=== PATIENT | male | born 1950 | race Caucasian/White ===

== ENCOUNTER → 2016-07-18 | Outpatient (CLI) | payer MEDICARE, MEDICAID ==
[~2016-07-18] MED LIST: /BACL20TA; ASPI325T; ATEN25TA; GLUC1000; LISI5TAB; METF500T4; NEUR100C; ROSU10TA; VICO5TAB
[2016-07-18 09:22] LABS: ANION GAP 6 MEQ/L (8-16); BLOOD UREA NITROGEN 18 MG/DL (7-18); CALCIUM LEVEL 8.9 MG/DL (8.8-10.2); CARBON DIOXIDE LEVEL 28 MEQ/L (21-32); CHLORIDE LEVEL 106 MEQ/L (98-107); CREATININE FOR GFR 0.94 MG/DL (0.70-1.30); GLOMERULAR FILTRATION RATE > 60.0 (>49); GLUCOSE, FASTING 212 MG/DL (80-110); POTASSIUM SERUM 4.4 MEQ/L (3.5-5.1); SODIUM LEVEL 140 MEQ/L (136-145)
== END ==
LOC: M LAB 07:51
PROVIDERS: ATTEND Family Medicine
DX: E11.9 Type 2 diabetes mellitus without complications (principal)

== ENCOUNTER 2019-06-30 09:40 | Emergency (ER) | payer MEDICARE, MEDICAID ==
[~2019-06-30] VITALS: Ht 177.8 cm; Wt 108.7 kg
[2019-06-30 09:40] VITALS: BP 178/85
[~2019-06-30 09:40] MED LIST changes: -/BACL20TA; +BACL1TAB9; +CRES10TA32; -ROSU10TA
[2019-06-30] MEDS ORDERED: BACT800T5 PO (10:01)
[2019-06-30] MEDS ORDERED: IBUP80TA PO (10:01)
== END 2019-06-30 10:12 | disposition home or self-care (01) ==
LOC: M ED 09:40
DX: K13.0 Diseases of lips (principal); E11.9 Type 2 diabetes mellitus without complications; I10 Essential (primary) hypertension; G47.33 Obstructive sleep apnea (adult) (pediatric); I25.2 Old myocardial infarction; M54.9 Dorsalgia, unspecified; Z88.1 Allergy status to other antibiotic agents; Z79.899 Other long term (current) drug therapy; Z79.82 Long term (current) use of aspirin; Z79.84 Long term (current) use of oral hypoglycemic drugs

== ENCOUNTER → 2020-08-24 | Outpatient (CLI) | payer MEDICARE, OTHER ==
[~2020-08-24] MED LIST changes: +BACT800T5 PO; +IBUP80TA PO
[2020-08-24 10:09] LABS: HEMATOCRIT 46.9 % (42.0-52.0); HEMOGLOBIN 15.9 g/dl (13.5-17.5); MEAN CORPUSCULAR HEMOGLOBIN 29.6 pg (27.0-33.0); MEAN CORPUSCULAR HGB CONC 33.9 g/dl (32.0-36.5); MEAN CORPUSCULAR VOLUME 87.2 fl (80.0-96.0); PLATELET COUNT, AUTOMATED 250 10^3/uL (150-450); RED BLOOD COUNT 5.38 10^6/uL (4.30-6.10); WHITE BLOOD COUNT 9.1 10^3/uL (4.0-10.0)
[2020-08-24 10:59] LABS: ALBUMIN 3.8 GM/DL (3.2-5.2); ALT/SGPT 46 U/L (12-78); BILIRUBIN,TOTAL 0.6 MG/DL (0.2-1.0); BLOOD UREA NITROGEN 21 MG/DL (7-18); CALCIUM LEVEL 9.8 MG/DL (8.8-10.2); CARBON DIOXIDE LEVEL 24 MEQ/L (21-32); CHLORIDE LEVEL 103 MEQ/L (98-107); CHOLESTEROL LEVEL 146 MG/DL (<200); CHOLESTEROL RISK RATIO 3.476 (<5); CREATININE FOR GFR 0.93 MG/DL (0.70-1.30); GLOMERULAR FILTRATION RATE > 60.0 (>49); GLUCOSE, FASTING 358 MG/DL (70-100); HDL CHOLESTEROL 42 MG/DL (>40); LDL CHOLESTEROL 78 MG/DL (<100); NON-HDL-C 104 MG/DL; SODIUM LEVEL 135 MEQ/L (136-145); TOTAL PROTEIN 6.7 GM/DL (6.4-8.2); TRIGLYCERIDES LEVEL 131 MG/DL (<150)
[2020-08-24 11:13] LABS: CREATININE, URINE 43.7 MG/DL; MALB URINE SIEMENS 28.5 MG/L; MAU/CREAT RATIO 65.2 MCG/MG (0.0-30.0)
[2020-08-24 16:03] LABS: HEMOGLOBIN A1c 12.4 %
== END ==
LOC: M LAB 08:55
PROVIDERS: ATTEND Family Medicine
DX: Z12.5 Encounter for screening for malignant neoplasm of prostate (principal); E11.9 Type 2 diabetes mellitus without complications
CPT/HCPCS: 36415; 80053; 80061; 82043; 83036; 85027; G0103

== ENCOUNTER 2021-02-06 05:28 | Inpatient (IN) | payer OTHER ==
[~2021-02-06] VITALS: Ht 177.8 cm; Wt 91.1 kg
[2021-02-06] MEDS ORDERED: ONDANSETRON 4MG/2ML VIAL As Ordered ONE ×2 (06:28→16:24)
[2021-02-06] MEDS ORDERED: ONDANSETRON 4MG/2ML VIAL IV ONE ×2 (06:30→10:55)
[2021-02-06 06:47] LABS: BASO # 0.1 10^3/uL (0.0-0.2); BASO % 0.4 % (0.0-1.0); EOS # 0.1 10^3/uL (0.0-0.5); EOS % 0.3 % (0.0-3.0); HEMATOCRIT 40.8 % (42.0-52.0); LYMPH # 1.3 10^3/uL (1.5-5.0); LYMPH % 6.7 % (24.0-44.0); MEAN CORPUSCULAR HEMOGLOBIN 29.6 pg (27.0-33.0); MEAN CORPUSCULAR HGB CONC 34.3 g/dl (32.0-36.5); MEAN CORPUSCULAR VOLUME 86.3 fl (80.0-96.0); MONO # 1.4 10^3/uL (0.0-0.8); MONO % 7.2 % (2.0-8.0); NEUTROPHILS # 16.4 10^3/uL (1.5-8.5); NEUTROPHILS % 84.5 % (36.0-66.0); PLATELET COUNT, AUTOMATED 284 10^3/uL (150-450); RED BLOOD COUNT 4.73 10^6/uL (4.30-6.10); WHITE BLOOD COUNT 19.5 10^3/uL (4.0-10.0)
[2021-02-06 07:00] LABS: ALBUMIN 2.8 GM/DL (3.2-5.2); ALT/SGPT 20 U/L (12-78); BILIRUBIN,DIRECT 0.3 MG/DL (0.0-0.2); BILIRUBIN,TOTAL 0.8 MG/DL (0.2-1.0); BLOOD UREA NITROGEN 18 MG/DL (7-18); CALCIUM LEVEL 9.2 MG/DL (8.8-10.2); CARBON DIOXIDE LEVEL 24 MEQ/L (21-32); CHLORIDE LEVEL 98 MEQ/L (98-107); CK-MB VALUE MASS 1.1 NG/ML (<3.6); CPK CREATINE PHOSPHOKINASE 70 U/L (39-308); CREATININE FOR GFR 0.94 MG/DL (0.70-1.30); GLOMERULAR FILTRATION RATE > 60.0 (>49); GLUCOSE, FASTING 386 MG/DL (70-100); LIPASE 47 U/L (73-393); MB/CK RELATIVE INDEX 1.57 (< OR =4); POTASSIUM SERUM 4.4 MEQ/L (3.5-5.1); SODIUM LEVEL 134 MEQ/L (136-145); TOTAL PROTEIN 6.1 GM/DL (6.4-8.2); TROPONIN I < 0.02 NG/ML (< 0.10)
[2021-02-06] MEDS ORDERED: NS 1,000 ML IV SCH ×2 (08:00→18:05)
--- NOTE | 2021-02-06 08:08 | REPVR ---
PROCEDURE INFORMATION: Exam: XR Chest Exam date and time: 02/06/2021 6:09 AM Age: 70 years old Clinical indication: Other: Chest pain TECHNIQUE: Imaging protocol: XR of the chest. Views: 1 view. COMPARISON: No relevant prior studies available. FINDINGS: Lungs: Emphysematous change, without acute airspace disease. Pleural spaces: No pleural effusion. Heart/Mediastinum: No cardiomegaly. Bones/joints: Median sternotomy. Osteopenia and degenerative change. IMPRESSION: Emphysematous change, without acute airspace disease. Electronically signed by: Jimmie Vela On 02/06/2021 08:08:05 AM
[2021-02-06] MEDS ORDERED: MED REC COMMENT (10:04)
[2021-02-06] MEDS ORDERED: LISI-898 PO (10:04)
[2021-02-06] MEDS ORDERED: SIMV40TA20 PO (10:04)
[2021-02-06] MEDS ORDERED: GLIP5TAB20 PO (10:04)
[2021-02-06] MEDS ORDERED: DULO1CAP6 PO (10:04)
[2021-02-06] MEDS ORDERED: HOME MED LIST COMPLETE! XX SCH (10:05)
--- NOTE | 2021-02-06 10:32 | REP ---
INDICATION: left testicular swelling, scrotal abscess. COMPARISON: Comparison sonography May 17, 2013. TECHNIQUE: High-resolution bilateral scrotal sonography. FINDINGS: Testicular parenchyma is homogeneous. No intratesticular mass lesion is seen on either side. Right testis measures 4.6 x 2.1 x 3.3 cm. Left testicular dimensions are 4.6 x 2.1 x 2.9 cm. Testicular Doppler flow is preserved bilaterally. Right testis resistive index 0.57 and that on the left 0.44. Some nodular epididymal changes are noted consistent with previous epididymitis. No intrascrotal mass lesion is observed. There is a complex echogenic area in the left inferior scrotum/perineum margin containing small foci of shadowing and echogenic reflectors. This area measures 3.4 x 2.7 cm. The echogenic foci may reflect soft tissue air. Findings suggestive of perineal/scrotal abscess. This should be correlated with area of concern on clinical exam. IMPRESSION: Possible scrotal wall/peroneal abscess, 3.4 cm in greatest diameter. No intratesticular mass lesion is seen. No significant intrascrotal abnormality. <Electronically signed by Shabbir Castillo > 02/06/21 1021
[2021-02-06] MEDS ORDERED: VANCOMYCIN HCL IV ONE (10:50)
[2021-02-06] MEDS ORDERED: PIPERACILLIN/TAZOBACTAM SOD 4.5 GM in D5W MINI-BAG PLUS 50 ML IV ONE (10:50)
[2021-02-06] MEDS ORDERED: FLUID PLACE HOLDER IV ONE (10:50)
[2021-02-06] MEDS ORDERED: ACETAMINOPHEN 325 MG TAB PO ONE (10:55)
[2021-02-06] MEDS ORDERED: ISOVUE-370 76% 100ML VIAL As Ordered ONE (11:02)
[2021-02-06] MEDS ORDERED: VANCOMYCIN HCL 1,000 MG, VIAL MATE ADAPTER 1 EACH in NS 250 ML IV SCH (11:40)
[2021-02-06] MEDS ORDERED: ONDANSETRON 4MG/2ML VIAL IV PRN ×2 (11:50→17:10)
[2021-02-06] MEDS ORDERED: VANCOMYCIN HCL 1,000 MG, VIAL MATE ADAPTER 1 EACH in NS 250 ML IV ONE ×2 (12:00→13:00)
--- NOTE | 2021-02-06 12:03 | REP ---
INDICATION: IV only: scrotal/perineal abscesses. COMPARISON: Comparison is made with today's scrotal sonography. TECHNIQUE: Helical scanning is acquired following the intravenous injection of 100 mL of Isovue 370. Axial 3 3 mm images re-formatted. Coronal and sagittal MPR images are generated. 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 Bowel gas pattern is nonspecific. Axial CT images of the pelvis show no bony destructive lesion. No pelvic mass or adenopathy is seen. Urinary bladder, prostate, and seminal vesicles are unremarkable. There are 1 or 2 nonspecific left inguinal lymph nodes. The largest of these measures 1.4 cm in greatest diameter. There is a left inferior scrotal wall abscess containing air bubbles. The air and fluid collection in the left inferior scrotum measures 5.8 cm in greatest dimension by 1.6 cm by 3.3 cm. There is a tract containing air bubbles and a small quantity of fluid extending to the left side perianal region where there is another air and fluid collection measuring approximately 3.8 cm in greatest diameter. IMPRESSION: Left inferior scrotum left perineum and left perianal abscess containing air bubbles and some fluid. There are 2 small reactive lymph nodes in the left inguinal soft tissues. No other significant finding. <Electronically signed by Shabbir Castillo > 02/06/21 [id number]
--- NOTE | 2021-02-06 12:51 | SMCUROLCON ---
Urology Consultation General Date of Consultation 02/06/21 Reason For Consultation asked to see re scrotal/perineal abscess History of Present Illness 70yo wm with dm2 presents with several days of scrotal pain. Pt squeezed a boil early on. Things worsened with time. Fevers. Nausea. U/s and ct done. S crotal and perineal abscess. Past Medical History Medical History dm2 cad htn Surgical Hstory cabg knees back surgeries Family History Significant Family History: No pertinent family hx Social History * Smoker: non-smoker Drugs: denies Medications Current Medications Current Medications Medications (Trade) Dose Ordered Sig/Olivia Route PRN Reason Start Time Stop Time Status Last Admin Dose Admin Acetaminophen (Tylenol Tab) 650 mg Q4H PRN PO MILD PAIN or TEMP > 101 02/06/21 11:40 UNV Duloxetine HCl (Cymbalta) 60 mg DAILY PO 02/07/21 09:00 UNV Home Med (Home Med List Complete!) ASDIRECTED XX 02/06/21 10:05 02/06/21 10:06 DC Lisinopril (Prinivil) 5 mg DAILY PO 02/07/21 09:00 UNV Piperacillin Sod/ Tazobactam Sod 3.375 gm/Dextrose 50 ml @ 50 mls/hr Q6H IV 02/06/21 11:40 UNV Simvastatin (Zocor) 40 mg QHS PO 02/06/21 21:00 UNV Sodium Chloride 1,000 ml @ 100 mls/hr Q10H IV 02/06/21 08:00 02/06/21 08:20 Vancomycin HCl 1000 mg/IV Miscellaneous Supplies 1 each/ Sodium Chloride 270 ml @ 270 mls/hr Q12H IV 02/06/21 11:40 UNV Allergies Allergies: Coded Allergies: Tetracyclines (Verified Allergy, Mild, BLISTERS, 06/30/19) Review of Systems General: Reports: Malaise Constitutional: Reports: Fever Eyes: Denies: Vision change ENT: Denies: Head Aches Skin: Reports: Other (scrotal skin changes) Pulmonary: Denies: Cough Cardiovascular: Denies Palpitations Gastrointestinal: Reports: Nausea Genitourinary: Denies: Dysuria, Frequency Hematologic: Denies: Bruising Endocrine: Denies: Polydipsia Musculoskeletal: Denies: Neck Pain Neurological: Denies: Weakness Psych: Reports: Mood Normal Physical Examination General Exam: Alert, Cooperative, No Acute Distress EYE EXAM: Conjunctiva & lids normal ENT EXAM: Mucous membr. moist/pink Neck Exam: Supple Chest Exam: Clear to auscultation Heart Exam: Rate Normal Abdomen Exam: Soft; No: Tenderness Male Exam penis without lesions testes epididymides normal scrotal skin about 2in x 2in, dark scrotal abscess and perineal abscess, swelling and tenderness, fluctuance Extremity Exam: No: Clubbing Skin Exam: Nl turgor and temperature Neuro Exam: Normal Speech Psych Exam: Mental status NL Vital Signs/I&O Vital Signs Date Time Temp Pulse Resp B/P (MAP) Pulse Ox O2 Delivery O2 Flow Rate FiO2 02/06/21 11:00 101.2 107 18 150/55 (86) 95 Room Air Laboratory Data 24H Labs Laboratory Tests 2 02/06/21 06:24: Immature Granulocyte % (Auto) 0.9, Neutrophils (%) (Auto) 84.5H, Lymphocytes (%) (Auto) 6.7L, Monocytes (%) (Auto) 7.2, Eosinophils (%) (Auto) 0.3, Basophils (%) (Auto) 0.4, Neutrophils # (Auto) 16.4H, Lymphocytes # (Auto) 1.3L, Monocytes # (Auto) 1.4H, Eosinophils # (Auto) 0.1, Basophils # (Auto) 0.1, Nucleated Red Blood Cells % (auto) 0.0, Anion Gap 12, Glomerular Filtration Rate > 60.0, Calcium Level 9.2, Total Bilirubin 0.8, Direct Bilirubin 0.3H, Aspartate Amino Transf (AST/SGOT) 10, Alanine Aminotransferase (ALT/SGPT) 20, Alkaline Phosphat ase 84, Total Creatine Kinase 70, Creatine Kinase MB 1.1, Creatine Kinase MB Relative Index 1.57, Troponin I < 0.02, Total Protein 6.1L, Albumin 2.8L, Albumin/Globulin Ratio 0.8, Lipase 47L 02/06/21 08:16: Lactic Acid Level 2.1*H 02/06/21 12:22: 02/06/21 12:23: Urine Color YELLOW, Urine Appearance CLEAR, Urine pH 5.0, Urine Specific [place] 1.030, Urine Protein NEGATIVE, Urine Glucose (UA) 3+H, Urine Ketones 1+H, Urine Blood NEGATIVE, Urine Nitrite NEGATIVE, Urine Bilirubin NEGATIVE, Urine Urobilinogen 0.2, Urine Leukocyte Esterase NEGATIVE, Urine WBC (Auto) 0, Urine RBC (Auto) 1, Urine Hyaline Casts (Auto) 0, Urine Bacteria (Auto) NEGATIVE, Urine Squamous Epithelial Cells 0, Urine Sperm (Auto) CBC/BMP Laboratory Tests 02/06/21 06:24 Microbiology Microbiology 02/06/21 Blood Culture, Received Pending 02/06/21 Respiratory Virus Panel (PCR) ([facility]) - Final, Complete 02/06/21 Blood Culture, Received Pending Assessment left scrotal and perineal abscess on exam and imaging leukocytosis elevated lactate fever pt will require incision and drainage of abscess in OR, necrotic scrotal wall tissue will be excised broad spectrum antibiotic coverage - vanc and Zosyn culture of abscess will be obtained at time of surgery covid testing if not already done keep pt npo will look into when I can do surgery Plan see above DEANDRE JOSEPH MD Feb 06, 2021 12:51
[2021-02-06] MEDS ORDERED: propofoL 200 MG/20 ML VIAL As Ordered ONE (14:29)
[2021-02-06] MEDS ORDERED: LIDOCAINE 2% 100MG/5ML SDV (FOR ANES.) As Ordered ONE (14:29)
[2021-02-06] MEDS ORDERED: fentaNYL 100 MCG/2 ML INJECTION (J3010) As Ordered ONE ×2 (14:29→16:21)
[2021-02-06] MEDS ORDERED: MIDAZOLAM INJ 2MG/2ML VIAL (J2250 PER 1MG) As Ordered ONE (14:30)
--- NOTE | 2021-02-06 14:35 | HPEPDOC ---
[facility] Medical History & Physical Date of Admission Feb 06, 2021 Date of Service: Feb 06, 2021 Attending Physician: BONITA RODRIGUEZ MD History and Physical CHIEF COMPLAINT: Scrotal pain HISTORY OF PRESENT ILLNESS: 70 yo M with a history of NIDDM, HTN, HLD, chronic back pain managed with smok ing marijuana, CAD s/p remote CABG who developed N/V 4 d ago and then noticed a swelling to his inner thigh on the L side that became painful overtime and turned purplish/back and grew in size and decided to present to the ED for it. In the ED, he was febrile to 101.2, and otherwise hypertensive to SBP 150s and reported some moderate pain. On examination he had a hyperpigmented scrotal wall abscess. Workup was notable for leukocytosis to 19.5, with PMN predominance, scrotal US that showed a scrotal wall/peroneal abscess that was 3.4cm in diameter witout intratesticular masses or abnormalities, lactic acidosis to 2.1, while Hgb was 14, platelet 284, na 134, K 4.4, Cr 0.94 and CXR showed emphysema without infiltrates or effusions. Urology was consulted from the ED and recommended admission to medicine and a CT of the scrotum that is pending, while keeping him NPO as he plans for drainage. He otherwise reports that he had not noticed any fever at home, had no dysuria, hematuria, chest pain, palpitations, SOB, no recent sexual intercourse or penile discharge. PAST MEDICAL HISTORY: NIDDM HTN HLD chronic back pain managed with smoking marijuana CAD s/p remote CABG Has a history of MRSA PAST SURGICAL HISTORY: CABG Bilateral knee surgeries Back surgeries Bilateral cataract surgery Tonsillectomy SOCIAL HISTORY: Tobacco use: Denies ETOH: Very rare Illicit drug use: smokes marijuana daily for chronic pain ALLERGIES: Please see below. REVIEW OF SYSTEMS: 10 point ROS was completed and otherwise negative, except as noted in the HPI. HOME MEDICATIONS: Please see below. PHYSICAL EXAMINATION: VITAL SIGNS: see below GENERAL APPEARANCE: NAD, disheveled/with long ungroomed gupta and hair HEENT: NCAT, EOMI, MMM CARDIOVASCULAR: RRR, no m/r/g LUNGS: CTAB without wheezing or crackles ABDOMEN: Normoactive bowel sounds, soft, NTND EXTREMITIES: WWP, no LE edema NEUROLOGICAL: CN 3-12 intact, speech clear, 5/5 strength PSYCHIATRIC: AOx3 : has puplish/black collection under L scrotum, tender LABORATORY DATA and IMAGING: Reviewed above MICROBIOLOGY: Please see below. ASSESSMENT: 70 yo M with a history of NIDDM, HTN, HLD, chronic back pain, CAD s/p remote CABG who developed N/V 4 d ago and then noticed a swelling to his inner thigh on the L side that became painful overtime and turned purplish/back and grew in size and decided to present to the ED who is now being admitted for a scrotal wall abscess. PLAN: Scrotal wall abscess: -urology consulted -Empiric vanc/piptazo, given sepsis and history of MRSA -MRSA PCR -NPO for potential I&D pending final word from urology on timing Sepsis: 2/2 scrotal wall abscess, w/ leukocytosis, fever, tachycardia -s/p IVF in the ED, currently hypertensive -continue empiric vanc/piptazo -f/u BCx -UA/UCx -CXR was negative for infectious process Lactic acidosis i/s/o sepsis -s/p fluids -will f/u at 4h DM: -hold home glipizide -NPO at this time, but I expect he will have a consistent carb post drainage with SSI AC/HS HTN: -will plan on resume home ACEi tomorrow AM HLD: - continue home simvastatin CAD: -s/p remote CABG Depression: -continue duloxetine DVT ppx: TEDs and SCDs for now pending urological procedure Vital Signs Vital Signs Date Time Temp Pulse Resp B/P (MAP) Pulse Ox O2 Delivery O2 Flow Rate FiO2 02/06/21 12:45 100.0 109 18 112/60 (77) 96 Room Air Laboratory Data Labs 24H Laboratory Tests 2 02/06/21 06:24: Immature Granulocyte % (Auto) 0.9, Neutrophils (%) (Auto) 84.5H, Lymphocytes (%) (Auto) 6.7L, Monocytes (%) (Auto) 7.2, Eosinophils (%) (Auto) 0.3, Basophils (%) (Auto) 0.4, Neutrophils # (Auto) 16.4H, Lymphocytes # (Auto) 1.3L, Monocytes # (Auto) 1.4H, Eosinophils # (Auto) 0.1, Basophils # (Auto) 0.1, Nucleated Red Blood Cells % (auto) 0.0, Anion Gap 12, Glomerular Filtration Rate > 60.0, Calcium Level 9.2, Total Bilirubin 0.8, Direct Bilirubin 0.3H, Aspartate Amino Transf (AST/SGOT) 10, Alanine Aminotransferase (ALT/SGPT) 20, Alkaline Phosphatase 84, Total Creatine Kinase 70, Creatine Kinase MB 1.1, Creatine Kinase MB Relative Index 1.57, Troponin I < 0.02, Total Protein 6.1L, Albumin 2.8L, Albumin/Globulin Ratio 0.8, Lipase 47L 02/06/21 08:16: Lactic Acid Level 2.1*H 02/06/21 12:22: 02/06/21 12:23: Urine Color YELLOW, Urine Appearance CLEAR, Urine pH 5.0, Urine Specific [place] 1.030, Urine Protein NEGATIVE, Urine Glucose (UA) 3+H, Urine Ketones 1+H, Urine Blood NEGATIVE, Urine Nitrite NEGATIVE, Urine Bilirubin NEGATIVE, Urine Urobilinogen 0.2, Urine Leukocyte Esterase NEGATIVE, Urine WBC (Auto) 0, Urine RBC (Auto) 1, Urine Hyaline Casts (Auto) 0, Urine Bacteria (Auto) NEGATIVE, Urine Squamous Epithelial Cells 0, Urine Sperm (Auto) 02/06/21 12:38: Lactic Acid Followup at 4 Hours 2.0 CBC/BMP Laboratory Tests 02/06/21 06:24 Microbiology Microbiology 02/06/21 Blood Culture, Received Pending 02/06/21 Respiratory Virus Panel (PCR) ([facility]) - Final, Complete 02/06/21 Blood Culture, Received Pending Home Medications Scheduled Duloxetine Hcl (Duloxetine HCl) 60 Mg Capsule.dr, 60 MG PO DAILY Glipizide (Glipizide ER) 5 Mg Tab.er.24, 5 MG PO DAILY Lisinopril (Lisinopril) 5 Mg Tablet, 5 MG PO DAILY Simvastatin (Simvastatin) 40 Mg Tablet, 40 MG PO QHS Miscellaneous Medications [Med Rec Comment] LIST OBTAINED FROM [facility] Allergies Coded Allergies: Tetracyclines (Verified Allergy, Mild, BLISTERS, 06/30/19) A-FIB/CHADSVASC A-FIB History Current/History of A-Fib/PAF?: No Current PO Anticoag Therapy: No Age/Risk Factor Scoring CHADSVASC: CHADSVASC Response (Comments) Value Age Risk Factor Age 65-74 years old 1 Gender Risk Factor Male 0 Hx of CHF No 0 Hx of HTN Yes 1 Hx of Stroke/TIA/or VTE No 0 Hx of Diabetes Yes 1 Hx of Vascular Disease Yes 1 Total 4 Treatment Treatment ordered: NONE Reason Anticoagulant not given: Not indicated/[id number] BONITA RODRIGUEZ MD Feb 06, 2021 14:35
[2021-02-06] MEDS ORDERED: METOCLOPRAMIDE INJ 10MG/2ML VIAL (J2765 PER 1) As Ordered ONE (16:24)
[2021-02-06] MEDS ORDERED: KETOROLAC 60MG 2ML VIAL As Ordered ONE (16:39)
--- NOTE | 2021-02-06 16:55 | IPNPDOC ---
Date Seen The patient was seen on 02/06/21. Progress Note s/p I and D and excision of necrotic tissue scrotal wall abscess (mostly left) that extended to perineum rectum not involved, left hemiscrotal space not involved cx's obtained packing in place will need packing changes might need return to OR for relook broad spectrum antibiotic coverage VS, I&O, 24H, Fishbone Vital Signs/I&O Vital Signs Date Time Temp Pulse Resp B/P (MAP) Pulse Ox O2 Delivery O2 Flow Rate FiO2 02/06/21 13:50 100.2 97 18 120/56 (77) 96 Room Air Laboratory Data 24H LABS Laboratory Tests 2 02/06/21 06:24: Immature Granulocyte % (Auto) 0.9, Neutrophils (%) (Auto) 84.5H, Lymphocytes (%) (Auto) 6.7L, Monocytes (%) (Auto) 7.2, Eosinophils (%) (Auto) 0.3, Basophils (%) (Auto) 0.4, Neutrophils # (Auto) 16.4H, Lymphocytes # (Auto) 1.3L, Monocytes # (Auto) 1.4H, Eosinophils # (Auto) 0.1, Basophils # (Auto) 0.1, Nucleated Red Blood Cells % (auto) 0.0, Anion Gap 12, Glomerular Filtration Rate > 60.0, Calcium Level 9.2, Total Bilirubin 0.8, Direct Bilirubin 0.3H, Aspartate Amino Transf (AST/SGOT) 10, Alanine Aminotransferase (ALT/SGPT) 20, Alkaline Phosp hatase 84, Total Creatine Kinase 70, Creatine Kinase MB 1.1, Creatine Kinase MB Relative Index 1.57, Troponin I < 0.02, Total Protein 6.1L, Albumin 2.8L, Albumin/Globulin Ratio 0.8, Lipase 47L 02/06/21 08:16: Lactic Acid Level 2.1*H 02/06/21 12:22: Methicillin-Resist S.aureus DNA PCR NOT DETECTED 02/06/21 12:23: Urine Color YELLOW, Urine Appearance CLEAR, Urine pH 5.0, Urine Specific [place] 1.030, Urine Protein NEGATIVE, Urine Glucose (UA) 3+H, Urine Ketones 1+H, Urine Blood NEGATIVE, Urine Nitrite NEGATIVE, Urine Bilirubin NEGATIVE, Urine Urobilinogen 0.2, Urine Leukocyte Esterase NEGATIVE, Urine WBC (Auto) 0, Urine RBC (Auto) 1, Urine Hyaline Casts (Auto) 0, Urine Bacteria (Auto) NEGATIVE, Urine Squamous Epithelial Cells 0, Urine Sperm (Auto) 02/06/21 12:38: Lactic Acid Followup at 4 Hours 2.0 CBC/BMP Laboratory Tests 02/06/21 06:24 Microbiology Microbiology 02/06/21 Blood Culture, Received Pending 02/06/21 Respiratory Virus Panel (PCR) ([facility]) - Final, Complete 02/06/21 Blood Culture, Received Pending DEANDRE JOSEPH MD Feb 06, 2021 16:55
[2021-02-06] MEDS ORDERED: oxyCODONE 5MG TAB PO PRN (17:10)
[2021-02-06] MEDS ORDERED: fentaNYL 100 MCG/2 ML INJECTION (J3010) IV PRN (17:10)
[2021-02-06] MEDS ORDERED: LR 1,000 ML IV SCH (17:10)
[2021-02-06 17:30] VITALS: BP 146/72
[2021-02-06 18:30] VITALS: BP 142/72
[2021-02-06] MEDS: PIPERACILLIN/TAZOBACTAM SOD 3.375 GM in D5W MINI-BAG PLUS 50 ML IV SCH (18:31)
[2021-02-06] MEDS ORDERED: DEXTROSE 50% 50 ML SYRINGE IV PRN (18:50)
[2021-02-06] MEDS ORDERED: GLUCOSE 4GM CHEW TABLET PO PRN (18:50)
[2021-02-06] MEDS ORDERED: GLUCAGON INJ 1MG VIAL SC PRN (18:50)
[2021-02-06 19:00] VITALS: BP 130/72
[2021-02-06] MEDS: SIMVASTATIN 40 MG TAB PO SCH (21:35)
[2021-02-06] MEDS: HumaLOG INSULIN (NovoLOG) PER UNIT SC SCH (21:37)
[2021-02-06] MEDS: VANCOMYCIN HCL 750 MG, VIAL MATE ADAPTER 1 EACH in NS 250 ML IV SCH (21:38)
[2021-02-06 22:00] VITALS: BP 137/50
[2021-02-06] MEDS: VANCOMYCIN HCL 500 MG in D5W MINI-BAG PLUS 100 ML IV SCH (23:00)
[2021-02-07] MEDS: PIPERACILLIN/TAZOBACTAM SOD 3.375 GM in D5W MINI-BAG PLUS 50 ML IV SCH ×5 (00:43→23:05)
--- NOTE | 2021-02-07 05:35 | ECGEPIP ---
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
[2021-02-07 06:00] VITALS: BP 115/50
[2021-02-07 06:43] LABS: HEMATOCRIT 34.8 % (42.0-52.0); MEAN CORPUSCULAR HEMOGLOBIN 29.9 pg (27.0-33.0); MEAN CORPUSCULAR HGB CONC 34.2 g/dl (32.0-36.5); MEAN CORPUSCULAR VOLUME 87.4 fl (80.0-96.0); PLATELET COUNT, AUTOMATED 267 10^3/uL (150-450); RED BLOOD COUNT 3.98 10^6/uL (4.30-6.10); WHITE BLOOD COUNT 13.5 10^3/uL (4.0-10.0)
[2021-02-07 06:44] LABS: HEMOGLOBIN 11.9 g/dl (13.5-17.5)
[2021-02-07 07:00] LABS: BLOOD UREA NITROGEN 16 MG/DL (7-18); CALCIUM LEVEL 8.1 MG/DL (8.8-10.2); CARBON DIOXIDE LEVEL 24 MEQ/L (21-32); CHLORIDE LEVEL 102 MEQ/L (98-107); CREATININE FOR GFR 0.87 MG/DL (0.70-1.30); GLOMERULAR FILTRATION RATE > 60.0 (>49); GLUCOSE, FASTING 318 MG/DL (70-100); MAGNESIUM LEVEL 1.6 MG/DL (1.8-2.4); SODIUM LEVEL 136 MEQ/L (136-145)
[2021-02-07] MEDS: DULoxetine 30MG CAPSULE (CYMBALTA) PO SCH (08:26)
[2021-02-07] MEDS: lisinopriL 5 MG TAB PO SCH (08:29)
[2021-02-07] MEDS: HumaLOG INSULIN (NovoLOG) PER UNIT SC SCH ×4 (08:29→22:05)
[2021-02-07] MEDS ORDERED: FLUBLOK(EGG FREE)(QUAD)INFLUENZA VACC 0.5ML SYRINGE 18YRS & OLDER IM ONE (09:00)
[2021-02-07] MEDS ORDERED: PREVNAR 13 VACCINE SYRINGE IM ONE (09:00)
[2021-02-07] MEDS: VANCOMYCIN HCL 750 MG, VIAL MATE ADAPTER 1 EACH in NS 250 ML IV SCH (10:09)
[2021-02-07] MEDS: VANCOMYCIN HCL 500 MG in D5W MINI-BAG PLUS 100 ML IV SCH (11:00)
[2021-02-07 14:00] VITALS: BP 120/62
[2021-02-07] MEDS ORDERED: MAG SULF 1GM/100ML (MAG RUN) 1 GM in IV 1 EA IV ONE (14:00)
--- NOTE | 2021-02-07 14:05 | IPNPDOC ---
Text Note Date of Service The patient was seen on 02/07/21. NOTE SUBJECTIVE: -Pain much improved after I&D yesterday -Unfortunately since starting antibiotics has been having diarrhea. No abdominal pain, fever, chills. Has had some N/V. OBJECTIVE: PHYSICAL EXAMINATION: VITAL SIGNS: see below GENERAL APPEARANCE: NAD HEENT: NCAT, EOMI, MMM CARDIOVASCULAR: RRR, no m/r/g LUNGS: CTAB without wheezing or crackles ABDOMEN: Normoactive bowel sounds, soft, NTND EXTREMITIES: WWP, no LE edema NEUROLOGICAL: CN 3-12 intact, speech clear, 5/5 strength PSYCHIATRIC: AOx3 LABORATORY DATA and IMAGING: Reviewed WBC downtrended to 13.5 MICROBIOLOGY: Please see below. ASSESSMENT: 70 yo M with a history of NIDDM, HTN, HLD, chronic back pain, CAD s/p remote CABG who developed N/V 4 d ago and then noticed a swelling to his inner thigh on the L side that became painful overtime and turned purplish/back and grew in size and decided to present to the ED and was admitted for a scrotal wall abscess s/p I&D by urology on 02/06. PLAN: Scrotal wall abscess: -urology consulted, s/p I&D on 02/06 -Empiric piptazo. DC vanc now that he is MRSA negative and gram stain thus far showing GPCs in pairs and GNRs. Sepsis: 2/2 scrotal wall abscess, w/ leukocytosis, fever, tachycardia -s/p IVF -continue empiric piptazo -f/u BCx NGTD -UA negative -CXR was negative for infectious process Lactic acidosis i/s/o sepsis, resolved -s/p fluids DM: -holding home glipizide -Consistent carb diet -levemir 5u QHS for persistent hyperglycemia -SSI AC/HS -FSBG AC/HS HTN: -continue home ACEi HLD: - continue home simvastatin CAD: -s/p remote CABG Depression: -continue duloxetine Diarrhea: likely 2/2 antibiotics -dc'd IV vanc -GI panel -probiotic ACHS DVT ppx: TEDs and SCDs VS,Fishbone, I+O VS, Fishbone, I+O Laboratory Tests 02/07/21 06:20 Vital Signs Date Time Temp Pulse Resp B/P (MAP) Pulse Ox O2 Delivery O2 Flow Rate FiO2 02/07/21 08:29 113/59 02/07/21 06:00 99.7 90 18 94 Room Air 02/06/21 16:55 10.0 I&O- Last 24 Hours up to 6 AM 02/07/21 05:59 Intake Total 1070 ml Output Total 10 ml Balance 1060 ml BONITA RODRIGUEZ MD Feb 07, 2021 14:05
--- NOTE | 2021-02-07 16:24 | IPNPDOC ---
Date Seen The patient was seen on 02/07/21. Progress Note pt seen and examined lying in bed watching football looks comfortable c/o diarrhea avss alert and appropriate belly soft wbc down a bit creatinine normal cx's pending medicine's note reviewed, greatly appreciate medicine's help will change packing tomorrow if there is a wound service at [facility], it should become involved wound vac? large wounds that are connected and will slowly heal by secondary intention pt's diarrhea will make for a less than ideal situation diarrhea secondary to antibiotic? if so, awfully quick to start rectum appeared not to be involved by infection and no debridement in area of sphincter was performed thank you [phone] VS, I&O, 24H, Fishbone Vital Signs/I&O Vital Signs Date Time Temp Pulse Resp B/P (MAP) Pulse Ox O2 Delivery O2 Flow Rate FiO2 02/07/21 14:00 98.7 92 20 120/62 (81) 96 Room Air 02/06/21 16:55 10.0 I&O- Last 24 Hours up to 6 AM 02/07/21 06:00 Intake Total 2405 ml Output Total 410 ml Balance 1995 ml Laboratory Data 24H LABS Laboratory Tests 2 02/06/21 19:17: Bedside Glucose (Misc Panel) 331H 02/07/21 06:20: Nucleated Red Blood Cells % (auto) 0.0, Anion Gap 10, Glomerular Filtration Rate > 60.0, Calcium Level 8.1L, Magnesium Level 1.6L 02/07/21 12:13: Bedside Glucose (Misc Panel) 301H CBC/BMP Laboratory Tests 02/07/21 06:20 Microbiology Microbiology 02/06/21 Gram Stain - Final, Resulted 02/06/21 Abscess Culture, Resulted Pending 02/06/21 Anaerobic Culture, Received Pending 02/06/21 Blood Culture - Preliminary, Resulted No growth after 24 hours . All specim... 02/06/21 Respiratory Virus Panel (PCR) ([facility]) - Final, Complete 02/06/21 Blood Culture - Preliminary, Resulted No growth after 24 hours . All specim... DEANDRE JOSEPH MD Feb 07, 2021 16:24
[2021-02-07] MEDS: LACTOBACILLUS ACIDOPHILUS CAP (BACID) PO SCH ×2 (18:01→22:03)
[2021-02-07] MEDS ORDERED: LEVEMIR (INSULIN DETEMIR) 1 UNITS/0.01ML SC SCH (21:00)
[2021-02-07 22:00] VITALS: BP 137/55
[2021-02-07] MEDS: SIMVASTATIN 40 MG TAB PO SCH (22:03)
[2021-02-08] MEDS: PIPERACILLIN/TAZOBACTAM SOD 3.375 GM in D5W MINI-BAG PLUS 50 ML IV SCH ×4 (05:11→22:56)
[2021-02-08 05:55] LABS: HEMATOCRIT 38.3 % (42.0-52.0); HEMOGLOBIN 12.9 g/dl (13.5-17.5); MEAN CORPUSCULAR HEMOGLOBIN 29.7 pg (27.0-33.0); MEAN CORPUSCULAR HGB CONC 33.7 g/dl (32.0-36.5); PLATELET COUNT, AUTOMATED 324 10^3/uL (150-450); RED BLOOD COUNT 4.35 10^6/uL (4.30-6.10); WHITE BLOOD COUNT 11.5 10^3/uL (4.0-10.0)
[2021-02-08 06:00] VITALS: BP 147/76
[2021-02-08 06:24] LABS: BLOOD UREA NITROGEN 11 MG/DL (7-18); CALCIUM LEVEL 8.4 MG/DL (8.8-10.2); CARBON DIOXIDE LEVEL 24 MEQ/L (21-32); CHLORIDE LEVEL 104 MEQ/L (98-107); CREATININE FOR GFR 0.71 MG/DL (0.70-1.30); GLOMERULAR FILTRATION RATE > 60.0 (>49); GLUCOSE, FASTING 246 MG/DL (70-100); MAGNESIUM LEVEL 2.1 MG/DL (1.8-2.4); POTASSIUM SERUM 3.6 MEQ/L (3.5-5.1); SODIUM LEVEL 138 MEQ/L (136-145)
[2021-02-08] MEDS: HumaLOG INSULIN (NovoLOG) PER UNIT SC SCH ×4 (08:40→20:36)
[2021-02-08] MEDS: DULoxetine 30MG CAPSULE (CYMBALTA) PO SCH (08:41)
[2021-02-08] MEDS: LACTOBACILLUS ACIDOPHILUS CAP (BACID) PO SCH ×4 (08:42→20:35)
[2021-02-08] MEDS: lisinopriL 5 MG TAB PO SCH (08:42)
[2021-02-08] MEDS ORDERED: LOPERAMIDE 2 MG CAPLET PO SCH (09:00)
[2021-02-08 14:00] VITALS: BP 153/75
[2021-02-08] MEDS: HYDROMORPHONE HCL 0.5 MG/ 0.5 ML SYRINGE (J1170 PER 1) IV PRN (15:47)
--- NOTE | 2021-02-08 15:58 | IPNPDOC ---
Date Seen The patient was seen on 02/08/21. Progress Note SUBJECTIVE: Patient is a 70-year-old male status post I&D of a scrotal abscess Monday. Since beginning antibiotics, however he does complain of having increased diarrhea and decreased appetite. He also reports nausea as well. Other symptoms patient reports is minor vomiting (spitting up). Declines experiencing chest pain, tachycardia, shortness of breath, pain with breathing, dysuria, hematuria, headache, dizziness OBJECTIVE PHYSICAL EXAMINATION: VITAL SIGNS: Please see below. GENERAL: 70-year-old occasion male, lying in bed, no acute distress HEENT: Head normocephalic/atraumatic CARDIOVASCULAR: Regular rate and rhythm, no murmurs, no rubs, no gallops. RESPIRATORY: Clear to auscultation bilaterally, no wheezes, no rhonchi, no crackles. ABDOMINAL: Hypoactive bowel sounds throughout, nontender to palpation, nondistended EXTREMITIES: Palpable radial and pedal pulses, no lower extremity swelling appreciated LABORATORY DATA, IMAGING STUDIES, MICROBIOLOGY: Reviewed DVT prophylaxis ordered?: Teds and sequentials ASSESSMENT AND PLAN: This is a 70-year-old occasion male with a scrotal abscess status post I&D with Dr. Skinner, who is experiencing diarrhea, nausea status post antibiotic administration. PROBLEMS: Scrotal wall abscess: -urology consulted, s/p I&D on 02/06 -Empiric piptazo. DC'd vanc now that he is MRSA negative and gram stain thus far showing GPCs in pairs and GNRs. Sepsis: 2/2 scrotal wall abscess, w/ leukocytosis, fever, tachycardia -s/p IVF -continue empiric piptazo -f/u BCx NGTD -UA negative -CXR was negative for infectious process Lactic acidosis i/s/o sepsis, resolved -s/p fluids DM: -holding home glipizide -Consistent carb diet -levemir 5u QHS for persistent hyperglycemia -SSI AC/HS -FSBG AC/HS HTN: -continue home ACEi HLD: - continue home simvastatin CAD: -s/p remote CABG Depression: -continue duloxetine Diarrhea: likely 2/2 antibiotics -dc'd IV vanc -GI panel -probiotic ACHS DVT ppx: TEDs and SCDs VS, I&O, 24H, Fishbone Vital Signs/I&O Vital Signs Date Time Temp Pulse Resp B/P (MAP) Pulse Ox O2 Delivery O2 Flow Rate FiO2 02/08/21 14:00 98.1 82 18 153/75 (101) 96 Room Air 02/06/21 16:55 10.0 I&O- Last 24 Hours up to 6 AM 02/08/21 06:00 Intake Total 1850 ml Output Total 600 ml Balance 1250 ml Laboratory Data 24H LABS Laboratory Tests 2 02/07/21 16:30: Bedside Glucose (Misc Panel) 252H 02/07/21 20:36: Bedside Glucose (Misc Panel) 253H 02/08/21 05:27: Nucleated Red Blood Cells % (auto) 0.0, Anion Gap 10, Glomerular Filtration Rate > 60.0, Calcium Level 8.4L, Magnesium Level 2.1 02/08/21 11:29: Bedside Glucose (Misc Panel) 249H CBC/BMP Laboratory Tests 02/08/21 05:27 Microbiology Microbiology 02/07/21 Gastrointestinal Tract Panel (PCR) - Final, Complete 02/06/21 Gram Stain - Final, Resulted 02/06/21 Abscess Culture, Resulted Pending 02/06/21 Anaerobic Culture, Received Pending 02/06/21 Blood Culture - Preliminary, Resulted No Growth after 48 hours. All Specime... 02/06/21 Respiratory Virus Panel (PCR) ([facility]) - Final, Complete 02/06/21 Blood Culture - Preliminary, Resulted No Growth after 48 hours. All Specime... GME ATTESTATION GME ATTESTATION My faculty preceptor for this patient encounter was physically present during the encounter and was fully available. All aspects of the patient interview, examination, medical decision making process, and medical care plan development were reviewed and approved by the faculty preceptor. The faculty preceptor is aware and concurs with the plan as stated in the body of this note and will a ttest to such by his/her cosignature. ATTENDING NOTE I personally examined Mr. Oliveros together with the entire teaching team, and I agree with the above noted assessment and plan. Briefly, he is a 70 yo M with a history of NIDDM, HTN, HLD, chronic back pain, CAD s/p remote CABG who was admitted for a scrotal wall abscess s/p I&D by urology on 02/06 and is on empiric zosyn with cultures growing GPCs in pairs and chains and GNRs, with course c/b diarrhea 2/2/ antibiotic therapy now improving with loperamide. Eladio Herrera DO Feb 08, 2021 15:58 BONITA RODRIGUEZ MD Feb 08, 2021 18:16
[2021-02-08] MEDS: LOPERAMIDE 2 MG CAPLET PO PRN (18:41)
[2021-02-08] MEDS: SIMVASTATIN 40 MG TAB PO SCH (20:35)
[2021-02-08] MEDS: LEVEMIR (INSULIN DETEMIR) 1 UNITS/0.01ML SC SCH (20:36)
[2021-02-08 21:05] VITALS: BP 134/83
[2021-02-09] MEDS: LOPERAMIDE 2 MG CAPLET PO PRN (02:47)
[2021-02-09] MEDS: PIPERACILLIN/TAZOBACTAM SOD 3.375 GM in D5W MINI-BAG PLUS 50 ML IV SCH ×2 (04:55→11:58)
[2021-02-09 05:48] LABS: HEMATOCRIT 38.6 % (42.0-52.0); HEMOGLOBIN 13.1 g/dl (13.5-17.5); MEAN CORPUSCULAR HEMOGLOBIN 29.2 pg (27.0-33.0); MEAN CORPUSCULAR HGB CONC 33.9 g/dl (32.0-36.5); MEAN CORPUSCULAR VOLUME 86.2 fl (80.0-96.0); PLATELET COUNT, AUTOMATED 335 10^3/uL (150-450); RED BLOOD COUNT 4.48 10^6/uL (4.30-6.10); WHITE BLOOD COUNT 10.5 10^3/uL (4.0-10.0)
[2021-02-09 05:54] VITALS: BP 145/69
[2021-02-09 06:20] LABS: BLOOD UREA NITROGEN 9 MG/DL (7-18); CALCIUM LEVEL 8.8 MG/DL (8.8-10.2); CARBON DIOXIDE LEVEL 25 MEQ/L (21-32); CHLORIDE LEVEL 104 MEQ/L (98-107); CREATININE FOR GFR 0.67 MG/DL (0.70-1.30); GLOMERULAR FILTRATION RATE > 60.0 (>49); GLUCOSE, FASTING 243 MG/DL (70-100); MAGNESIUM LEVEL 1.7 MG/DL (1.8-2.4); POTASSIUM SERUM 3.4 MEQ/L (3.5-5.1); SODIUM LEVEL 139 MEQ/L (136-145)
--- NOTE | 2021-02-09 06:52 | IPNPDOC ---
Date Seen The patient was seen on 02/09/21. Progress Note pt seen and examined yesterday afternoon packing was changed after giving pt dose of Dilaudid no new necrotic tissue wbc decreasing cx's pending nurse to change packing bid, Dilaudid before if need be no need to return to OR suggest getting general surgery involved to evaluate anal sphincter, pt totally incontinent of stool anticipate discharge home soon pt will need visiting nurse to change packing anticipate need for packing for several weeks thank you [phone] VS, I&O, 24H, Cindy Vital Signs/I&O Vital Signs Date Time Temp Pulse Resp B/P (MAP) Pulse Ox O2 Delivery O2 Flow Rate FiO2 02/09/21 05:54 99.0 72 18 145/69 (94) 97 Room Air 02/06/21 16:55 10.0 I&O- Last 24 Hours up to 6 AM 02/09/21 06:00 Intake Total 920 ml Output Total 300 ml Balance 620 ml Laboratory Data 24H LABS Laboratory Tests 2 02/08/21 11:29: Bedside Glucose (Misc Panel) 249H 02/08/21 17:30: Bedside Glucose (Misc Panel) 211H 02/08/21 20:14: Bedside Glucose (Misc Panel) 276H 02/09/21 05:28: Nucleated Red Blood Cells % (auto) 0.0, Anion Gap 10, Glomerular Filtration Rate > 60.0, Calcium Level 8.8, Magnesium Level 1.7L CBC/BMP Laboratory Tests 02/09/21 05:28 Microbiology Microbiology 02/07/21 Gastrointestinal Tract Panel (PCR) - Final, Complete 02/06/21 Gram Stain - Final, Resulted 02/06/21 Abscess Culture, Resulted Pending 02/06/21 Anaerobic Culture, Received Pending 02/06/21 Blood Culture - Preliminary, Resulted No Growth after 48 hours. All Specime... 02/06/21 Respiratory Virus Panel (PCR) ([facility]) - Final, Complete 02/06/21 Blood Culture - Preliminary, Resulted No Growth after 48 hours. All Specime... DEANDRE JOSEPH MD Feb 09, 2021 06:52
[2021-02-09] MEDS ORDERED: POTASSIUM CHLORIDE 10% LIQ 20 MEQ/15 ML UDC PO ONE (08:30)
[2021-02-09] MEDS: HumaLOG INSULIN (NovoLOG) PER UNIT SC SCH ×4 (08:38→21:00)
[2021-02-09] MEDS: LACTOBACILLUS ACIDOPHILUS CAP (BACID) PO SCH ×4 (08:38→21:24)
[2021-02-09] MEDS: lisinopriL 5 MG TAB PO SCH (08:40)
[2021-02-09] MEDS: DULoxetine 30MG CAPSULE (CYMBALTA) PO SCH (08:40)
[2021-02-09] MEDS ORDERED: MAG SULF 1GM/100ML (MAG RUN) 1 GM in IV 1 EA IV ONE (09:00)
[2021-02-09] MEDS: HYDROMORPHONE HCL 0.5 MG/ 0.5 ML SYRINGE (J1170 PER 1) IV PRN (12:12)
--- NOTE | 2021-02-09 14:10 | IPNPDOC ---
Date Seen The patient was seen on 02/09/21. Progress Note SUBJECTIVE: Patient is a 70-year-old male with history of type 2 diabetes, hypertension, hyperlipidemia, coronary artery disease status post CABG, depression, status post scrotal abscess I&D on 02/06/2021. Since procedure patient has been reporting constant diarrhea and is on his fourth day of Zosyn. Since 7 PM last night to this morning, reports having 7 episodes of diarrhea. He states he is seeing no blood in the diarrhea but is seeing blood on the toilet paper when he wipes. Review of systems: Constitutional: Denies chills, night sweats; reports fever (highest recorded overnight was 99 temporally) Cardiac: Denies chest pain, tachycardia Respiratory: Denies pain with breathing, coughing; reports short of breath with exertion which patient says is new since being here Gastrointestinal: Reports nausea, gagging, diarrhea Genitourinary: Denies dysuria, hematuria; reports straining with urination which patient endorses being new (feels like he has to go but nothing coming out) Neurological: Denies headache, dizziness, new numbness and tingling OBJECTIVE PHYSICAL EXAMINATION: VITAL SIGNS: Please see below. GENERAL: 70-year-old male, resting in bed, no acute distress, status post left scrotal abscess I&D on 02/06/2021, HEENT: Head normocephalic atraumatic CARDIOVASCULAR: Regular rate and rhythm, no murmurs, no rubs, no gallops. RESPIRATORY: Expiratory wheezes auscultated bilaterally (throughout left side and on right lung base). ABDOMINAL: Normoactive bowel sounds, nontender to palpation, nondistended EXTREMITIES: 2+ radial pulses bilaterally, no lower extremity edema appreciated LABORATORY DATA, IMAGING STUDIES, MICROBIOLOGY: Please see below. DVT prophylaxis ordered?: Teds and sequentials ASSESSMENT AND PLAN: This is a 70-year-old male status post I&D of a left scrotal abscess on 02/07/2021 on fourth day of Zosyn. He has suffered from diarrhea since procedure was done.. PROBLEMS: Scrotal wall abscess: -urology consulted, s/p I&D on 02/06 -Empiric piptazo (day 4). DC'd vanc now that he is MRSA negative and gram stain thus far showing GPCs in pairs and GNRs. Sepsis: 2/2 scrotal wall abscess, w/ leukocytosis, fever, tachycardia -s/p IVF -continue empiric piptazo -f/u BCx NGTD -UA negative -CXR was negative for infectious process -Changes to antibiotics will be made pending on culture results Lactic acidosis i/s/o sepsis, resolved -s/p fluids DM: -holding home glipizide -Consistent carb diet -levemir 5u QHS for persistent hyperglycemia -SSI AC/HS -FSBG AC/HS HTN: -continue home ACEi HLD: - continue home simvastatin CAD: -s/p remote CABG Depression: -continue duloxetine Diarrhea: likely 2/2 antibiotics -dc'd IV vanc -GI panel -probiotic ACHS -Due to ongoing diarrhea patient was supplemented with IV potassium (3.4 this a.m.) and magnesium (1.7 this a.m.) Pneumonia/deconditioning prophylaxis -Incentive spirometry ordered to encourage alveoli maximization prevention of atelectasis -PT eval was also placed and we welcome their recommendations DVT ppx: TEDs and SCDs VS, I&O, 24H, Fishbone Vital Signs/I&O Vital Signs Date Time Temp Pulse Resp B/P (MAP) Pulse Ox O2 Delivery O2 Flow Rate FiO2 02/09/21 12:43 18 02/09/21 08:40 158/86 02/09/21 05:54 99.0 72 97 Room Air 02/06/21 16:55 10.0 I&O- Last 24 Hours up to 6 AM 02/09/21 06:00 Intake Total 920 ml Output Total 300 ml Balance 620 ml Laboratory Data 24H LABS Laboratory Tests 2 02/08/21 17:30: Bedside Glucose (Misc Panel) 211H 02/08/21 20:14: Bedside Glucose (Misc Panel) 276H 02/09/21 05:28: Nucleated Red Blood Cells % (auto) 0.0, Anion Gap 10, Glomerular Filtration Rate > 60.0, Calcium Level 8.8, Magnesium Level 1.7L 02/09/21 11:10: Bedside Glucose (Misc Panel) 262H CBC/BMP Laboratory Tests 02/09/21 05:28 Microbiology Microbiology 02/07/21 Gastrointestinal Tract Panel (PCR) - Final, Complete 02/06/21 Gram Stain - Final, Complete 02/06/21 Abscess Culture - Final, Complete Staphylococcus Epidermidis 02/06/21 Anaerobic Culture, Received Pending 02/06/21 Blood Culture - Preliminary, Resulted No Growth after 72 hours. All specime... 02/06/21 Respiratory Virus Panel (PCR) ([facility]) - Final, Complete 02/06/21 Blood Culture - Preliminary, Resulted No Growth after 72 hours. All specime... GME ATTESTATION GME ATTESTATION My faculty preceptor for this patient encounter was physically present during the encounter and was fully available. All aspects of the patient interview, examination, medical decision making process, and medical care plan development were reviewed and approved by the faculty preceptor. The faculty preceptor is aware and concurs with the plan as stated in the body of this note and will attest to such by his/her cosignature. ATTENDING NOTE I, Carmelina Bowles, have independently examined this patient and performed my own physical exam, as well as reviewed the documentation and edited where necessary with the resident. For medical students we have performed the physical exam together and discussed medical decision making and I have verified the history. I have discussed in detail with the resident / student the findings and plan of treatment as documented by the resident / student and edited their note. I agree with their findings and treatment plan and have edited their documentation. I will continue to follow the patient during this hospital stay. Eladio Herrera DO Feb 09, 2021 14:10 CARMELINA BOWLES MD Feb 09, 2021 20:10
[2021-02-09] MEDS: TAMSULOSIN 0.4 MG CAP PO SCH ×2 (15:05→21:24)
[2021-02-09] MEDS: LevoFLOXacin 750 MG TABLET PO SCH (16:58)
[2021-02-09] MEDS: metroNIDAZOLE (FLAGYL) 500MG TABLET PO SCH ×2 (16:58→21:23)
[2021-02-09 20:23] VITALS: BP 107/73
[2021-02-09] MEDS: LEVEMIR (INSULIN DETEMIR) 1 UNITS/0.01ML SC SCH (21:24)
[2021-02-09] MEDS: SIMVASTATIN 40 MG TAB PO SCH (21:24)
[2021-02-10 05:00] VITALS: BP 154/77
[2021-02-10] MEDS: LevoFLOXacin 750 MG TABLET PO SCH (05:16)
[2021-02-10 05:39] LABS: HEMATOCRIT 38.1 % (42.0-52.0); HEMOGLOBIN 13.1 g/dl (13.5-17.5); MEAN CORPUSCULAR HEMOGLOBIN 29.6 pg (27.0-33.0); MEAN CORPUSCULAR HGB CONC 34.4 g/dl (32.0-36.5); PLATELET COUNT, AUTOMATED 344 10^3/uL (150-450); RED BLOOD COUNT 4.43 10^6/uL (4.30-6.10); WHITE BLOOD COUNT 9.7 10^3/uL (4.0-10.0)
[2021-02-10 06:06] LABS: BLOOD UREA NITROGEN 6 MG/DL (7-18); CALCIUM LEVEL 8.6 MG/DL (8.8-10.2); CARBON DIOXIDE LEVEL 29 MEQ/L (21-32); CHLORIDE LEVEL 103 MEQ/L (98-107); CREATININE FOR GFR 0.67 MG/DL (0.70-1.30); GLOMERULAR FILTRATION RATE > 60.0 (>49); GLUCOSE, FASTING 286 MG/DL (70-100); MAGNESIUM LEVEL 1.6 MG/DL (1.8-2.4); POTASSIUM SERUM 3.6 MEQ/L (3.5-5.1); SODIUM LEVEL 137 MEQ/L (136-145)
[2021-02-10] MEDS: HumaLOG INSULIN (NovoLOG) PER UNIT SC SCH ×4 (08:18→21:00)
[2021-02-10] MEDS: metroNIDAZOLE (FLAGYL) 500MG TABLET PO SCH ×3 (08:19→20:58)
[2021-02-10] MEDS: DULoxetine 30MG CAPSULE (CYMBALTA) PO SCH (08:19)
[2021-02-10] MEDS: LACTOBACILLUS ACIDOPHILUS CAP (BACID) PO SCH ×4 (08:19→20:58)
[2021-02-10] MEDS: TAMSULOSIN 0.4 MG CAP PO SCH ×2 (08:20→20:58)
[2021-02-10] MEDS: ACETAMINOPHEN TAB 650MG DOSE (2X325MG) PO PRN ×2 (08:21→12:29)
[2021-02-10 08:22] VITALS: BP 150/80
[2021-02-10] MEDS: MAG SULF 1GM/100ML (MAG RUN) 1 GM in IV 1 EA IV SCH ×2 (08:22→09:55)
--- NOTE | 2021-02-10 10:35 | REP ---
INDICATION: New onset sharp testicular pain. Known scrotal wall/peroneal abscess. COMPARISON: Comparison scrotal sonography February 06, 2021. TECHNIQUE: High-resolution bilateral scrotal sonography is performed. FINDINGS: Testicular parenchyma remains normal and homogeneous. No intratesticular mass lesion is seen. Testicular Doppler flow is preserved bilaterally. Resistive indices are 0.67 and 0.53 on the right and left respectively. Multiple small epididymal cysts are seen the largest on the right is 0.6 cm. Small bilateral hydroceles are noted. Previously noted left scrotal wall abscess is again seen measuring 2.9 x 0.5 x 0.8 cm today consistent with residual cavity post drainage. Inferior scrotal wall remains hyperemic and edematous. Right testis measures 4.8 x 1.9 x 3.2 cm. Left testicular dimensions are 4.7 x 1.8 x 2.9 cm. IMPRESSION: No evidence of intratesticular mass or testicular torsion. Small bilateral hydroceles. Decreased size of the cavity in the scrotal wall noted previously. <Electronically signed by Shabbir Castillo > 02/10/21 [id number]
[2021-02-10] MEDS: HYDROMORPHONE HCL 0.5 MG/ 0.5 ML SYRINGE (J1170 PER 1) IV PRN (10:36)
[2021-02-10] MEDS ORDERED: IBUPROFEN 400MG TAB PO PRN (11:10)
[2021-02-10] MEDS ORDERED: BOUDREAUX'S BUTT PASTE TOP PRN (11:25)
--- NOTE | 2021-02-10 11:54 | IPNPDOC ---
Date Seen The patient was seen on 02/10/21. Progress Note SUBJECTIVE: Patient is a 70-year-old male with status post I&D of a scrotal abscess, with reported diarrhea, and a new complaint of right testicular pain that began this morning. Patient states the pain began around 5 AM this morning when he got out of bed. He suddenly felt right sharp pain in his testicle that almost made him buckle over in pain. He describes the pain is annoying and constant but becomes sharp and severe at times. He said the Dilaudid helps with pain control some but still is experiences at sharp pain. He also ports that the diarrhea is better than yesterday but will still have breakthrough episodes with coughing and sneezing. He is able to make it to the toilet if he times his voids right. OBJECTIVE PHYSICAL EXAMINATION: VITAL SIGNS: Please see below. GENERAL: 70-year-old male, lying in bed, in mild distress due to testicular pain HEENT: Head normocephalic/atraumatic CARDIOVASCULAR: Regular rate and rhythm, no murmurs, rubs, no gallops. RESPIRATORY: Coarse inspiratory breath sounds with expiratory wheezes bilaterally. ABDOMINAL: Normoactive bowel sounds, nontender to palpation, nondistended EXTREMITIES: No lower extremity swelling appreciated Scrotum: I&D site absent of packing (patient thinks it probably fell out), reports tenderness to palpation on the left side but not as much on the right Anus: Erythematous due to amount of diarrhea and wiping, tender to palpation with sterile Q-tip applicator, unremarkable anal wink exam LABORATORY DATA, IMAGING STUDIES, MICROBIOLOGY: Please see below. Imaging: Scrotal ultrasound 02/10/2021: No evidence of intratesticular mass or testicular torsion. Small bilateral hydroceles. Decreased size of the cavity and scrotal wall noted previously. Pelvis CT with contrast 02/06/2021: Left inferior scrotum left perineum and left perianal abscess containing air bubbles and some fluid. There are 2 small reactive lymph nodes in the left inguinal soft tissues. No other significant finding. Scrotal ultrasound 02/06/2021: Possible scrotal wall/perineal abscess, 3.4 cm in greatest diameter. No intratesticular mass lesion is seen. No significant intrascrotal abnormality. Chest x-ray 02/06/2021: Emphysematous changes, without acute airspace disease Microbiology 02/07/21 Gastrointestinal Tract Panel (PCR) - Final, Complete 02/06/21 Gram Stain - Final, Complete 02/06/21 Abscess Culture - Final, Complete Staphylococcus Epidermidis 02/06/21 Anaerobic Culture, Received Pending 02/06/21 Blood Culture - Preliminary, Resulted No Growth after 72 hours. All specime... 02/06/21 Respiratory Virus Panel (PCR) ([facility]) - Final, Complete 02/06/21 Blood Culture - Preliminary, Resulted No Growth after 72 hours. All specime... DVT prophylaxis ordered?: Teds and sequentials ASSESSMENT AND PLAN: This is a 70-year-old male with status post I&D of a scrotal abscess, persistent but declining diarrhea, new onset right testicular pain. PROBLEMS: Scrotal wall abscess: -urology consulted, s/p I&D on 02/06 -Empiric piptazo (day 4). DC'd vanc now that he is MRSA negative and gram stain thus far showing GPCs in pairs and GNRs. -day 1 of Levaquin 750 mg daily and Flagyl 500 mg 3 times daily -Ensure that packing is changed with IV Dilaudid dose -Dr. Sun will be by again to examine patient today Right testicular pain -Stat ultrasound ordered and ruled out pathology such as testicular torsion -Patient is already receiving Dilaudid for severe pain and Tylenol for mild to moderate pain -Ibuprofen has been added for moderate pain Sepsis: 2/2 scrotal wall abscess, w/ leukocytosis, fever, tachycardia -s/p IVF -f/u BCx NGTD -UA negative -CXR was negative for infectious process -Levaquin and Flagyl have been started -Ensure that abscess remains packed Lactic acidosis i/s/o sepsis, resolved -s/p fluids DM: -holding home glipizide -Consistent carb diet -levemir 5u QHS for persistent hyperglycemia -SSI AC/HS -FSBG AC/HS HTN: -continue home ACEi HLD: - continue home simvastatin CAD: -s/p remote CABG Depression: -continue duloxetine Diarrhea: likely 2/2 antibiotics -dc'd IV vanc -GI panel -probiotic ACHS -Due to ongoing diarrhea patient was supplemented with IV potassium (3.4 this a.m.) and magnesium (1.7 this a.m.) -Metamucil and FiberCon have been added to encourage stool bulking -Zinc oxide paste has been ordered to help with irritation around anus -Cholestyramine will be added for further control if needed Pneumonia/deconditioning prophylaxis -Incentive spirometry ordered to encourage alveoli maximization prevention of atelectasis -PT eval was also placed and we welcome their recommendations DVT ppx: - c/w TEDs and SCDs VS, I&O, 24H, Fishbone Vital Signs/I&O Vital Signs Date Time Temp Pulse Resp B/P (MAP) Pulse Ox O2 Delivery O2 Flow Rate FiO2 02/10/21 10:36 18 Room Air 02/10/21 08:22 98 150/80 (103) 02/10/21 05:00 97.9 99 02/06/21 16:55 10.0 I&O- Last 24 Hours up to 6 AM 02/10/21 06:00 Intake Total 1470 ml Output Total 125 ml Balance 1345 ml Laboratory Data 24H LABS Laboratory Tests 2 02/09/21 17:11: Bedside Glucose (Misc Panel) 285H 02/09/21 20:53: Bedside Glucose (Misc Panel) 228H 02/10/21 05:23: Nucleated Red Blood Cells % (auto) 0.0, Anion Gap 5L, Glomerular Filtration Rate > 60.0, Calcium Level 8.6L, Magnesium Level 1.6L 02/10/21 11:32: Bedside Glucose (Misc Panel) 246H CBC/BMP Laboratory Tests 02/10/21 05:23 Microbiology Microbiology 02/07/21 Gastrointestinal Tract Panel (PCR) - Final, Complete 02/06/21 Gram Stain - Final, Complete 02/06/21 Abscess Culture - Final, Complete Staphylococcus Epidermidis 02/06/21 Anaerobic Culture, Received Pending 02/06/21 Blood Culture - Preliminary, Resulted No Growth after 72 hours. All specime... 02/06/21 Respiratory Virus Panel (PCR) ([facility]) - Final, Complete 02/06/21 Blood Culture - Preliminary, Resulted No Growth after 72 hours. All specime... GME ATTESTATION GME ATTESTATION My faculty preceptor for this patient encounter was physically present during the encounter and was fully available. All aspects of the patient interview, examination, medical decision making process, and medical care plan development were reviewed and approved by the faculty preceptor. The faculty preceptor is aware and concurs with the plan as stated in the body of this note and will attest to such by his/her cosignature. ATTENDING NOTE I, Carmelina Bowles, have independently examined this patient and performed my own physical exam, as well as reviewed the documentation and edited where necessary with the resident. For medical students we have performed the physical exam together and discussed medical decision making and I have verified the history. I have discussed in detail with the resident / student the findings and plan of treatment as documented by the resident / student and edited their note. I agree with their findings and treatment plan and have edited their documentation. I will continue to follow the patient during this hospital stay. Eladio Herrera DO Feb 10, 2021 11:54 CARMELINA BOWLES MD Feb 10, 2021 13:27
[2021-02-10] MEDS: METAMUCIL (PSYLLIUM) PACKET PO SCH (12:28)
[2021-02-10] MEDS: FIBER-CON 625 MG TAB PO SCH ×2 (12:29→20:58)
[2021-02-10] MEDS ORDERED: PERCOCET 5MG/325MG TAB PO PRN (13:25)
[2021-02-10] MEDS ORDERED: FLOM0.4C39 PO (13:41)
[2021-02-10] MEDS ORDERED: RISATAB3 PO (13:41)
[2021-02-10] MEDS ORDERED: LEVO750T13 PO (13:41)
[2021-02-10] MEDS ORDERED: PERCOCET PO (13:41)
[2021-02-10] MEDS ORDERED: META1POW PO (13:41)
[2021-02-10] MEDS ORDERED: LISI10TA22 PO (13:41)
[2021-02-10] MEDS ORDERED: FLAG500T PO (13:41)
[2021-02-10] MEDS ORDERED: FIBE62TA PO (13:42)
[2021-02-10 14:00] VITALS: BP 114/66
--- NOTE | 2021-02-10 16:40 | IPNPDOC ---
Date Seen The patient was seen on 02/10/21. Progress Note pt seen and examined lying in bed watching tv comfortable avss surgical field looks great, no new necrotic tissue, packing in place testes wnl labs noted, wbc and creatinine normal cx's noted home on Levaquin is fine, at least 2wk can be discharged from my standpoint Levaquin and pain medication hopefully visiting nurse can stop by 3x/wk for packing change if pt can change the packing, that would be great I'll see pt in my office in 10 days or so, he should call office [phone] for appt showering is fine but no bathing there are two openings large opening on scrotum leads to left groin the scrotum itself, except the wall, is not involved the other opening on the perineum leads straight in both areas are actually connected thank you [phone] VS, I&O, 24H, Cindy Vital Signs/I&O Vital Signs Date Time Temp Pulse Resp B/P (MAP) Pulse Ox O2 Delivery O2 Flow Rate FiO2 02/10/21 14:00 97.8 98 17 114/66 (82) 95 Room Air 02/06/21 16:55 10.0 I&O- Last 24 Hours up to 6 AM 02/10/21 06:00 Intake Total 1470 ml Output Total 125 ml Balance 1345 ml Laboratory Data 24H LABS Laboratory Tests 2 02/09/21 17:11: Bedside Glucose (Misc Panel) 285H 02/09/21 20:53: Bedside Glucose (Misc Panel) 228H 02/10/21 05:23: Nucleated Red Blood Cells % (auto) 0.0, Anion Gap 5L, Glomerular Filtration Rate > 60.0, Calcium Level 8.6L, Magnesium Level 1.6L 02/10/21 11:32: Bedside Glucose (Misc Panel) 246H CBC/BMP Laboratory Tests 02/10/21 05:23 Microbiology Microbiology 02/07/21 Gastrointestinal Tract Panel (PCR) - Final, Complete 02/06/21 Gram Stain - Final, Complete 02/06/21 Abscess Culture - Final, Complete Staphylococcus Epidermidis 02/06/21 Anaerobic Culture, Received Pending 02/06/21 Blood Culture - Preliminary, Resulted No Growth after 72 hours. All specime... 02/06/21 Respiratory Virus Panel (PCR) ([facility]) - Final, Complete 02/06/21 Blood Culture - Preliminary, Resulted No Growth after 72 hours. All specime... DEANDRE JOSEPH MD Feb 10, 2021 16:40
--- NOTE | 2021-02-10 16:48 | DS.PDOC ---
Discharge Summary General Date of Admission Feb 06, 2021 at 11:39 Date of Discharge Feb 10, 2021 Attending Physician: ROCKY BOWLES MD Discharge Summary PROCEDURES PERFORMED DURING STAY: Incision and drainage of a left testicular abscess. ADMITTING DIAGNOSES: 1. Scrotal wall abscess 2. Right testicular pain 3. Sepsis secondary to scrotal wall abscess with leukocytosis, fever, tachyca rdia 4. Lactic acidosis 9/8/0 sepsis, resolved 5. Diabetes mellitus 6. Hypertension 7. Hyperlipidemia 8. Coronary artery disease 9. Depression 10. Diarrhea 11. Pneumonia/deconditioning prophylaxis DISCHARGE DIAGNOSES: 1. Scrotal wall abscess status post incision and drainage 2. Right testicular pain 3. Sepsis secondary to scrotal wall abscess with leukocytosis, fever, tachycardia; resolved 4. Lactic acidosis 9/8/0 sepsis, resolved 5. Diabetes mellitus 6. Hypertension; controlled 7. Hyperlipidemia 8. Coronary artery disease 9. Depression 10. Diarrhea 11. Pneumonia/deconditioning prophylaxis COMPLICATIONS/CHIEF COMPLAINT: Perineal Abscess, Scrotal Abscess. HISTORY OF PRESENT ILLNESS: Patient is a 70-year-old male with a history of NIDDM, hypertension, hyperlipidemia, chronic back pain management smoking marijuana, coronary artery disease status post remote CABG, who developed nausea vomiting 4 days prior to admission. He then noticed a swelling in his inner left thigh that became painful over time. It turned purplish/black and grew in size and decided to come to the ER for work-up. While in the ED he was febrile with 100.2 F fever, hypertensive with SBP of 150s and reporting moderate pain. Physical examination revealed a hyperpigmented scrotal wall abscess. Labs were significant for leukocytosis of 19.5 with neutrophil predominance, scrotal ultrasound showed a scrotal wall/perineal abscess 3.4 cm in diameter without entry testicular masses. Urology was consulted from the ED and recommended admission and a pelvic CT. He was kept n.p.o. for drainage plans. HOSPITAL COURSE: 02/06/2021: Was started on empiric Vanco/piptazo given sepsis and MRSA history. Samples were drawn for cultures. Respiratory panel negative. I&D of scrotal abscess was performed by Dr. Skinner who provided nurses with instructions for wound care 02/07/2021: Patient reported improvement in pain after incision and drainage of his scrotal abscess. He started having diarrhea shortly after the procedure was done however. Vancomycin was discontinued because MRSA was negative and Gram stain was showing gram-positive cocci in pairs. Chest x-ray was negative for infectious processes. GI panel is negative. 02/08/2021: Patient still reported copious amounts of diarrhea. Would have episodes with coughing and sneezing. He also reported decreased appetite and nausea. Piptazo was continued. Pathology revealed squamous epithelium with submucosa edema and acute inflammation; negative for malignancy. 02/09/2021: Piptazo was continued (day 5). Still reporting having multiple episodes of diarrhea. Blood culture showed no growth after 72 hours. 02/10/2021: Gram stain finalized showing no cells seen, few gram-positive cocci in pairs, few gram-negative rods. Final abscess culture revealed few staph epidermidis. Patient reported improvement in diarrhea. DISCHARGE MEDICATIONS: Please see below. ALLERGIES: Please see below. PHYSICAL EXAMINATION ON DISCHARGE: VITAL SIGNS: Please see below. GENERAL: 70-year-old male, lying in bed, in mild distress due to testicular pain HEENT: Head normocephalic/atraumatic CARDIOVASCULAR: Regular rate and rhythm, no murmurs, rubs, no gallops. RESPIRATORY: Coarse inspiratory breath sounds with expiratory wheezes bilaterally. ABDOMINAL: Normoactive bowel sounds, nontender to palpation, nondistended EXTREMITIES: No lower extremity swelling appreciated Scrotum: I&D site absent of packing (patient thinks it probably fell out), reports tenderness to palpation on the left side but not as much on the right Anus: Erythematous due to amount of diarrhea and wiping, tender to palpation with sterile Q-tip applicator, unremarkable anal wink exam LABORATORY DATA: Please see below. IMAGING: Scrotal ultrasound 02/10/2021: No evidence of intratesticular mass or testicular torsion. Small bilateral hydroceles. Decreased size of the cavity and scrotal wall noted previously. Pelvis CT with contrast 02/06/2021: Left inferior scrotum left perineum and left perianal abscess containing air bubbles and some fluid. There are 2 small reactive lymph nodes in the left inguinal soft tissues. No other significant finding. Scrotal ultrasound 02/06/2021: Possible scrotal wall/perineal abscess, 3.4 cm in greatest diameter. No intratesticular mass lesion is seen. No significant intrascrotal abnormality. Chest x-ray 02/06/2021: Emphysematous changes, without acute airspace disease PROGNOSIS: Improving ACTIVITY: [As tolerated]. DIET: As tolerated DISPOSITION: Home DISCHARGE INSTRUCTIONS AND ITEMS TO FOLLOW-UP ON OUTPATIENT: Please follow up with PCP and Urology within 5 days. Please call to confirm / schedule appointment. Please comply with treatment plan and medications and return to the ER if you experience any problems. DISCHARGE CONDITION: [Stable]. TIME SPENT ON DISCHARGE: 35 minutes. Vital Signs/I&Os Vital Signs Date Time Temp Pulse Resp B/P (MAP) Pulse Ox O2 Delivery O2 Flow Rate FiO2 02/10/21 14:00 97.8 98 17 114/66 (82) 95 Room Air 02/06/21 16:55 10.0 I&O- Last 24 Hours up to 6 AM 02/10/21 06:00 Intake Total 1470 ml Output Total 125 ml Balance 1345 ml Laboratory Data Labs 24H Laboratory Tests 2 02/09/21 17:11: Bedside Glucose (Misc Panel) 285H 02/09/21 20:53: Bedside Glucose (Misc Panel) 228H 02/10/21 05:23: Nucleated Red Blood Cells % (auto) 0.0, Anion Gap 5L, Glomerular Filtration Rate > 60.0, Calcium Level 8.6L, Magnesium Level 1.6L 02/10/21 11:32: Bedside Glucose (Misc Panel) 246H CBC/BMP Laboratory Tests 02/10/21 05:23 FSBS Laboratory Tests Test 02/09/21 17:11 02/09/21 20:53 02/10/21 11:32 Range/Units Bedside Glucose (Misc Panel) 285 228 246 80-115 MG/DL Microbiology Microbiology 02/07/21 Gastrointestinal Tract Panel (PCR) - Final, Complete 02/06/21 Gram Stain - Final, Complete 02/06/21 Abscess Culture - Final, Complete Staphylococcus Epidermidis 02/06/21 Anaerobic Culture, Received Pending 02/06/21 Blood Culture - Preliminary, Resulted No Growth after 72 hours. All specime... 02/06/21 Respiratory Virus Panel (PCR) ([facility]) - Final, Complete 02/06/21 Blood Culture - Preliminary, Resulted No Growth after 72 hours. All specime... Discharge Medications Scheduled Calcium Polycarbophil (Fiber-Lax) 625 Mg Tablet, 1 EA PO BID Duloxetine Hcl (Duloxetine HCl) 60 Mg Capsule.dr, 60 MG PO DAILY, (Reported) Glipizide (Glipizide ER) 5 Mg Tab.er.24, 5 MG PO DAILY, (Reported) L.acidoph/L.bulg/B.bif/S.therm (Erum-Bid Caplet) 1 Each Tablet, 1 EA PO WMHS Levofloxacin (Levofloxacin) 750 Mg Tablet, 750 MG PO DAILY@06 Lisinopril (Lisinopril) 10 Mg Tablet, 10 MG PO DAILY Metronidazole (Flagyl) 500 Mg Tablet, 500 MG PO TID Psyllium Husk/Aspartame (Metamucil Fiber Singles Packet) 3.4 Gm Powd.pack, 1 PKT PO DAILY Simvastatin (Simvastatin) 40 Mg Tablet, 40 MG PO QHS, (Reported) Tamsulosin HCl (Flomax) 0.4 Mg Capsule, 0.4 MG PO BID Scheduled PRN Oxycodone/Acetaminophen (Oxycodone-Acetaminophen 5-325) 1 Each Tablet, 1 TAB PO Q6H PRN for MODERATE PAIN (PS 5-7) Allergies Coded Allergies: Tetracyclines (Verified Allergy, Mild, BLISTERS, 06/30/19) GME ATTESTATION GME ATTESTATION My faculty preceptor for this patient encounter was physically present during the encounter and was fully available. All aspects of the patient interview, examination, medical decision making process, and medical care plan development were reviewed and approved by the faculty preceptor. The faculty preceptor is aware and concurs with the plan as stated in the body of this note and will attest to such by his/her cosignature. Eladio Herrera DO Feb 10, 2021 16:48
[2021-02-10 20:08] VITALS: BP 104/79
[2021-02-10] MEDS: SIMVASTATIN 40 MG TAB PO SCH (20:58)
[2021-02-10] MEDS: PERCOCET 5MG/325MG TAB PO PRN (20:59)
[2021-02-10] MEDS: LEVEMIR (INSULIN DETEMIR) 1 UNITS/0.01ML SC SCH (21:01)
[2021-02-11] MEDS: PERCOCET 5MG/325MG TAB PO PRN ×2 (04:34→10:47)
[2021-02-11] MEDS: LevoFLOXacin 750 MG TABLET PO SCH (05:20)
[2021-02-11 06:00] VITALS: BP 102/70
[2021-02-11 06:02] LABS: HEMATOCRIT 37.6 % (42.0-52.0); HEMOGLOBIN 12.9 g/dl (13.5-17.5); MEAN CORPUSCULAR HEMOGLOBIN 29.9 pg (27.0-33.0); MEAN CORPUSCULAR HGB CONC 34.3 g/dl (32.0-36.5); PLATELET COUNT, AUTOMATED 323 10^3/uL (150-450); RED BLOOD COUNT 4.32 10^6/uL (4.30-6.10); WHITE BLOOD COUNT 8.7 10^3/uL (4.0-10.0)
[2021-02-11 06:24] LABS: BLOOD UREA NITROGEN 7 MG/DL (7-18); CALCIUM LEVEL 8.9 MG/DL (8.8-10.2); CARBON DIOXIDE LEVEL 29 MEQ/L (21-32); CHLORIDE LEVEL 105 MEQ/L (98-107); CREATININE FOR GFR 0.66 MG/DL (0.70-1.30); GLOMERULAR FILTRATION RATE > 60.0 (>49); GLUCOSE, FASTING 235 MG/DL (70-100); MAGNESIUM LEVEL 1.7 MG/DL (1.8-2.4); POTASSIUM SERUM 3.8 MEQ/L (3.5-5.1); SODIUM LEVEL 140 MEQ/L (136-145)
--- NOTE | 2021-02-11 07:35 | DS.PDOC ---
Discharge Summary General Date of Admission Feb 06, 2021 at 11:39 Date of Discharge Feb 11, 2021 Attending Physician: CARMELINA ROBERTS MD Specialist/Consultants Involve: DEANDRE SKINNER MD Discharge Summary PROCEDURES PERFORMED DURING STAY: Incision and drainage of a left testicular abscess. ADMITTING DIAGNOSES: 1. Scrotal wall abscess 2. Right testicular pain 3. Sepsis secondary to scrotal wall abscess with leukocytosis, fever, tachycardia 4. Lactic acidosis i/s/o sepsis, resolved 5. Diabetes mellitus 6. Hypertension 7. Hyperlipidemia 8. Coronary artery disease 9. Depression 10. Diarrhea 11. Pneumonia/deconditioning prophylaxis DISCHARGE DIAGNOSES: 1. Scrotal wall abscess status post incision and drainage 2. Right testicular pain 3. Sepsis secondary to scrotal wall abscess with leukocytosis, fever, tachycardia; resolved 4. Lactic acidosis i/s/o sepsis, resolved 5. Diabetes mellitus 6. Hypertension; controlled 7. Hyperlipidemia 8. Coronary artery disease 9. Depression 10. Diarrhea 11. Pneumonia/deconditioning prophylaxis COMPLICATIONS/CHIEF COMPLAINT: Perineal Abscess, Scrotal Abscess. HISTORY OF PRESENT ILLNESS: Patient is a 70-year-old male with a history of NIDDM, hypertension, hyperlipidemia, chronic back pain management smoking marijuana, coronary artery disease status post remote CABG, who developed nausea vomiting 4 days prior to admission. He then noticed a swelling in his inner left thigh that became painful over time. It turned purplish/black and grew in size and decided to come to the ER for work-up. While in the ED he was febrile with 100.2 F fever, hypertensive with SBP of 150s and reporting moderate pain. Physical examination revealed a hyperpigmented scrotal wall abscess. Labs were significant for leukocytosis of 19.5 with neutrophil predominance, scrotal ultrasound showed a scrotal wall/perineal abscess 3.4 cm in diameter without entry testicular masses. Urology was consulted from the ED and recommended ad mission and a pelvic CT. He was kept n.p.o. for drainage plans. HOSPITAL COURSE: 02/06/2021: Was started on empiric Vanco/piptazo given sepsis and MRSA history. Samples were drawn for cultures. Respiratory panel negative. I&D of scrotal abscess was performed by Dr. Skinner who provided nurses with instructions for wound care. 02/07/2021: Patient reported improvement in pain after incision and drainage of his scrotal abscess. He started having diarrhea shortly after the procedure was done ho wever. Vancomycin was discontinued because MRSA was negative and Gram stain was showing gram-positive cocci in pairs. Chest x-ray was negative for infectious processes. GI panel is negative. 02/08/2021: Patient still reported copious amounts of diarrhea. Would have episodes with coughing and sneezing. He also reported decreased appetite and nausea. Piptazo was continued. Pathology revealed squamous epithelium with submucosa edema and acute inflammation; negative for malignancy. 02/09/2021: Piptazo was continued (day 5). Still reporting having multiple episodes of diarrhea. Blood culture showed no growth after 72 hours. 02/10/2021: Gram stain finalized showing no cells seen, few gram-positive cocci in pairs, few gram-negative rods. Final abscess culture revealed few staph epidermidis. Patient reported improvement in diarrhea. Discharge was planned for today but home health cannot be organized the patient stayed another night. Dr. Skinner has cleared patient to be discharged. He is to continue Levaquin and pain medication. He would like visiting nurse to stop by at least 3 times a week to change the packing, or have patient change back to me if he is able to do so. He should schedule an appointment with him for follow-up. Showering is fine but no bathing. 02/11/2021: IV magnesium given due to low level this morning. Patient to be discharged home with home health and instructed to follow-up with urology. Pain medications of had improvement of his pain around incision site DISCHARGE MEDICATIONS: Please see below. ALLERGIES: Please see below. PHYSICAL EXAMINATION ON DISCHARGE: VITAL SIGNS: Please see below. GENERAL: 70-year-old male, lying in bed, in mild distress due to testicular pain HEENT: Head normocephalic/atraumatic, eyes EOMI PERRLA CARDIOVASCULAR: Regular rate and rhythm (audible S4), no murmurs, rubs, no gallops. RESPIRATORY: Coarse inspiratory breath sounds with expiratory wheezes bilaterally. ABDOMINAL: Normoactive bowel sounds, nontender to palpation, nondistended EXTREMITIES: No lower extremity swelling appreciated Scrotum: I&D site absent of packing in the posterior scrotal I&D site (patient thinks it probably fell out), reports tenderness to palpation; blood-tinged drainage on briefs from I&D site LABORATORY DATA: Please see below. IMAGING: Scrotal ultrasound 02/10/2021: No evidence of intratesticular mass or testicular torsion. Small bilateral hydroceles. Decreased size of the cavity and scrotal wall noted previously. Pelvis CT with contrast 02/06/2021: Left inferior scrotum left perineum and left perianal abscess containing air bubbles and some fluid. There are 2 small reactive lymph nodes in the left inguinal soft tissues. No other significant finding. Scrotal ultrasound 02/06/2021: Possible scrotal wall/perineal abscess, 3.4 cm in greatest diameter. No intratesticular mass lesion is seen. No significant intrascrotal abnormality. Chest x-ray 02/06/2021: Emphysematous changes, without acute airspace disease PROGNOSIS: Improving ACTIVITY: [As tolerated]. DIET: As tolerated DISPOSITION: Home DISCHARGE INSTRUCTIONS AND ITEMS TO FOLLOW-UP ON OUTPATIENT: Please follow up with PCP and Urology within 5 days. Please call to confirm / schedule appointment with Dr. Skinner ([phone]). Take antibiotics and other medications as directed Showering is fine, but NO bathing. Please comply with treatment plan and medications and return to the ER if you experience any problems. DISCHARGE CONDITION: [Stable]. TIME SPENT ON DISCHARGE: 35 minutes. Vital Signs/I&Os Vital Signs Date Time Temp Pulse Resp B/P (MAP) Pulse Ox O2 Delivery O2 Flow Rate FiO2 02/11/21 06:00 97.5 74 18 102/70 (81) 97 Room Air 02/06/21 16:55 10.0 I&O- Last 24 Hours up to 6 AM 02/11/21 06:00 Intake Total 1400 ml Output Total 100 ml Balance 1300 ml Laboratory Data Labs 24H Laboratory Tests 2 02/10/21 11:32: Bedside Glucose (Misc Panel) 246H 02/10/21 17:38: Bedside Glucose (Misc Panel) 299H 02/10/21 20:24: Bedside Glucose (Misc Panel) 258H 02/11/21 05:32: Nucleated Red Blood Cells % (auto) 0.0, Anion Gap 6L, Glomerular Filtration Rate > 60.0, Calcium Level 8.9, Magnesium Level 1.7L CBC/BMP Laboratory Tests 02/11/21 05:32 FSBS Laboratory Tests Test 02/10/21 11:32 02/10/21 17:38 02/10/21 20:24 Range/Units Bedside Glucose (Misc Panel) 246 299 258 80-115 MG/DL Microbiology Microbiology 02/07/21 Gastrointestinal Tract Panel (PCR) - Final, Complete 02/06/21 Gram Stain - Final, Complete 02/06/21 Abscess Culture - Final, Complete Staphylococcus Epidermidis 02/06/21 Anaerobic Culture, Received Pending 02/06/21 Blood Culture - Preliminary, Resulted No Growth after 72 hours. All specime... 02/06/21 Respiratory Virus Panel (PCR) ([facility]) - Final, Complete 02/06/21 Blood Culture - Preliminary, Resulted No Growth after 72 hours. All specime... Discharge Medications Scheduled Calcium Polycarbophil (Fiber-Lax) 625 Mg Tablet, 1 EA PO BID Duloxetine Hcl (Duloxetine HCl) 60 Mg Capsule.dr, 60 MG PO DAILY, (Reported) Glipizide (Glipizide ER) 5 Mg Tab.er.24, 5 MG PO DAILY, (Reported) L.acidoph/L.bulg/B.bif/S.therm (Erum-Bid Caplet) 1 Each Tablet, 1 EA PO WMHS Levofloxacin (Levofloxacin) 750 Mg Tablet, 750 MG PO DAILY@06 Lisinopril (Lisinopril) 10 Mg Tablet, 10 MG PO DAILY Metronidazole (Flagyl) 500 Mg Tablet, 500 MG PO TID Psyllium Husk/Aspartame (Metamucil Fiber Singles Packet) 3.4 Gm Powd.pack, 1 PKT PO DAILY Simvastatin (Simvastatin) 40 Mg Tablet, 40 MG PO QHS, (Reported) Tamsulosin HCl (Flomax) 0.4 Mg Capsule, 0.4 MG PO BID Scheduled PRN Oxycodone/Acetaminophen (Oxycodone-Acetaminophen 5-325) 1 Each Tablet, 1 TAB PO Q6H PRN for MODERATE PAIN (PS 5-7) Allergies Coded Allergies: Tetracyclines (Verified Allergy, Mild, BLISTERS, 06/30/19) GME ATTESTATION GME ATTESTATION My faculty preceptor for this patient encounter was physically present during the encounter and was fully available. All aspects of the patient interview, examination, medical decision making process, and medical care plan development were reviewed and approved by the faculty preceptor. The faculty preceptor is aware and concurs with the plan as stated in the body of this note and will attest to such by his/her cosignature. ATTENDING NOTE I, Carmelina Roberts, have independently examined this patient and performed my own physical exam, as well as reviewed the documentation and edited where necessary with the resident. For medical students we have performed the physical exam together and discussed medical decision making and I have verified the history. I have discussed in detail with the resident / student the findings and plan of treatment as documented by the resident / student and edited their note. I agree with their findings and treatment plan and have edited their documentation. I will continue to follow the patient during this hospital stay. Time spent on discharge 35 minutes Deandre Herrera DO Feb 11, 2021 07:35 CARMELINA ROBERTS MD Feb 11, 2021 12:54
[2021-02-11 08:00] VITALS: BP 152/78
[2021-02-11] MEDS: LACTOBACILLUS ACIDOPHILUS CAP (BACID) PO SCH (08:13)
[2021-02-11] MEDS: HumaLOG INSULIN (NovoLOG) PER UNIT SC SCH (08:14)
[2021-02-11] MEDS: MAG SULF 1GM/100ML (MAG RUN) 1 GM in IV 1 EA IV SCH ×2 (08:15→09:26)
[2021-02-11] MEDS: ACETAMINOPHEN TAB 650MG DOSE (2X325MG) PO PRN (08:27)
[2021-02-11] MEDS: METAMUCIL (PSYLLIUM) PACKET PO SCH (09:12)
[2021-02-11 09:13] VITALS: BP 152/78
[2021-02-11] MEDS: TAMSULOSIN 0.4 MG CAP PO SCH (09:13)
[2021-02-11] MEDS: metroNIDAZOLE (FLAGYL) 500MG TABLET PO SCH (09:13)
[2021-02-11] MEDS: FIBER-CON 625 MG TAB PO SCH (09:13)
[2021-02-11] MEDS: DULoxetine 30MG CAPSULE (CYMBALTA) PO SCH (09:13)
--- NOTE | 2021-02-22 11:14 | ROOPDOC ---
[facility] Report Of Operation Report of Operation DATE OF PROCEDURE: 02/06/21 PREPROCEDURE DIAGNOSES: [Scrotal and perineal abscess]. POSTPROCEDURE DIAGNOSES: [Same]. PROCEDURE PERFORMED: [Incision and drainage of scrotal and perineal abscess, excision of necrotic tissue]. SURGEON: [Donovan Joseph MD [employer] DRIVER: [None], ANESTHESIA: [General endotracheal]. ESTIMATED BLOOD LOSS: Approximately [10] mL. COMPLICATIONS: [None]. REMARKS: [70-year-old white male. Presented to the emergency room with a scrotal and perineal abscess. Patient examined. CT was done and reviewed. Decision made to operate after discussion with patient. Incision and drainage was needed. As well, excision of necrotic scrotal wall was needed. Informed consent obtained. Risks discussed such as infection, bleeding, pain, scarring, injury to normal tissues, risks of anesthesia and others. I explained to patient that all tissue was going to be removed. I answered his questions. He wished to proceed.]. FINDINGS: SPECIMENS REMOVED: [Necrotic scrotal wall] PROCEDURE NOTE: . DESCRIPTION OF PROCEDURE: [Surgery was done under antimicrobial coverage. Patient was brought to the operating room. General anesthesia was secured without difficulty. Dorsolithotomy position. Well-padded. Patient examined. Dusky left scrotal wall. Prepped and draped in sterile fashion. An incision was made through the dusky scrotal wall. Purulent drainage was encountered. Cultures were taken both aerobic and anaerobic. Loculations were broken up using blunt dissection. The abscess involved the scrotal wall but not the left hemiscrotal contents. Testes and cords not involved. Necrotic scrotal wall tissue was excised. The perineum was then inspected. There was fullness to the perineum. An incision was made longitudinally and carried down with cautery. Soon more purulent drainage was encountered. Again loculations were broken up using blunt dissection. Both areas were copiously irrigated. The 2 areas were found to be connected. With a finger through the scrotal wall defect I could reach the perineal incision. The scrotal wall defect and perineal incision were separate. The rectum was not involved. I did a digital rectal examination. Both areas required excision of necrotic tissue. The scrotal area required more excision than the perineal area. Once satisfied the defects were packed with Kerlix. 2 separate packings were used. The scrotal wall defect was loosely closed with Prolene stitches. This ended the surgery. Counts were correct. Patient tolerated everything well and left the room in satisfactory condition. Necrotic tissue was sent to pathology.]. DEANDRE JOSEPH MD Feb 22, 2021 11:14
== END 2021-02-11 12:07 | disposition home health service (06) | DRG 854 ==
LOC: M ED 05:28 → M ED INP 11:39 → ENRESERV 13:26 → M MSPAV 17:45
PROVIDERS: ADMIT Internal Medicine; ATTEND Internal Medicine
PROC: 0WBM0ZZ Excision of Male Perineum, Open Approach (ICD-10-PCS; 2021-02-06)
PROC: 0VB50ZZ Excision of Scrotum, Open Approach (ICD-10-PCS; principal; 2021-02-06 13:29)
DX: A41.9 Sepsis, unspecified organism (principal); E87.2 Acidosis; K52.1 Toxic gastroenteritis and colitis; L02.215 Cutaneous abscess of perineum; N49.2 Inflammatory disorders of scrotum; E11.9 Type 2 diabetes mellitus without complications; I10 Essential (primary) hypertension; E78.5 Hyperlipidemia, unspecified; I25.10 Atherosclerotic heart disease of native coronary artery without angina pectoris; R15.9 Full incontinence of feces; F32.9 Major depressive disorder, single episode, unspecified; N50.811 Right testicular pain; Z95.1 Presence of aortocoronary bypass graft; Z86.14 Personal history of Methicillin resistant Staphylococcus aureus infection; Z98.41 Cataract extraction status, right eye; Z98.42 Cataract extraction status, left eye; M54.9 Dorsalgia, unspecified; Z79.84 Long term (current) use of oral hypoglycemic drugs; Z79.899 Other long term (current) drug therapy; Z88.8 Allergy status to other drugs, medicaments and biological substances; T36.8X5A Adverse effect of other systemic antibiotics, initial encounter; B95.8 Unspecified staphylococcus as the cause of diseases classified elsewhere

== ENCOUNTER 2021-02-16 10:50 | Emergency (ER) | payer OTHER ==
[~2021-02-16 10:50] MED LIST changes: +DULO1CAP6 PO; +FIBE62TA PO; +FLAG500T PO; +FLOM0.4C39 PO; +GLIP5TAB20 PO; +LEVO750T13 PO; +LISI-898 PO; +LISI10TA22 PO; +MED REC COMMENT; +META1POW PO; +PERCOCET PO; +RISATAB3 PO; +SIMV40TA20 PO
--- NOTE | 2021-02-16 14:13 | REP ---
INDICATION: SOB COMPARISON: 02/06/2021 as well as other prior exams. TECHNIQUE: PA/Lateral FINDINGS: Lungs: Clear, no infiltrate. Heart: Normal in size. Mediastinum: Mediastinal silhouette unremarkable. Pleural angles: Unremarkable.. Bones and soft tissues: Unremarkable. Multiple sternal wires mediastinal clips are present. IMPRESSION: No acute pulmonary disease. <Electronically signed by Jerod Washington > 02/16/21 [id number]
[2021-02-16 14:47] LABS: BASO # 0.1 10^3/uL (0.0-0.2); BASO % 0.5 % (0.0-1.0); EOS % 0.3 % (0.0-3.0); HEMATOCRIT 46.1 % (42.0-52.0); HEMOGLOBIN 15.4 g/dl (13.5-17.5); LYMPH # 1.6 10^3/uL (1.5-5.0); LYMPH % 14.6 % (24.0-44.0); MEAN CORPUSCULAR HEMOGLOBIN 29.7 pg (27.0-33.0); MEAN CORPUSCULAR HGB CONC 33.4 g/dl (32.0-36.5); MONO # 0.5 10^3/uL (0.0-0.8); MONO % 4.7 % (2.0-8.0); NEUTROPHILS # 8.7 10^3/uL (1.5-8.5); NEUTROPHILS % 78.7 % (36.0-66.0); PLATELET COUNT, AUTOMATED 406 10^3/uL (150-450); RED BLOOD COUNT 5.18 10^6/uL (4.30-6.10)
[2021-02-16] MEDS ORDERED: ONDANSETRON 4MG/2ML VIAL IV ONE (15:25)
[2021-02-16 15:44] LABS: ALBUMIN 2.9 GM/DL (3.2-5.2); ALT/SGPT 33 U/L (12-78); BILIRUBIN,DIRECT 0.1 MG/DL (0.0-0.2); BILIRUBIN,TOTAL 0.3 MG/DL (0.2-1.0); BLOOD UREA NITROGEN 11 MG/DL (7-18); CALCIUM LEVEL 9.6 MG/DL (8.8-10.2); CARBON DIOXIDE LEVEL 25 MEQ/L (21-32); CHLORIDE LEVEL 104 MEQ/L (98-107); CK-MB VALUE MASS 3.6 NG/ML (<3.6); CPK CREATINE PHOSPHOKINASE 142 U/L (39-308); CREATININE FOR GFR 0.86 MG/DL (0.70-1.30); FREE T4 1.44 NG/DL (0.76-1.46); GLOMERULAR FILTRATION RATE > 60.0 (>49); GLUCOSE, FASTING 276 MG/DL (70-100); LIPASE 56 U/L (73-393); MB/CK RELATIVE INDEX 2.54 (< OR =4); NT-PRO BNP 3836 PG/ML (<125); POTASSIUM SERUM 4.7 MEQ/L (3.5-5.1); SODIUM LEVEL 136 MEQ/L (136-145); TOTAL PROTEIN 6.7 GM/DL (6.4-8.2); TROPONIN I 0.02 NG/ML (< 0.10)
[2021-02-16] MEDS ORDERED: ISOVUE-370 76% 100ML VIAL As Ordered ONE (16:00)
--- NOTE | 2021-02-16 16:42 | REP ---
INDICATION: R chest pain, sob COMPARISON: None. TECHNIQUE: CT angiography of the chest attention pulmonary arteries after the intravenous administration of 75 cc Isovue 370. FINDINGS: There is diffuse respiratory motion artifact which obscures the detail, however, there is adequate visualization of the pulmonary arterial vasculature. No focal filling defects are present that would be considered consistent with acute pulmonary emboli. There is no mediastinal or hilar adenopathy. There are no pleural or pericardial effusions. The imaged upper abdomen and imaged osseous structures are within normal limits. Evaluation of the lung mclain shows an incidental calcified granuloma in the right lower lobe. Respiratory motion artifact does obscure the detail to a degree that a small pulmonary nodule could be obscured. There are no spiculated lesions or significant patchy parenchymal opacities. IMPRESSION: 1. The exam is limited, as described above, however there is no evidence of an acute pulmonary embolus. 2. No evidence of an acute pulmonary parenchymal process as described above. 3. Other findings as described above. <Electronically signed by Kwasi Solis > 02/16/21 [id number]
[2021-02-16 17:35] VITALS: O2SAT 96
[2021-02-16 18:07] LABS: MB/CK RELATIVE INDEX 2.46 (< OR =4); TROPONIN I 0.02 NG/ML (< 0.10)
[2021-02-16 19:18] VITALS: BP 164/102
--- NOTE | 2021-02-16 21:58 | ECGEPIP ---
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
--- NOTE | 2021-02-16 22:11 | ECGEPIP ---
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
== END 2021-02-16 19:26 | disposition home or self-care (01) ==
LOC: M ED 10:50 → EDBD 10:50 → M ED 19:26
DX: R06.02 Shortness of breath (principal); R07.9 Chest pain, unspecified; R05.9 Cough, unspecified; N49.2 Inflammatory disorders of scrotum; I45.10 Unspecified right bundle-branch block; R00.0 Tachycardia, unspecified; E11.9 Type 2 diabetes mellitus without complications; E78.9 Disorder of lipoprotein metabolism, unspecified; M54.9 Dorsalgia, unspecified; I25.10 Atherosclerotic heart disease of native coronary artery without angina pectoris; I10 Essential (primary) hypertension; Z95.1 Presence of aortocoronary bypass graft; F17.200 Nicotine dependence, unspecified, uncomplicated; Z88.1 Allergy status to other antibiotic agents; Z79.899 Other long term (current) drug therapy; Z79.891 Long term (current) use of opiate analgesic; Z79.2 Long term (current) use of antibiotics
CPT/HCPCS: 71046; 71275; 80048; 80076; 82550; 82553; 83690; 83880; 84439; 84443; 84484; 85025; 87798; 93005; 93041; 94760; 96374; 99285; J2405; Q9967

== ENCOUNTER → 2021-03-05 | Outpatient (REF) | payer OTHER ==
[~2021-03-05] MED LIST changes: -LISI-898 PO; +LISI5TAB11 PO
== END ==
LOC: M SMT 17:30
PROVIDERS: ATTEND Urology
DX: N49.2 Inflammatory disorders of scrotum (principal)
CPT/HCPCS: 87070; 87077; G0463

== ENCOUNTER 2021-07-24 00:41 | Emergency (ER) | payer OTHER ==
[~2021-07-24] VITALS: Ht 177.8 cm; Wt 94.8 kg
[2021-07-24 00:52] VITALS: BP 150/70
== END 2021-07-24 02:09 | disposition left against medical advice (07) ==
LOC: M ED 00:41
DX: Z53.21 Procedure and treatment not carried out due to patient leaving prior to being seen by health care provider (principal)

== ENCOUNTER → 2021-09-17 | Outpatient (CLI) | payer OTHER ==
[2021-09-17 09:37] LABS: BASO % 0.4 % (0.0-1.0); EOS # 0.2 10^3/uL (0.0-0.5); EOS % 2.2 % (0.0-3.0); HEMATOCRIT 49.8 % (42.0-52.0); LYMPH # 2.3 10^3/uL (1.5-5.0); LYMPH % 21.1 % (24.0-44.0); MEAN CORPUSCULAR HEMOGLOBIN 29.5 pg (27.0-33.0); MEAN CORPUSCULAR HGB CONC 34.1 g/dl (32.0-36.5); MEAN CORPUSCULAR VOLUME 86.5 fl (80.0-96.0); MONO # 0.7 10^3/uL (0.0-0.8); MONO % 6.5 % (2.0-8.0); NEUTROPHILS # 7.6 10^3/uL (1.5-8.5); NEUTROPHILS % 69.3 % (36.0-66.0); PLATELET COUNT, AUTOMATED 351 10^3/uL (150-450); RED BLOOD COUNT 5.76 10^6/uL (4.30-6.10)
[2021-09-17 10:00] LABS: ALBUMIN 4.1 GM/DL (3.2-5.2); ALT/SGPT 28 U/L (12-78); AMYLASE 50 U/L (25-115); BILIRUBIN,TOTAL 0.6 MG/DL (0.2-1.0); BLOOD UREA NITROGEN 15 MG/DL (7-18); CALCIUM LEVEL 10.6 MG/DL (8.8-10.2); CARBON DIOXIDE LEVEL 30 MEQ/L (21-32); CHLORIDE LEVEL 100 MEQ/L (98-107); CREATININE FOR GFR 1.09 MG/DL (0.70-1.30); GLOMERULAR FILTRATION RATE > 60.0 (>49); GLUCOSE, FASTING 227 MG/DL (70-100); LIPASE 408 U/L (73-393); POTASSIUM SERUM 5.1 MEQ/L (3.5-5.1); SODIUM LEVEL 135 MEQ/L (136-145); TOTAL PROTEIN 7.6 GM/DL (6.4-8.2)
[2021-09-17 11:24] LABS: HEMOGLOBIN A1c 8.9 %
== END ==
LOC: M LAB 08:19
PROVIDERS: ATTEND Family Medicine
DX: R11.2 Nausea with vomiting, unspecified (principal)

== ENCOUNTER → 2021-09-28 | Outpatient (CLI) | payer MEDICARE, OTHER, SELFPAY ==
[~2021-09-28] MED LIST changes: +E-Z-GAS II EFFERVESCENT PACKET (SODIUM BICARB./CITRIC ACID/SIMETHICONE) As Ordered ONE; +E-Z-HD 98% w/w 340GM SUSP BTL As Ordered ONE; +E-Z-PAQUE 96% w/w SUSP 176GM BTL As Ordered ONE
== END ==
LOC: M RAD 07:11
PROVIDERS: ATTEND Family Medicine
DX: R11.2 Nausea with vomiting, unspecified (principal)

== ENCOUNTER → 2022-03-14 | Outpatient (CLI) | payer MEDICARE ==
[~2022-03-14] MED LIST changes: -E-Z-GAS II EFFERVESCENT PACKET (SODIUM BICARB./CITRIC ACID/SIMETHICONE) As Ordered ONE; -E-Z-HD 98% w/w 340GM SUSP BTL As Ordered ONE; -E-Z-PAQUE 96% w/w SUSP 176GM BTL As Ordered ONE; +LEVO1TAB40 PO; -LEVO750T13 PO
== END ==
LOC: M RAD 11:02
PROVIDERS: ATTEND Podiatrist Foot & Ankle Surgery
DX: I73.9 Peripheral vascular disease, unspecified (principal)

== ENCOUNTER → 2022-04-12 | Outpatient (POV) | payer MEDICARE ==
[~2022-04-12] VITALS: Ht 177.8 cm; Wt 90.9 kg
[2022-04-12 10:10] VITALS: BP 163/74
== END ==
LOC: M IRPOV 09:44
PROVIDERS: ATTEND Radiology Diagnostic Radiology
DX: E11.622 Type 2 diabetes mellitus with other skin ulcer (principal); L97.529 Non-pressure chronic ulcer of other part of left foot with unspecified severity; I10 Essential (primary) hypertension; E78.5 Hyperlipidemia, unspecified; I25.10 Atherosclerotic heart disease of native coronary artery without angina pectoris; Z88.1 Allergy status to other antibiotic agents; Z79.899 Other long term (current) drug therapy; Z79.82 Long term (current) use of aspirin

== ENCOUNTER → 2022-05-10 | Outpatient (POV) | payer MEDICARE ==
[~2022-05-10] VITALS: Ht 177.8 cm; Wt 90.0 kg
[~2022-05-10] MED LIST changes: +ASPI81TA26 PO
[2022-05-10 13:35] VITALS: BP 156/72
== END ==
LOC: M IRPOV 13:30
PROVIDERS: ATTEND Radiology Diagnostic Radiology
DX: Z01.89 Encounter for other specified special examinations (principal)

== ENCOUNTER → 2022-05-12 | Outpatient (CLI) | payer MEDICARE | LOC: M LABSMTC 10:41 | PROVIDERS: ATTEND Anesthesiology | DX: Z01.818 Encounter for other preprocedural examination (principal); Z11.52 Encounter for screening for COVID-19 ==

== ENCOUNTER → 2022-05-16 | Outpatient (CLI) | payer MEDICARE ==
[~2022-05-16] MED LIST changes: +HEPARIN 1,000UNITS/ML 10ML VIAL (FOR RADIOLOGY & DIALYSIS ONLY) As Ordered ONE; +ISOVUE-300 61% 50ML VIAL As Ordered ONE; +LIDOCAINE 1% MDV 20ML VIAL As Ordered ONE; +METF500T13 PO; +MIDAZOLAM INJ 2MG/2ML VIAL As Ordered ONE; +NS 1,000 ML IV SCH; +ONDANSETRON 4MG 2ML VIAL As Ordered ONE; +ONDANSETRON 4MG 2ML VIAL IV PRN; +diphenhydrAMINE 50MG/ML VIAL As Ordered ONE; +fentaNYL 100 MCG/2 ML INJECTION As Ordered ONE
[2022-05-16 08:15] LABS: BLOOD UREA NITROGEN 30 MG/DL (9-23); CALCIUM LEVEL 9.7 MG/DL (8.3-10.6); CARBON DIOXIDE LEVEL 25 MMOL/L (20-31); CHLORIDE LEVEL 103 MMOL/L (98-107); CREATININE FOR GFR 0.98 MG/DL (0.70-1.30); GLOMERULAR FILTRATION RATE > 60.0 (>42); GLUCOSE, FASTING 221 MG/DL (74-106); SODIUM LEVEL 137 MMOL/L (136-145)
[2022-05-16 08:20] LABS: INR 0.9; PROTHROMBIN TIME 12.3 SECONDS (12.5-14.5)
[2022-05-16 15:15] VITALS: BP 169/80
== END ==
LOC: M IRPRO 06:20
PROVIDERS: ATTEND Radiology Diagnostic Radiology
DX: I70.249 Atherosclerosis of native arteries of left leg with ulceration of unspecified site (principal); L97.929 Non-pressure chronic ulcer of unspecified part of left lower leg with unspecified severity; Z79.82 Long term (current) use of aspirin; Z79.84 Long term (current) use of oral hypoglycemic drugs; Z88.1 Allergy status to other antibiotic agents
CPT/HCPCS: 36200; 75630; 80048; 85610; 99152; 99153; C1769; C1887; C1894; J2405; Q9967

== ENCOUNTER → 2022-05-31 | Outpatient (POV) | payer MEDICARE ==
[~2022-05-31] VITALS: Ht 177.8 cm; Wt 90.9 kg
[~2022-05-31] MED LIST changes: -HEPARIN 1,000UNITS/ML 10ML VIAL (FOR RADIOLOGY & DIALYSIS ONLY) As Ordered ONE; -ISOVUE-300 61% 50ML VIAL As Ordered ONE; -LIDOCAINE 1% MDV 20ML VIAL As Ordered ONE; -MIDAZOLAM INJ 2MG/2ML VIAL As Ordered ONE; -NS 1,000 ML IV SCH; -ONDANSETRON 4MG 2ML VIAL As Ordered ONE; -ONDANSETRON 4MG 2ML VIAL IV PRN; -diphenhydrAMINE 50MG/ML VIAL As Ordered ONE; -fentaNYL 100 MCG/2 ML INJECTION As Ordered ONE
[2022-05-31 14:55] VITALS: BP 147/68
== END ==
LOC: M IRPOV 14:36
PROVIDERS: ATTEND Radiology Diagnostic Radiology
DX: Z48.812 Encounter for surgical aftercare following surgery on the circulatory system (principal); I70.292 Other atherosclerosis of native arteries of extremities, left leg; Z88.1 Allergy status to other antibiotic agents

== ENCOUNTER → 2022-06-16 | Outpatient (CLI) | payer MEDICARE | LOC: M LABSMTC 09:20 | PROVIDERS: ATTEND Anesthesiology | DX: Z01.812 Encounter for preprocedural laboratory examination (principal); Z20.822 Contact with and (suspected) exposure to COVID-19 ==

== ENCOUNTER → 2022-06-20 | Outpatient (CLI) | payer MEDICARE ==
[~2022-06-20] MED LIST changes: +HEPARIN 1,000UNITS/ML 10ML VIAL (FOR RADIOLOGY & DIALYSIS ONLY) As Ordered ONE; +ISOVUE-300 61% 100ML VIAL As Ordered ONE; +LIDOCAINE 1% MDV 20ML VIAL As Ordered ONE; +MIDAZOLAM INJ 2MG/2ML VIAL As Ordered ONE; +NS 1,000 ML IV SCH; +diphenhydrAMINE 50MG/ML VIAL As Ordered ONE; +fentaNYL 100 MCG/2 ML INJECTION As Ordered ONE
[2022-06-20 08:03] LABS: HEMATOCRIT 42.2 % (42.0-52.0); HEMOGLOBIN 13.8 g/dl (13.5-17.5); MEAN CORPUSCULAR HEMOGLOBIN 29.4 pg (27.0-33.0); MEAN CORPUSCULAR HGB CONC 32.7 g/dl (32.0-36.5); PLATELET COUNT, AUTOMATED 341 10^3/uL (150-450); RED BLOOD COUNT 4.69 10^6/uL (4.30-6.10); WHITE BLOOD COUNT 12.2 10^3/uL (4.0-10.0)
[2022-06-20 16:00] VITALS: BP 120/60
== END ==
LOC: M IRPRO 06:37
PROVIDERS: ATTEND Radiology Diagnostic Radiology
DX: I70.249 Atherosclerosis of native arteries of left leg with ulceration of unspecified site (principal); L97.929 Non-pressure chronic ulcer of unspecified part of left lower leg with unspecified severity
CPT/HCPCS: 37224; 85027; 99152; 99153; C1725; C1769; C1887; C1894; J1200; J2250; J3010; Q9967

== ENCOUNTER 2022-07-05 10:18 | Inpatient (IN) | payer MEDICARE ==
[~2022-07-05] VITALS: Ht 177.8 cm; Wt 97.0 kg
[~2022-07-05 10:18] MED LIST changes: -HEPARIN 1,000UNITS/ML 10ML VIAL (FOR RADIOLOGY & DIALYSIS ONLY) As Ordered ONE; -ISOVUE-300 61% 100ML VIAL As Ordered ONE; -LIDOCAINE 1% MDV 20ML VIAL As Ordered ONE; -MIDAZOLAM INJ 2MG/2ML VIAL As Ordered ONE; -NS 1,000 ML IV SCH; -diphenhydrAMINE 50MG/ML VIAL As Ordered ONE; -fentaNYL 100 MCG/2 ML INJECTION As Ordered ONE
[2022-07-05 11:38] VITALS: BP 147/83
[2022-07-05] MEDS ORDERED: DEXTROSE 50% 50ML SYRINGE IV PRN (12:20)
[2022-07-05] MEDS ORDERED: GLUCAGON INJ 1MG VIAL SC PRN (12:20)
[2022-07-05] MEDS ORDERED: GLUCOSE 4GM CHEW TABLET PO PRN (12:20)
[2022-07-05 13:07] LABS: HEMATOCRIT 40.2 % (42.0-52.0); HEMOGLOBIN 12.9 g/dl (13.5-17.5); MEAN CORPUSCULAR HEMOGLOBIN 28.7 pg (27.0-33.0); MEAN CORPUSCULAR HGB CONC 32.1 g/dl (32.0-36.5); MEAN CORPUSCULAR VOLUME 89.3 fl (80.0-96.0); PLATELET COUNT, AUTOMATED 365 10^3/uL (150-450); WHITE BLOOD COUNT 13.1 10^3/uL (4.0-10.0)
[2022-07-05 13:22] LABS: INR 0.95; PROTHROMBIN TIME 12.9 SECONDS (12.5-14.5)
[2022-07-05 13:26] LABS: ERYTHROCYTE SEDIMENTATION RATE 107 mm/hr (0-20)
[2022-07-05] MEDS: MORPHINE 4 MG/ML 1ML VIAL IV PRN ×2 (13:35→18:08)
[2022-07-05] MEDS: PIPERACILLIN/TAZOBACTAM SOD 4.5 GM in D5W MINI-BAG PLUS 50 ML IV SCH ×2 (13:35→18:09)
[2022-07-05] MEDS ORDERED: AMIT25TA17 PO (13:40)
[2022-07-05] MEDS ORDERED: JARD1TAB PO (13:40)
[2022-07-05] MEDS ORDERED: ATEN25TA PO (13:40)
[2022-07-05] MEDS ORDERED: LISI10TA22 PO (13:40)
[2022-07-05] MEDS ORDERED: METF-839 PO (13:40)
[2022-07-05] MEDS ORDERED: GABA-282 PO (13:40)
[2022-07-05] MEDS ORDERED: GLIP10TA18 PO (13:40)
[2022-07-05] MEDS ORDERED: HOME MED LIST COMPLETE! XX SCH (13:45)
[2022-07-05 13:49] LABS: ALBUMIN 3.2 G/DL (3.2-5.2); ALKALINE PHOSPHATASE 78 U/L (46-116); ALT/SGPT 15 U/L (7.0-40); AST/SGOT 14 U/L (<34); BILIRUBIN,TOTAL 0.3 MG/DL (0.3-1.2); BLOOD UREA NITROGEN 14 MG/DL (9-23); CALCIUM LEVEL 9.7 MG/DL (8.3-10.6); CARBON DIOXIDE LEVEL 28 MMOL/L (20-31); CHLORIDE LEVEL 102 MMOL/L (98-107); CREATININE FOR GFR 0.85 MG/DL (0.70-1.30); GLOMERULAR FILTRATION RATE > 60.0 (>42); GLUCOSE, FASTING 170 MG/DL (74-106); POTASSIUM SERUM 4.8 MMOL/L (3.5-5.1); SODIUM LEVEL 135 MMOL/L (136-145)
[2022-07-05 14:00] VITALS: BP 135/82
[2022-07-05] MEDS ORDERED: diphenhydrAMINE 50MG/ML VIAL IM PRN (14:00)
[2022-07-05] MEDS ORDERED: diphenhydrAMINE 50MG/ML VIAL IV PRN (14:20)
[2022-07-05 15:29] LABS: TOTAL PROTEIN 6.4 G/DL (5.7-8.2)
[2022-07-05 15:31] LABS: HEMOGLOBIN A1c 7.8 % (4.0-6.0)
[2022-07-05] MEDS: SIMVASTATIN 40 MG TAB PO SCH (15:58)
[2022-07-05] MEDS: ENOXAPARIN 40MG/0.4ML SYRINGE (J1650 PER 10MG) SC SCH (15:58)
[2022-07-05] MEDS: DULoxetine 30MG CAPSULE (CYMBALTA) PO SCH (15:59)
[2022-07-05] MEDS: atenoloL 25 MG TAB PO SCH (15:59)
[2022-07-05] MEDS: AMITRIPTYLINE 25MG TABLET PO SCH (15:59)
[2022-07-05] MEDS: GABAPENTIN 300 MG CAP PO SCH ×2 (15:59→20:15)
[2022-07-05] MEDS ORDERED: VANCOMYCIN HCL 1,000 MG, VIAL MATE ADAPTER 1 EACH in D5W 250 ML IV ONE (16:00)
[2022-07-05] MEDS: INSULIN LISPRO (NovoLOG) PER UNIT SC SCH ×2 (18:08→20:35)
[2022-07-05] MEDS: ONDANSETRON 4MG 2ML VIAL IV PRN (18:20)
[2022-07-05] MEDS: VANCOMYCIN HCL 1,000 MG, VIAL MATE ADAPTER 1 EACH in D5W 250 ML IV SCH (20:15)
[2022-07-05 20:37] VITALS: BP 133/56
[2022-07-05] MEDS ORDERED: ENOXAPARIN 40MG/0.4ML SYRINGE (J1650 PER 10MG) SC SCH (21:00)
[2022-07-06] MEDS: PIPERACILLIN/TAZOBACTAM SOD 4.5 GM in D5W MINI-BAG PLUS 50 ML IV SCH ×4 (01:25→19:25)
[2022-07-06] MEDS: MORPHINE 4 MG/ML 1ML VIAL IV PRN ×3 (01:33→19:54)
[2022-07-06] MEDS: INSULIN LISPRO (NovoLOG) PER UNIT SC SCH ×4 (07:30→21:00)
[2022-07-06 07:32] LABS: HEMATOCRIT 36.6 % (42.0-52.0); HEMOGLOBIN 11.8 g/dl (13.5-17.5); MEAN CORPUSCULAR HEMOGLOBIN 29.1 pg (27.0-33.0); MEAN CORPUSCULAR HGB CONC 32.2 g/dl (32.0-36.5); MEAN CORPUSCULAR VOLUME 90.1 fl (80.0-96.0); PLATELET COUNT, AUTOMATED 304 10^3/uL (150-450); RED BLOOD COUNT 4.06 10^6/uL (4.30-6.10); WHITE BLOOD COUNT 9.9 10^3/uL (4.0-10.0)
[2022-07-06 07:51] LABS: VANCOMYCIN LEVEL TROUGH 10.5 UG/ML (10.0-20.0)
[2022-07-06 07:52] LABS: BLOOD UREA NITROGEN 12 MG/DL (9-23); CALCIUM LEVEL 8.9 MG/DL (8.3-10.6); CARBON DIOXIDE LEVEL 27 MMOL/L (20-31); CHLORIDE LEVEL 105 MMOL/L (98-107); CREATININE FOR GFR 0.91 MG/DL (0.70-1.30); GLOMERULAR FILTRATION RATE > 60.0 (>42); GLUCOSE, FASTING 179 MG/DL (74-106); POTASSIUM SERUM 4.8 MMOL/L (3.5-5.1); SODIUM LEVEL 138 MMOL/L (136-145)
[2022-07-06] MEDS: AMITRIPTYLINE 25MG TABLET PO SCH (08:17)
[2022-07-06] MEDS: SIMVASTATIN 40 MG TAB PO SCH (08:17)
[2022-07-06] MEDS: GABAPENTIN 300 MG CAP PO SCH ×3 (08:17→19:54)
[2022-07-06] MEDS: DULoxetine 30MG CAPSULE (CYMBALTA) PO SCH (08:18)
[2022-07-06] MEDS: VANCOMYCIN HCL 1,000 MG, VIAL MATE ADAPTER 1 EACH in D5W 250 ML IV SCH (08:20)
[2022-07-06] MEDS: atenoloL 25 MG TAB PO SCH (08:20)
[2022-07-06] MEDS ORDERED: FLUBLOK(EGG FREE)(QUAD)INFLUENZA VACC 0.5ML SYRINGE 18YRS & OLDER IM.IMMUN ONE (09:00)
[2022-07-06] MEDS ORDERED: PNEUMOCOCCAL VACCINE 0.5ML SYRINGE (PNEUMOVAX 23) IM.IMMUN ONE (09:00)
[2022-07-06] MEDS ORDERED: MIDAZOLAM INJ 2MG/2ML VIAL As Ordered ONE (11:19)
[2022-07-06] MEDS ORDERED: fentaNYL 100 MCG/2 ML INJECTION As Ordered ONE (11:19)
[2022-07-06] MEDS ORDERED: HYDROMORPHONE HCL 0.5 MG/ 0.5 ML SYRINGE IV PRN (12:25)
[2022-07-06] MEDS ORDERED: LR 1,000 ML IV SCH (12:25)
[2022-07-06] MEDS ORDERED: ONDANSETRON 4MG 2ML VIAL IV PRN (12:25)
[2022-07-06] MEDS ORDERED: oxyCODONE 5MG TAB PO PRN (12:25)
[2022-07-06] MEDS ORDERED: fentaNYL 100 MCG/2 ML INJECTION IV PRN (12:25)
[2022-07-06 13:41] VITALS: BP 107/53
[2022-07-06 14:00] VITALS: BP 99/81
[2022-07-06] MEDS: ENOXAPARIN 40MG/0.4ML SYRINGE (J1650 PER 10MG) SC SCH (16:20)
[2022-07-06 16:23] VITALS: BP 98/76
[2022-07-06 22:00] VITALS: BP 126/58
[2022-07-07] MEDS: PIPERACILLIN/TAZOBACTAM SOD 4.5 GM in D5W MINI-BAG PLUS 50 ML IV SCH ×4 (00:35→18:14)
[2022-07-07] MEDS: MORPHINE 4 MG/ML 1ML VIAL IV PRN ×5 (00:35→21:06)
[2022-07-07 06:00] VITALS: BP 124/59
[2022-07-07] MEDS: INSULIN LISPRO (NovoLOG) PER UNIT SC SCH ×4 (08:20→21:00)
[2022-07-07 08:29] LABS: BASO % 0.4 % (0.0-1.0); EOS # 0.4 10^3/uL (0.0-0.5); EOS % 3.5 % (0.0-3.0); HEMATOCRIT 36.4 % (42.0-52.0); HEMOGLOBIN 11.5 g/dl (13.5-17.5); LYMPH # 1.6 10^3/uL (1.5-5.0); LYMPH % 15.4 % (24.0-44.0); MEAN CORPUSCULAR HEMOGLOBIN 28.8 pg (27.0-33.0); MEAN CORPUSCULAR HGB CONC 31.6 g/dl (32.0-36.5); MEAN CORPUSCULAR VOLUME 91.2 fl (80.0-96.0); MONO # 0.6 10^3/uL (0.0-0.8); MONO % 6.4 % (2.0-8.0); NEUTROPHILS # 7.4 10^3/uL (1.5-8.5); NEUTROPHILS % 73.8 % (36.0-66.0); PLATELET COUNT, AUTOMATED 298 10^3/uL (150-450); RED BLOOD COUNT 3.99 10^6/uL (4.30-6.10); WHITE BLOOD COUNT 10.1 10^3/uL (4.0-10.0)
[2022-07-07] MEDS ORDERED: FLUBLOK(EGG FREE)(QUAD)INFLUENZA VACC 0.5ML SYRINGE 18YRS & OLDER IM.IMMUN ONE (09:00)
[2022-07-07] MEDS ORDERED: PNEUMOCOCCAL VACCINE 0.5ML SYRINGE (PNEUMOVAX 23) IM.IMMUN ONE (09:00)
[2022-07-07] MEDS: DULoxetine 30MG CAPSULE (CYMBALTA) PO SCH (10:36)
[2022-07-07] MEDS: GABAPENTIN 300 MG CAP PO SCH ×3 (10:36→20:59)
[2022-07-07] MEDS: ASPIRIN 81MG ENTERIC TABLET PO SCH (10:36)
[2022-07-07] MEDS: SIMVASTATIN 40 MG TAB PO SCH (10:37)
[2022-07-07] MEDS: AMITRIPTYLINE 25MG TABLET PO SCH (10:37)
[2022-07-07] MEDS: atenoloL 25 MG TAB PO SCH (10:38)
[2022-07-07 14:00] VITALS: BP 140/61
[2022-07-07] MEDS: ENOXAPARIN 40MG/0.4ML SYRINGE (J1650 PER 10MG) SC SCH (15:55)
[2022-07-07 20:28] VITALS: BP 129/68
[2022-07-08] MEDS: PIPERACILLIN/TAZOBACTAM SOD 4.5 GM in D5W MINI-BAG PLUS 50 ML IV SCH ×4 (00:29→18:05)
[2022-07-08] MEDS: MORPHINE 4 MG/ML 1ML VIAL IV PRN (01:42)
[2022-07-08 06:00] VITALS: BP 147/60
[2022-07-08] MEDS: INSULIN LISPRO (NovoLOG) PER UNIT SC SCH ×4 (07:30→20:33)
[2022-07-08 08:04] LABS: BASO # 0.1 10^3/uL (0.0-0.2); BASO % 0.5 % (0.0-1.0); EOS # 0.3 10^3/uL (0.0-0.5); EOS % 2.6 % (0.0-3.0); HEMATOCRIT 36.1 % (42.0-52.0); LYMPH % 7.7 % (24.0-44.0); MEAN CORPUSCULAR HEMOGLOBIN 29.6 pg (27.0-33.0); MEAN CORPUSCULAR HGB CONC 33.2 g/dl (32.0-36.5); MEAN CORPUSCULAR VOLUME 89.1 fl (80.0-96.0); MONO # 0.8 10^3/uL (0.0-0.8); MONO % 6.4 % (2.0-8.0); NEUTROPHILS # 10.4 10^3/uL (1.5-8.5); NEUTROPHILS % 82.3 % (36.0-66.0); PLATELET COUNT, AUTOMATED 270 10^3/uL (150-450); RED BLOOD COUNT 4.05 10^6/uL (4.30-6.10); WHITE BLOOD COUNT 12.6 10^3/uL (4.0-10.0)
[2022-07-08 08:21] LABS: BLOOD UREA NITROGEN 10 MG/DL (9-23); CALCIUM LEVEL 8.5 MG/DL (8.3-10.6); CARBON DIOXIDE LEVEL 27 MMOL/L (20-31); CHLORIDE LEVEL 103 MMOL/L (98-107); CREATININE FOR GFR 0.88 MG/DL (0.70-1.30); GLOMERULAR FILTRATION RATE > 60.0 (>42); GLUCOSE, FASTING 187 MG/DL (74-106); POTASSIUM SERUM 4.7 MMOL/L (3.5-5.1); SODIUM LEVEL 136 MMOL/L (136-145)
[2022-07-08] MEDS: ASPIRIN 81MG ENTERIC TABLET PO SCH (08:30)
[2022-07-08] MEDS: GABAPENTIN 300 MG CAP PO SCH ×3 (08:30→21:30)
[2022-07-08] MEDS: atenoloL 25 MG TAB PO SCH (08:31)
[2022-07-08] MEDS: PERCOCET 5MG/325MG TAB PO PRN ×3 (08:31→21:31)
[2022-07-08] MEDS: SIMVASTATIN 40 MG TAB PO SCH (08:31)
[2022-07-08] MEDS: DULoxetine 30MG CAPSULE (CYMBALTA) PO SCH (08:32)
[2022-07-08] MEDS: AMITRIPTYLINE 25MG TABLET PO SCH (08:32)
[2022-07-08 09:43] LABS: MAGNESIUM LEVEL 1.6 MG/DL (1.8-2.4)
[2022-07-08] MEDS ORDERED: MAG SULF 1GM/100ML (MAG RUN) 1 GM in IV 1 EA IV ONE (12:00)
[2022-07-08 14:00] VITALS: BP 128/65
[2022-07-08] MEDS: ENOXAPARIN 40MG/0.4ML SYRINGE (J1650 PER 10MG) SC SCH (15:43)
[2022-07-08] MEDS ORDERED: ISOVUE-370 76% 100ML VIAL As Ordered ONE (15:48)
[2022-07-08 20:57] VITALS: BP 119/64
[2022-07-09] MEDS: PIPERACILLIN/TAZOBACTAM SOD 4.5 GM in D5W MINI-BAG PLUS 50 ML IV SCH ×3 (01:59→13:47)
[2022-07-09] MEDS: PERCOCET 5MG/325MG TAB PO PRN ×3 (02:05→21:23)
[2022-07-09 06:34] VITALS: BP 143/74
[2022-07-09 08:18] LABS: BASO % 0.4 % (0.0-1.0); EOS # 0.4 10^3/uL (0.0-0.5); EOS % 5.6 % (0.0-3.0); HEMATOCRIT 36.6 % (42.0-52.0); HEMOGLOBIN 11.8 g/dl (13.5-17.5); LYMPH # 1.1 10^3/uL (1.5-5.0); LYMPH % 14.5 % (24.0-44.0); MEAN CORPUSCULAR HEMOGLOBIN 29.1 pg (27.0-33.0); MEAN CORPUSCULAR HGB CONC 32.2 g/dl (32.0-36.5); MEAN CORPUSCULAR VOLUME 90.1 fl (80.0-96.0); MONO # 0.6 10^3/uL (0.0-0.8); MONO % 8.1 % (2.0-8.0); NEUTROPHILS # 5.6 10^3/uL (1.5-8.5); NEUTROPHILS % 70.9 % (36.0-66.0); PLATELET COUNT, AUTOMATED 279 10^3/uL (150-450); RED BLOOD COUNT 4.06 10^6/uL (4.30-6.10); WHITE BLOOD COUNT 7.9 10^3/uL (4.0-10.0)
[2022-07-09 08:42] LABS: BLOOD UREA NITROGEN 13 MG/DL (9-23); CALCIUM LEVEL 8.6 MG/DL (8.3-10.6); CARBON DIOXIDE LEVEL 29 MMOL/L (20-31); CHLORIDE LEVEL 102 MMOL/L (98-107); CREATININE FOR GFR 0.83 MG/DL (0.70-1.30); GLOMERULAR FILTRATION RATE > 60.0 (>42); GLUCOSE, FASTING 159 MG/DL (74-106); MAGNESIUM LEVEL 1.8 MG/DL (1.8-2.4); POTASSIUM SERUM 4.3 MMOL/L (3.5-5.1); SODIUM LEVEL 138 MMOL/L (136-145)
[2022-07-09] MEDS: CLOPIDOGREL 75 MG TAB PO SCH (08:49)
[2022-07-09] MEDS: DULoxetine 30MG CAPSULE (CYMBALTA) PO SCH (08:49)
[2022-07-09] MEDS: AMITRIPTYLINE 25MG TABLET PO SCH (08:49)
[2022-07-09] MEDS: ATORVASTATIN 20 MG TAB PO SCH (08:49)
[2022-07-09] MEDS: INSULIN LISPRO (NovoLOG) PER UNIT SC SCH ×4 (08:49→20:49)
[2022-07-09] MEDS: ASPIRIN 81MG ENTERIC TABLET PO SCH (08:49)
[2022-07-09] MEDS: GABAPENTIN 300 MG CAP PO SCH ×3 (08:49→20:51)
[2022-07-09] MEDS: atenoloL 25 MG TAB PO SCH (08:50)
[2022-07-09] MEDS: PANTOPRAZOLE 40MG TAB (PROTONIX) PO SCH ×2 (09:00→20:51)
[2022-07-09] MEDS ORDERED: SENNA 8.6 MG TAB (SENOKOT) PO PRN (09:00)
[2022-07-09] MEDS ORDERED: BACTRIM 160MG/800MG DS TAB PO SCH (09:00)
[2022-07-09] MEDS ORDERED: MIRALAX *UNIT DOSE* 17GM PACKET PO PRN (09:00)
[2022-07-09] MEDS: ONDANSETRON 4MG 2ML VIAL IV PRN (09:12)
[2022-07-09] MEDS ORDERED: IPRATROPIUM 0.5MG/ALBUTEROL 2.5MG INH SOL UD 3ML (DUONEB) NEB PRN (12:55)
[2022-07-09] MEDS: IPRATROPIUM 0.5MG/ALBUTEROL 2.5MG INH SOL UD 3ML (DUONEB) NEB SCH ×2 (13:16→20:24)
[2022-07-09] MEDS ORDERED: PROMETHAZINE 25MG/ML 1ML VIAL IV PRN (13:30)
[2022-07-09 13:38] LABS: ABG HCO3 22.6 MEQ/L (22.0-26.0); ABG O2 SATURATION 97.4 % (95.0-99.0); ABG PARTIAL PRESSURE CO2 38.1 mmHg (35.0-45.0); ABG PARTIAL PRESSURE O2 93.8 mmHg (75.0-100.0); ABG STANDARD HCO3 22.8 MEQ/L (22.0-26.0); ABG TOTAL CO2 23.8 MEQ/L (23.0-31.0); ABG pH (ARTERIAL) 7.391 UNITS (7.350-7.450)
[2022-07-09] MEDS: predniSONE 20 MG TAB PO SCH (13:46)
[2022-07-09 13:53] VITALS: BP 150/80
[2022-07-09] MEDS ORDERED: ACETAMINOPHEN 500 MG TAB PO PRN (13:55)
[2022-07-09 14:00] VITALS: BP 110/60
[2022-07-09] MEDS ORDERED: LR 1,000 ML IV ONE (14:30)
[2022-07-09 14:31] LABS: BLOOD UREA NITROGEN 19 MG/DL (9-23); CALCIUM LEVEL 9.4 MG/DL (8.3-10.6); CARBON DIOXIDE LEVEL 24 MMOL/L (20-31); CHLORIDE LEVEL 101 MMOL/L (98-107); CREATININE FOR GFR 0.92 MG/DL (0.70-1.30); GLOMERULAR FILTRATION RATE > 60.0 (>42); GLUCOSE, FASTING 177 MG/DL (74-106); POTASSIUM SERUM 4.7 MMOL/L (3.5-5.1); SODIUM LEVEL 138 MMOL/L (136-145)
[2022-07-09] MEDS ORDERED: VANCOMYCIN HCL 1,000 MG, VIAL MATE ADAPTER 1 EACH in D5W 250 ML IV ONE (15:00)
[2022-07-09] MEDS: metroNIDAZOLE (FLAGYL) 500MG TABLET PO SCH ×2 (15:17→21:23)
[2022-07-09] MEDS: ENOXAPARIN 40MG/0.4ML SYRINGE (J1650 PER 10MG) SC SCH (15:18)
[2022-07-09] MEDS ORDERED: ISOVUE-370 76% 100ML VIAL As Ordered ONE (15:50)
[2022-07-09 16:24] VITALS: BP 112/68
[2022-07-09] MEDS: VANCOMYCIN HCL 1,000 MG, VIAL MATE ADAPTER 1 EACH in D5W 250 ML IV SCH (18:07)
[2022-07-09 19:47] VITALS: BP 115/64
[2022-07-09] MEDS: CEFEPIME HCL 2 GM in D5W MINI-BAG PLUS 50 ML IV SCH (20:50)
[2022-07-10] VITALS (8 sets, daily range): BP systolic 106–130; BP diastolic 53–60
[2022-07-10] MEDS: IPRATROPIUM 0.5MG/ALBUTEROL 2.5MG INH SOL UD 3ML (DUONEB) NEB SCH ×4 (02:00→20:00)
[2022-07-10] MEDS: PERCOCET 5MG/325MG TAB PO PRN ×4 (03:38→20:21)
[2022-07-10] MEDS: CEFEPIME HCL 2 GM in D5W MINI-BAG PLUS 50 ML IV SCH ×3 (04:13→20:22)
[2022-07-10] MEDS: metroNIDAZOLE (FLAGYL) 500MG TABLET PO SCH ×3 (05:25→20:21)
[2022-07-10] MEDS: VANCOMYCIN HCL 1,000 MG, VIAL MATE ADAPTER 1 EACH in D5W 250 ML IV SCH ×2 (05:26→18:12)
[2022-07-10 05:28] LABS: BASO % 0.2 % (0.0-1.0); EOS % 0.2 % (0.0-3.0); HEMATOCRIT 42.4 % (42.0-52.0); HEMOGLOBIN 13.4 g/dl (13.5-17.5); LYMPH # 1.1 10^3/uL (1.5-5.0); LYMPH % 5.6 % (24.0-44.0); MEAN CORPUSCULAR HGB CONC 31.6 g/dl (32.0-36.5); MEAN CORPUSCULAR VOLUME 91.8 fl (80.0-96.0); MONO % 4.9 % (2.0-8.0); NEUTROPHILS # 17.2 10^3/uL (1.5-8.5); NEUTROPHILS % 88.5 % (36.0-66.0); PLATELET COUNT, AUTOMATED 321 10^3/uL (150-450); RED BLOOD COUNT 4.62 10^6/uL (4.30-6.10); WHITE BLOOD COUNT 19.4 10^3/uL (4.0-10.0)
[2022-07-10 05:53] LABS: BLOOD UREA NITROGEN 26 MG/DL (9-23); CALCIUM LEVEL 9.1 MG/DL (8.3-10.6); CARBON DIOXIDE LEVEL 26 MMOL/L (20-31); CHLORIDE LEVEL 103 MMOL/L (98-107); CREATININE FOR GFR 0.93 MG/DL (0.70-1.30); GLOMERULAR FILTRATION RATE > 60.0 (>42); GLUCOSE, FASTING 193 MG/DL (74-106); POTASSIUM SERUM 5.1 MMOL/L (3.5-5.1); SODIUM LEVEL 138 MMOL/L (136-145)
[2022-07-10] MEDS ORDERED: LR 1,000 ML IV SCH (06:00)
[2022-07-10] MEDS: INSULIN LISPRO (NovoLOG) PER UNIT SC SCH ×4 (08:52→20:22)
[2022-07-10] MEDS: DULoxetine 30MG CAPSULE (CYMBALTA) PO SCH (08:53)
[2022-07-10] MEDS: ASPIRIN 81MG ENTERIC TABLET PO SCH (08:53)
[2022-07-10] MEDS: ATORVASTATIN 20 MG TAB PO SCH (08:53)
[2022-07-10] MEDS: CLOPIDOGREL 75 MG TAB PO SCH (08:53)
[2022-07-10] MEDS: predniSONE 20 MG TAB PO SCH (08:53)
[2022-07-10] MEDS: GABAPENTIN 300 MG CAP PO SCH ×3 (08:53→20:20)
[2022-07-10] MEDS: PANTOPRAZOLE 40MG TAB (PROTONIX) PO SCH ×2 (08:53→20:20)
[2022-07-10] MEDS: AMITRIPTYLINE 25MG TABLET PO SCH (08:54)
[2022-07-10] MEDS: atenoloL 25 MG TAB PO SCH (08:54)
[2022-07-10 14:23] LABS: BASO % 0.2 % (0.0-1.0); EOS # 0.1 10^3/uL (0.0-0.5); EOS % 0.6 % (0.0-3.0); HEMATOCRIT 35.5 % (42.0-52.0); LYMPH # 0.8 10^3/uL (1.5-5.0); LYMPH % 4.9 % (24.0-44.0); MEAN CORPUSCULAR HGB CONC 32.1 g/dl (32.0-36.5); MEAN CORPUSCULAR VOLUME 90.3 fl (80.0-96.0); MONO # 0.5 10^3/uL (0.0-0.8); MONO % 3.2 % (2.0-8.0); NEUTROPHILS # 15.3 10^3/uL (1.5-8.5); NEUTROPHILS % 90.4 % (36.0-66.0); PLATELET COUNT, AUTOMATED 273 10^3/uL (150-450); RED BLOOD COUNT 3.93 10^6/uL (4.30-6.10); WHITE BLOOD COUNT 16.9 10^3/uL (4.0-10.0)
[2022-07-10 14:24] LABS: HEMOGLOBIN 11.4 g/dl (13.5-17.5)
[2022-07-10] MEDS: ENOXAPARIN 40MG/0.4ML SYRINGE (J1650 PER 10MG) SC SCH (16:12)
[2022-07-11] MEDS: IPRATROPIUM 0.5MG/ALBUTEROL 2.5MG INH SOL UD 3ML (DUONEB) NEB SCH ×4 (01:56→19:16)
[2022-07-11 04:13] VITALS: BP 126/60
[2022-07-11] MEDS: CEFEPIME HCL 2 GM in D5W MINI-BAG PLUS 50 ML IV SCH ×3 (04:30→20:08)
[2022-07-11] MEDS: metroNIDAZOLE (FLAGYL) 500MG TABLET PO SCH (05:25)
[2022-07-11] MEDS: VANCOMYCIN HCL 1,000 MG, VIAL MATE ADAPTER 1 EACH in D5W 250 ML IV SCH ×2 (05:25→18:20)
[2022-07-11 06:41] LABS: BASO # 0.1 10^3/uL (0.0-0.2); BASO % 0.4 % (0.0-1.0); EOS # 0.1 10^3/uL (0.0-0.5); HEMATOCRIT 32.5 % (42.0-52.0); HEMOGLOBIN 10.3 g/dl (13.5-17.5); LYMPH # 1.6 10^3/uL (1.5-5.0); LYMPH % 11.6 % (24.0-44.0); MEAN CORPUSCULAR HEMOGLOBIN 28.8 pg (27.0-33.0); MEAN CORPUSCULAR HGB CONC 31.7 g/dl (32.0-36.5); MEAN CORPUSCULAR VOLUME 90.8 fl (80.0-96.0); MONO # 0.7 10^3/uL (0.0-0.8); MONO % 4.7 % (2.0-8.0); NEUTROPHILS # 11.4 10^3/uL (1.5-8.5); NEUTROPHILS % 81.4 % (36.0-66.0); PLATELET COUNT, AUTOMATED 253 10^3/uL (150-450); RED BLOOD COUNT 3.58 10^6/uL (4.30-6.10); WHITE BLOOD COUNT 14.1 10^3/uL (4.0-10.0)
[2022-07-11 07:07] LABS: BLOOD UREA NITROGEN 26 MG/DL (9-23); CALCIUM LEVEL 7.8 MG/DL (8.3-10.6); CARBON DIOXIDE LEVEL 27 MMOL/L (20-31); CHLORIDE LEVEL 103 MMOL/L (98-107); GLOMERULAR FILTRATION RATE > 60.0 (>42); GLUCOSE, FASTING 295 MG/DL (74-106); POTASSIUM SERUM 4.3 MMOL/L (3.5-5.1); SODIUM LEVEL 138 MMOL/L (136-145)
[2022-07-11 07:54] VITALS: BP 136/66
[2022-07-11] MEDS: INSULIN LISPRO (NovoLOG) PER UNIT SC SCH ×4 (07:54→20:07)
[2022-07-11] MEDS: PERCOCET 5MG/325MG TAB PO PRN ×3 (07:55→20:08)
[2022-07-11] MEDS: AMITRIPTYLINE 25MG TABLET PO SCH (08:44)
[2022-07-11] MEDS: ASPIRIN 81MG ENTERIC TABLET PO SCH (08:44)
[2022-07-11] MEDS: predniSONE 20 MG TAB PO SCH (08:44)
[2022-07-11] MEDS: GABAPENTIN 300 MG CAP PO SCH ×3 (08:44→20:06)
[2022-07-11] MEDS: DULoxetine 30MG CAPSULE (CYMBALTA) PO SCH (08:44)
[2022-07-11] MEDS: atenoloL 25 MG TAB PO SCH (08:45)
[2022-07-11] MEDS: ATORVASTATIN 20 MG TAB PO SCH (08:45)
[2022-07-11] MEDS: CLOPIDOGREL 75 MG TAB PO SCH (08:45)
[2022-07-11] MEDS: PANTOPRAZOLE 40MG TAB (PROTONIX) PO SCH ×2 (08:45→20:08)
[2022-07-11 09:00] VITALS: BP 125/60
[2022-07-11] MEDS ORDERED: LEVEMIR (INSULIN DETEMIR) 1 UNITS/0.01ML SC SCH ×2 (09:00→21:00)
[2022-07-11 11:36] VITALS: BP 151/65
[2022-07-11 15:48] VITALS: BP 120/60
[2022-07-11] MEDS: ENOXAPARIN 40MG/0.4ML SYRINGE (J1650 PER 10MG) SC SCH (16:40)
[2022-07-11 19:56] VITALS: BP 131/59
[2022-07-12] MEDS: IPRATROPIUM 0.5MG/ALBUTEROL 2.5MG INH SOL UD 3ML (DUONEB) NEB SCH ×4 (02:00→19:26)
[2022-07-12] MEDS: PERCOCET 5MG/325MG TAB PO PRN ×4 (03:35→21:35)
[2022-07-12 03:47] VITALS: BP 140/64
[2022-07-12] MEDS: CEFEPIME HCL 2 GM in D5W MINI-BAG PLUS 50 ML IV SCH ×3 (04:16→20:37)
[2022-07-12] MEDS: VANCOMYCIN HCL 1,000 MG, VIAL MATE ADAPTER 1 EACH in D5W 250 ML IV SCH ×2 (05:26→17:28)
[2022-07-12 05:50] LABS: HEMATOCRIT 32.4 % (42.0-52.0); HEMOGLOBIN 10.4 g/dl (13.5-17.5); MEAN CORPUSCULAR HEMOGLOBIN 29.1 pg (27.0-33.0); MEAN CORPUSCULAR HGB CONC 32.1 g/dl (32.0-36.5); MEAN CORPUSCULAR VOLUME 90.8 fl (80.0-96.0); PLATELET COUNT, AUTOMATED 304 10^3/uL (150-450); RED BLOOD COUNT 3.57 10^6/uL (4.30-6.10)
[2022-07-12 06:15] LABS: BLOOD UREA NITROGEN 30 MG/DL (9-23); CALCIUM LEVEL 8.3 MG/DL (8.3-10.6); CARBON DIOXIDE LEVEL 28 MMOL/L (20-31); CHLORIDE LEVEL 104 MMOL/L (98-107); CREATININE FOR GFR 0.76 MG/DL (0.70-1.30); GLOMERULAR FILTRATION RATE > 60.0 (>42); GLUCOSE, FASTING 269 MG/DL (74-106); POTASSIUM SERUM 4.9 MMOL/L (3.5-5.1); SODIUM LEVEL 138 MMOL/L (136-145)
[2022-07-12] MEDS: INSULIN LISPRO (NovoLOG) PER UNIT SC SCH ×4 (07:30→20:38)
[2022-07-12 08:00] VITALS: BP 138/74
[2022-07-12] MEDS ORDERED: fentaNYL 100 MCG/2 ML INJECTION As Ordered ONE ×2 (09:15→10:18)
[2022-07-12] MEDS ORDERED: MIDAZOLAM INJ 2MG/2ML VIAL As Ordered ONE (09:15)
[2022-07-12] MEDS ORDERED: ISOVUE-300 61% 100ML VIAL As Ordered ONE (09:21)
[2022-07-12] MEDS ORDERED: LIDOCAINE 1% MDV 20ML VIAL As Ordered ONE (09:21)
[2022-07-12] MEDS ORDERED: HEPARIN 1,000UNITS/ML 10ML VIAL (FOR RADIOLOGY & DIALYSIS ONLY) As Ordered ONE (09:21)
[2022-07-12 11:32] VITALS: BP 130/68
[2022-07-12] MEDS: LEVEMIR (INSULIN DETEMIR) 1 UNITS/0.01ML SC SCH ×2 (14:15→20:38)
[2022-07-12] MEDS: ENOXAPARIN 40MG/0.4ML SYRINGE (J1650 PER 10MG) SC SCH (14:16)
[2022-07-12] MEDS: GABAPENTIN 300 MG CAP PO SCH ×3 (14:17→20:37)
[2022-07-12] MEDS: AMITRIPTYLINE 25MG TABLET PO SCH (14:17)
[2022-07-12] MEDS: predniSONE 20 MG TAB PO SCH (14:17)
[2022-07-12] MEDS: ASPIRIN 81MG ENTERIC TABLET PO SCH (14:17)
[2022-07-12] MEDS: CLOPIDOGREL 75 MG TAB PO SCH (14:17)
[2022-07-12] MEDS: ATORVASTATIN 20 MG TAB PO SCH (14:17)
[2022-07-12] MEDS: atenoloL 25 MG TAB PO SCH (14:17)
[2022-07-12] MEDS: DULoxetine 30MG CAPSULE (CYMBALTA) PO SCH (14:17)
[2022-07-12] MEDS: PANTOPRAZOLE 40MG TAB (PROTONIX) PO SCH ×2 (14:18→20:39)
[2022-07-12 15:34] VITALS: BP 146/68
[2022-07-12 20:00] VITALS: BP 140/62
[2022-07-13] MEDS: IPRATROPIUM 0.5MG/ALBUTEROL 2.5MG INH SOL UD 3ML (DUONEB) NEB SCH ×2 (02:48→07:13)
[2022-07-13 04:00] VITALS: BP 153/62
[2022-07-13] MEDS: VANCOMYCIN HCL 1,000 MG, VIAL MATE ADAPTER 1 EACH in D5W 250 ML IV SCH (06:00)
[2022-07-13] MEDS: CEFEPIME HCL 2 GM in D5W MINI-BAG PLUS 50 ML IV SCH ×2 (06:35→12:12)
[2022-07-13] MEDS: PERCOCET 5MG/325MG TAB PO PRN ×2 (06:37→12:19)
[2022-07-13 07:49] VITALS: BP 146/70
[2022-07-13 08:06] LABS: HEMATOCRIT 35.7 % (42.0-52.0); HEMOGLOBIN 11.3 g/dl (13.5-17.5); MEAN CORPUSCULAR HGB CONC 31.7 g/dl (32.0-36.5); MEAN CORPUSCULAR VOLUME 91.5 fl (80.0-96.0); PLATELET COUNT, AUTOMATED 285 10^3/uL (150-450); WHITE BLOOD COUNT 12.7 10^3/uL (4.0-10.0)
[2022-07-13] MEDS: LEVEMIR (INSULIN DETEMIR) 1 UNITS/0.01ML SC SCH (08:18)
[2022-07-13] MEDS: CLOPIDOGREL 75 MG TAB PO SCH (08:18)
[2022-07-13] MEDS: DULoxetine 30MG CAPSULE (CYMBALTA) PO SCH (08:18)
[2022-07-13] MEDS: INSULIN LISPRO (NovoLOG) PER UNIT SC SCH ×2 (08:18→12:11)
[2022-07-13] MEDS: PANTOPRAZOLE 40MG TAB (PROTONIX) PO SCH (08:18)
[2022-07-13 08:19] VITALS: BP 146/70
[2022-07-13] MEDS: atenoloL 25 MG TAB PO SCH (08:19)
[2022-07-13] MEDS: ASPIRIN 81MG ENTERIC TABLET PO SCH (08:19)
[2022-07-13] MEDS: predniSONE 20 MG TAB PO SCH (08:19)
[2022-07-13] MEDS: GABAPENTIN 300 MG CAP PO SCH (08:19)
[2022-07-13] MEDS: ATORVASTATIN 20 MG TAB PO SCH (08:19)
[2022-07-13 08:25] LABS: BLOOD UREA NITROGEN 24 MG/DL (9-23); CALCIUM LEVEL 8.5 MG/DL (8.3-10.6); CARBON DIOXIDE LEVEL 27 MMOL/L (20-31); CHLORIDE LEVEL 104 MMOL/L (98-107); CREATININE FOR GFR 0.81 MG/DL (0.70-1.30); GLOMERULAR FILTRATION RATE > 60.0 (>42); GLUCOSE, FASTING 261 MG/DL (74-106); POTASSIUM SERUM 4.6 MMOL/L (3.5-5.1); SODIUM LEVEL 138 MMOL/L (136-145)
[2022-07-13] MEDS ORDERED: LEVO750T14 PO ×2 (10:14→12:54)
[2022-07-13] MEDS ORDERED: PERCOCET PO ×2 (10:14→10:29)
[2022-07-13] MEDS ORDERED: CLOP75TA2 PO (10:14)
[2022-07-13] MEDS ORDERED: BACT400T PO (10:14)
[2022-07-13] MEDS ORDERED: ATOR1TAB21 PO (10:14)
[2022-07-13] MEDS ORDERED: BACT800T5 PO ×2 (10:27→12:54)
[2022-07-13] MEDS ORDERED: AMITRIPTYLINE 25MG TABLET PO SCH (21:00)
== END 2022-07-13 15:06 | disposition home health service (06) | DRG 253 ==
LOC: M MSPAV 11:10 → UNDODISIN 07-06 09:58 → M PCU 07-09 16:10
PROVIDERS: ADMIT Internal Medicine; ATTEND Internal Medicine
PROC: 0Y6Q0Z0 Detachment at Left 1st Toe, Complete, Open Approach (ICD-10-PCS; 2022-07-06)
PROC: 047J3DZ Dilation of Left External Iliac Artery with Intraluminal Device, Percutaneous Approach (ICD-10-PCS; principal; 2022-07-12 09:00)
DX: E11.52 Type 2 diabetes mellitus with diabetic peripheral angiopathy with gangrene (principal); M86.8X7 Other osteomyelitis, ankle and foot; J44.1 Chronic obstructive pulmonary disease with (acute) exacerbation; I47.1 Supraventricular tachycardia; R09.02 Hypoxemia; E86.0 Dehydration; I70.203 Unspecified atherosclerosis of native arteries of extremities, bilateral legs; I25.10 Atherosclerotic heart disease of native coronary artery without angina pectoris; E11.649 Type 2 diabetes mellitus with hypoglycemia without coma; E11.69 Type 2 diabetes mellitus with other specified complication; I77.1 Stricture of artery; M54.9 Dorsalgia, unspecified; L97.529 Non-pressure chronic ulcer of other part of left foot with unspecified severity; G89.29 Other chronic pain; I10 Essential (primary) hypertension; E78.5 Hyperlipidemia, unspecified; E11.621 Type 2 diabetes mellitus with foot ulcer; E11.42 Type 2 diabetes mellitus with diabetic polyneuropathy; Z66 Do not resuscitate; Z95.5 Presence of coronary angioplasty implant and graft; Z79.82 Long term (current) use of aspirin; Z79.84 Long term (current) use of oral hypoglycemic drugs; Z79.899 Other long term (current) drug therapy; Z88.1 Allergy status to other antibiotic agents; Z20.822 Contact with and (suspected) exposure to COVID-19; Z95.828 Presence of other vascular implants and grafts

== ENCOUNTER 2022-07-13 16:46 | Emergency (ER) | payer MEDICARE ==
[~2022-07-13] VITALS: Ht 177.8 cm; Wt 86.4 kg
[~2022-07-13 16:46] MED LIST changes: +AMIT25TA17 PO; +ATEN25TA PO; +ATOR1TAB21 PO; +BACT400T PO; +CLOP75TA2 PO; +GABA-282 PO; +GLIP10TA18 PO; +JARD1TAB PO; +LEVO750T14 PO; +METF-839 PO
[2022-07-13] MEDS ORDERED: NITROGLYCERIN 0.4MG SUBL TABLET SL PRN (17:25)
[2022-07-13] MEDS ORDERED: ISOVUE-370 76% 100ML VIAL As Ordered ONE (17:32)
[2022-07-13 17:50] LABS: INR 1.05; PROTHROMBIN TIME 13.9 SECONDS (12.5-14.5)
[2022-07-13 17:52] LABS: PARTIAL THROMBOPLASTIN TIME 25.2 SECONDS (24.8-34.2)
[2022-07-13 17:55] LABS: BASO # 0.1 10^3/uL (0.0-0.2); BASO % 0.6 % (0.0-1.0); EOS % 0.1 % (0.0-3.0); HEMATOCRIT 36.1 % (42.0-52.0); HEMOGLOBIN 11.4 g/dl (13.5-17.5); LYMPH # 1.4 10^3/uL (1.5-5.0); LYMPH % 6.8 % (24.0-44.0); MEAN CORPUSCULAR HEMOGLOBIN 29.1 pg (27.0-33.0); MEAN CORPUSCULAR HGB CONC 31.6 g/dl (32.0-36.5); MEAN CORPUSCULAR VOLUME 92.1 fl (80.0-96.0); MONO # 0.7 10^3/uL (0.0-0.8); MONO % 3.5 % (2.0-8.0); NEUTROPHILS # 17.8 10^3/uL (1.5-8.5); NEUTROPHILS % 85.7 % (36.0-66.0); PLATELET COUNT, AUTOMATED 379 10^3/uL (150-450); RED BLOOD COUNT 3.92 10^6/uL (4.30-6.10); WHITE BLOOD COUNT 20.8 10^3/uL (4.0-10.0)
[2022-07-13 18:00] VITALS: BP 193/93
[2022-07-13 18:05] LABS: LIPASE 16 U/L (12-53)
[2022-07-13 18:06] LABS: CPK CREATINE PHOSPHOKINASE 103 U/L (46-171)
[2022-07-13 18:12] LABS: ALKALINE PHOSPHATASE 78 U/L (46-116); ALT/SGPT 48 U/L (7.0-40); AST/SGOT 49 U/L (<34); BILIRUBIN,DIRECT 0.1 MG/DL (<0.4); BILIRUBIN,TOTAL 0.4 MG/DL (0.3-1.2); BLOOD UREA NITROGEN 30 MG/DL (9-23); CALCIUM LEVEL 9.1 MG/DL (8.3-10.6); CARBON DIOXIDE LEVEL 23 MMOL/L (20-31); CHLORIDE LEVEL 103 MMOL/L (98-107); CK-MB VALUE MASS 3.9 NG/ML (<3.6); CREATININE FOR GFR 0.91 MG/DL (0.70-1.30); FREE T4 0.92 NG/DL (0.89-1.76); GLOMERULAR FILTRATION RATE > 60.0 (>42); GLUCOSE, FASTING 307 MG/DL (74-106); MB/CK RELATIVE INDEX 3.78 (< OR =4); POTASSIUM SERUM 5.2 MMOL/L (3.5-5.1); SODIUM LEVEL 139 MMOL/L (136-145); THYROID STIMULATING HORMONE 1.993 uIU/ML (0.55-4.78); TOTAL PROTEIN 6.3 G/DL (5.7-8.2)
[2022-07-13 19:10] LABS: CK-MB VALUE MASS 4.6 NG/ML (<3.6)
[2022-07-13 19:12] LABS: MB/CK RELATIVE INDEX 4.64 (< OR =4)
[2022-07-13] MEDS ORDERED: MORPHINE 4 MG/ML 1ML VIAL IV ONE (19:25)
[2022-07-13 19:51] LABS: RSV AMPLIFICATION NEGATIVE (NEGATIVE)
[2022-07-13] MEDS ORDERED: ASPIRIN 81MG CHEW TABLET PO ONE (20:10)
[2022-07-13] MEDS ORDERED: CLOPIDOGREL 300 MG TAB (PLAVIX) PO ONE (20:10)
[2022-07-13] MEDS ORDERED: HEPARIN DRIP 25,000 UNITS in IV 1 EA IV SCH (20:10)
[2022-07-13] MEDS ORDERED: HEPARIN SOD (PORCINE) 5000UNITS/ML 1ML VIAL/SYRINGE IV ONE (20:10)
[2022-07-13] MEDS ORDERED: MORPHINE 2 MG/ML 1ML VIAL IV ONE (22:15)
[2022-07-13 22:33] VITALS: BP 172/84
== END 2022-07-13 22:47 | disposition short-term general hospital (02) ==
LOC: M ED 16:46
DX: I21.4 Non-ST elevation (NSTEMI) myocardial infarction (principal); I25.10 Atherosclerotic heart disease of native coronary artery without angina pectoris; I10 Essential (primary) hypertension; E11.51 Type 2 diabetes mellitus with diabetic peripheral angiopathy without gangrene; E78.5 Hyperlipidemia, unspecified; I73.9 Peripheral vascular disease, unspecified; M54.9 Dorsalgia, unspecified; Z89.422 Acquired absence of other left toe(s); Z98.890 Other specified postprocedural states; Z95.1 Presence of aortocoronary bypass graft; Z98.61 Coronary angioplasty status; Z88.1 Allergy status to other antibiotic agents; Z79.899 Other long term (current) drug therapy; Z79.02 Long term (current) use of antithrombotics/antiplatelets; Z79.891 Long term (current) use of opiate analgesic; Z79.2 Long term (current) use of antibiotics; Z79.82 Long term (current) use of aspirin; Z79.84 Long term (current) use of oral hypoglycemic drugs
CPT/HCPCS: 71046; 71275; 80047; 80048; 80076; 82550; 82553; 83690; 84439; 84443; 84484; 85025; 85610; 85730; 87631; 93005; 93041; 94760; 96374; 96375; 99285; J2270; Q9967

== ENCOUNTER → 2022-08-01 | Outpatient (REF) | payer MEDICARE | LOC: M LAB REF 12:28 | PROVIDERS: ATTEND Podiatrist Foot & Ankle Surgery | DX: S91.302A Unspecified open wound, left foot, initial encounter (principal) ==

== ENCOUNTER 2022-08-29 10:20 | Inpatient (IN) | payer MEDICARE ==
[~2022-08-29] VITALS: Ht 177.8 cm; Wt 92.2 kg
[2022-08-29 12:10] VITALS: BP 122/70
[2022-08-29] MEDS ORDERED: GLUCOSE 4GM CHEW TABLET PO PRN (12:55)
[2022-08-29] MEDS ORDERED: GLUCAGON INJ 1MG VIAL SC PRN (12:55)
[2022-08-29] MEDS ORDERED: DEXTROSE 50% 50ML SYRINGE IV PRN (12:55)
[2022-08-29 13:35] LABS: HEMATOCRIT 42.5 % (42.0-52.0); HEMOGLOBIN 12.7 g/dl (13.5-17.5); MEAN CORPUSCULAR HEMOGLOBIN 28.7 pg (27.0-33.0); MEAN CORPUSCULAR HGB CONC 29.9 g/dl (32.0-36.5); MEAN CORPUSCULAR VOLUME 96.2 fl (80.0-96.0); PLATELET COUNT, AUTOMATED 269 10^3/uL (150-450); RED BLOOD COUNT 4.42 10^6/uL (4.30-6.10); WHITE BLOOD COUNT 11.3 10^3/uL (4.0-10.0)
[2022-08-29 14:00] VITALS: BP 134/74
[2022-08-29] MEDS ORDERED: CLOP75TA99 PO (14:03)
[2022-08-29] MEDS ORDERED: ATOR1TAB21 PO (14:03)
[2022-08-29 14:04] LABS: ALBUMIN 3.3 G/DL (3.2-5.2); ALKALINE PHOSPHATASE 67 U/L (46-116); ALT/SGPT 17 U/L (7.0-40); AST/SGOT 19 U/L (<34); BILIRUBIN,TOTAL 0.6 MG/DL (0.3-1.2); BLOOD UREA NITROGEN 24 MG/DL (9-23); CALCIUM LEVEL 9.2 MG/DL (8.3-10.6); CARBON DIOXIDE LEVEL 26 MMOL/L (20-31); CHLORIDE LEVEL 103 MMOL/L (98-107); CREATININE FOR GFR 0.89 MG/DL (0.70-1.30); GLOMERULAR FILTRATION RATE > 60.0 (>42); GLUCOSE, FASTING 155 MG/DL (74-106); POTASSIUM SERUM 4.6 MMOL/L (3.5-5.1); SODIUM LEVEL 135 MMOL/L (136-145); TOTAL PROTEIN 6.9 G/DL (5.7-8.2)
[2022-08-29] MEDS ORDERED: HOME MED LIST COMPLETE! XX SCH (14:10)
[2022-08-29 14:58] LABS: INR 0.96
[2022-08-29 14:59] LABS: PARTIAL THROMBOPLASTIN TIME 30.9 SECONDS (24.8-34.2)
[2022-08-29 15:48] LABS: HEMOGLOBIN A1c 7.4 % (4.0-6.0)
[2022-08-29] MEDS: GABAPENTIN 300 MG CAP PO SCH ×2 (17:23→20:48)
[2022-08-29] MEDS: INSULIN LISPRO (NovoLOG) PER UNIT SC SCH ×2 (17:23→20:32)
[2022-08-29 18:00] VITALS: BP 120/70
[2022-08-29] MEDS ORDERED: KETOROLAC 30 MG/ML 1ML VIAL IV ONE (20:10)
[2022-08-29 20:40] VITALS: BP 126/56
[2022-08-30] VITALS: BP 132/68
[2022-08-30 05:26] VITALS: BP 148/78
[2022-08-30 05:55] LABS: HEMATOCRIT 41.2 % (42.0-52.0); MEAN CORPUSCULAR HEMOGLOBIN 28.5 pg (27.0-33.0); MEAN CORPUSCULAR HGB CONC 31.6 g/dl (32.0-36.5); MEAN CORPUSCULAR VOLUME 90.4 fl (80.0-96.0); PLATELET COUNT, AUTOMATED 271 10^3/uL (150-450); RED BLOOD COUNT 4.56 10^6/uL (4.30-6.10); WHITE BLOOD COUNT 7.7 10^3/uL (4.0-10.0)
[2022-08-30 06:21] LABS: BLOOD UREA NITROGEN 26 MG/DL (9-23); CALCIUM LEVEL 9.1 MG/DL (8.3-10.6); CARBON DIOXIDE LEVEL 28 MMOL/L (20-31); CHLORIDE LEVEL 103 MMOL/L (98-107); CREATININE FOR GFR 1.03 MG/DL (0.70-1.30); GLOMERULAR FILTRATION RATE > 60.0 (>42); GLUCOSE, FASTING 136 MG/DL (74-106); POTASSIUM SERUM 4.4 MMOL/L (3.5-5.1); SODIUM LEVEL 138 MMOL/L (136-145)
[2022-08-30] MEDS: INSULIN LISPRO (NovoLOG) PER UNIT SC SCH ×4 (08:56→21:00)
[2022-08-30] MEDS: ASPIRIN 81MG ENTERIC TABLET PO SCH (08:57)
[2022-08-30] MEDS: CLOPIDOGREL 75 MG TAB PO SCH (08:58)
[2022-08-30] MEDS: DULoxetine 30MG CAPSULE (CYMBALTA) PO SCH (08:58)
[2022-08-30] MEDS: GABAPENTIN 300 MG CAP PO SCH ×3 (08:58→21:32)
[2022-08-30] MEDS: ATORVASTATIN 20 MG TAB PO SCH (08:58)
[2022-08-30] MEDS: atenoloL 25 MG TAB PO SCH (09:14)
[2022-08-30] MEDS: AMITRIPTYLINE 25MG TABLET PO SCH (10:47)
[2022-08-30 14:00] VITALS: BP 148/67
[2022-08-30] MEDS: ACETAMINOPH W/CODEINE #3 TAB UD PO PRN (15:29)
[2022-08-30] MEDS: ONDANSETRON 4MG TAB PO PRN (16:23)
[2022-08-30 18:00] VITALS: BP 126/65
[2022-08-30] MEDS: ACETAMINOPHEN TAB 650MG DOSE (2X325MG) PO PRN (18:13)
[2022-08-30 22:00] VITALS: BP 139/70
[2022-08-31] VITALS (9 sets, daily range): BP systolic 107–159; BP diastolic 56–87
[2022-08-31] MEDS: ACETAMINOPHEN TAB 650MG DOSE (2X325MG) PO PRN ×3 (01:55→22:25)
[2022-08-31] MEDS ORDERED: NS 1,000 ML IV ONE (02:50)
[2022-08-31] MEDS ORDERED: KETOROLAC 30 MG/ML 1ML VIAL IV ONE ×2 (02:50→23:25)
[2022-08-31 03:28] LABS: HEMATOCRIT 35.8 % (42.0-52.0); HEMOGLOBIN 11.6 g/dl (13.5-17.5); MEAN CORPUSCULAR HEMOGLOBIN 28.6 pg (27.0-33.0); MEAN CORPUSCULAR HGB CONC 32.4 g/dl (32.0-36.5); MEAN CORPUSCULAR VOLUME 88.4 fl (80.0-96.0); PLATELET COUNT, AUTOMATED 259 10^3/uL (150-450); RED BLOOD COUNT 4.05 10^6/uL (4.30-6.10); WHITE BLOOD COUNT 9.1 10^3/uL (4.0-10.0)
[2022-08-31 03:50] LABS: BLOOD UREA NITROGEN 19 MG/DL (9-23); CALCIUM LEVEL 8.9 MG/DL (8.3-10.6); CARBON DIOXIDE LEVEL 24 MMOL/L (20-31); CHLORIDE LEVEL 101 MMOL/L (98-107); CREATININE FOR GFR 0.93 MG/DL (0.70-1.30); GLOMERULAR FILTRATION RATE > 60.0 (>42); GLUCOSE, FASTING 226 MG/DL (74-106); POTASSIUM SERUM 4.4 MMOL/L (3.5-5.1); SODIUM LEVEL 132 MMOL/L (136-145)
[2022-08-31] MEDS ORDERED: VANCOMYCIN HCL 1,000 MG, VIAL MATE ADAPTER 1 EACH in D5W 250 ML IV ONE (04:00)
[2022-08-31] MEDS ORDERED: VANCOMYCIN HCL 750 MG, VIAL MATE ADAPTER 1 EACH in D5W 250 ML IV ONE (05:00)
[2022-08-31] MEDS: INSULIN LISPRO (NovoLOG) PER UNIT SC SCH ×5 (07:30→21:00)
[2022-08-31] MEDS: GABAPENTIN 300 MG CAP PO SCH ×3 (08:56→22:24)
[2022-08-31] MEDS: ATORVASTATIN 20 MG TAB PO SCH (08:56)
[2022-08-31] MEDS: AMITRIPTYLINE 25MG TABLET PO SCH (08:56)
[2022-08-31] MEDS: DULoxetine 30MG CAPSULE (CYMBALTA) PO SCH (08:57)
[2022-08-31] MEDS: atenoloL 25 MG TAB PO SCH (08:57)
[2022-08-31] MEDS: ASPIRIN 81MG ENTERIC TABLET PO SCH (09:00)
[2022-08-31] MEDS: CLOPIDOGREL 75 MG TAB PO SCH (09:00)
[2022-08-31] MEDS ORDERED: LIDOCAINE 2% 100MG/5ML SDV (FOR ANES.) As Ordered ONE (12:12)
[2022-08-31] MEDS ORDERED: MIDAZOLAM INJ 2MG/2ML VIAL As Ordered ONE (12:13)
[2022-08-31] MEDS ORDERED: propofoL 200 MG/20 ML VIAL As Ordered ONE (12:13)
[2022-08-31] MEDS ORDERED: fentaNYL 100 MCG/2 ML INJECTION As Ordered ONE (12:13)
[2022-08-31] MEDS ORDERED: BUPIVACAINE HCL 0.5% 30ML VIAL As Ordered ONE (12:22)
[2022-08-31] MEDS ORDERED: LIDOCAINE 1% MDV 20ML VIAL As Ordered ONE (12:22)
[2022-08-31] MEDS: VANCOMYCIN HCL 1,000 MG, VIAL MATE ADAPTER 1 EACH in NS 250 ML IV SCH (14:23)
[2022-09-01] MEDS: VANCOMYCIN HCL 1,000 MG, VIAL MATE ADAPTER 1 EACH in NS 250 ML IV SCH ×2 (00:40→12:12)
[2022-09-01 02:00] VITALS: BP 115/58
[2022-09-01 06:00] VITALS: BP 117/57
[2022-09-01 07:27] LABS: HEMATOCRIT 35.7 % (42.0-52.0); HEMOGLOBIN 11.2 g/dl (13.5-17.5); MEAN CORPUSCULAR HEMOGLOBIN 27.9 pg (27.0-33.0); MEAN CORPUSCULAR HGB CONC 31.4 g/dl (32.0-36.5); PLATELET COUNT, AUTOMATED 253 10^3/uL (150-450); RED BLOOD COUNT 4.01 10^6/uL (4.30-6.10); WHITE BLOOD COUNT 12.9 10^3/uL (4.0-10.0)
[2022-09-01 08:01] LABS: BLOOD UREA NITROGEN 18 MG/DL (9-23); CALCIUM LEVEL 8.3 MG/DL (8.3-10.6); CARBON DIOXIDE LEVEL 25 MMOL/L (20-31); CHLORIDE LEVEL 102 MMOL/L (98-107); CREATININE FOR GFR 0.84 MG/DL (0.70-1.30); GLOMERULAR FILTRATION RATE > 60.0 (>42); GLUCOSE, FASTING 158 MG/DL (74-106); POTASSIUM SERUM 4.4 MMOL/L (3.5-5.1); SODIUM LEVEL 136 MMOL/L (136-145)
[2022-09-01] MEDS: CLOPIDOGREL 75 MG TAB PO SCH (08:41)
[2022-09-01] MEDS: AMITRIPTYLINE 25MG TABLET PO SCH (08:41)
[2022-09-01] MEDS: DULoxetine 30MG CAPSULE (CYMBALTA) PO SCH (08:41)
[2022-09-01] MEDS: GABAPENTIN 300 MG CAP PO SCH ×3 (08:41→21:10)
[2022-09-01] MEDS: atenoloL 25 MG TAB PO SCH (08:42)
[2022-09-01] MEDS: ASPIRIN 81MG ENTERIC TABLET PO SCH (08:42)
[2022-09-01] MEDS: ATORVASTATIN 20 MG TAB PO SCH (08:42)
[2022-09-01] MEDS: INSULIN LISPRO (NovoLOG) PER UNIT SC SCH ×4 (08:43→21:00)
[2022-09-01 10:00] VITALS: BP 117/81
[2022-09-01 14:00] VITALS: BP 106/59
[2022-09-01 18:00] VITALS: BP 138/66
[2022-09-01] MEDS: ONDANSETRON 4MG TAB PO PRN (18:12)
[2022-09-01 22:00] VITALS: BP 114/55
[2022-09-02] MEDS: ACETAMINOPH W/CODEINE #3 TAB UD PO PRN ×5 (00:02→23:50)
[2022-09-02] MEDS: VANCOMYCIN HCL 1,000 MG, VIAL MATE ADAPTER 1 EACH in NS 250 ML IV SCH ×2 (00:47→12:09)
[2022-09-02 02:00] VITALS: BP 116/57
[2022-09-02 06:00] VITALS: BP 119/59
[2022-09-02 07:37] LABS: HEMATOCRIT 32.4 % (42.0-52.0); HEMOGLOBIN 10.3 g/dl (13.5-17.5); MEAN CORPUSCULAR HEMOGLOBIN 28.5 pg (27.0-33.0); MEAN CORPUSCULAR HGB CONC 31.8 g/dl (32.0-36.5); MEAN CORPUSCULAR VOLUME 89.5 fl (80.0-96.0); PLATELET COUNT, AUTOMATED 255 10^3/uL (150-450); RED BLOOD COUNT 3.62 10^6/uL (4.30-6.10); WHITE BLOOD COUNT 10.5 10^3/uL (4.0-10.0)
[2022-09-02 07:55] LABS: BLOOD UREA NITROGEN 15 MG/DL (9-23); CALCIUM LEVEL 8.3 MG/DL (8.3-10.6); CARBON DIOXIDE LEVEL 26 MMOL/L (20-31); CHLORIDE LEVEL 105 MMOL/L (98-107); GLOMERULAR FILTRATION RATE > 60.0 (>42); GLUCOSE, FASTING 164 MG/DL (74-106); POTASSIUM SERUM 4.4 MMOL/L (3.5-5.1); SODIUM LEVEL 137 MMOL/L (136-145)
[2022-09-02] MEDS: INSULIN LISPRO (NovoLOG) PER UNIT SC SCH ×4 (08:09→21:00)
[2022-09-02] MEDS: AMITRIPTYLINE 25MG TABLET PO SCH (08:09)
[2022-09-02] MEDS: ATORVASTATIN 20 MG TAB PO SCH (08:10)
[2022-09-02] MEDS: DULoxetine 30MG CAPSULE (CYMBALTA) PO SCH (08:10)
[2022-09-02] MEDS: atenoloL 25 MG TAB PO SCH (08:10)
[2022-09-02] MEDS: CLOPIDOGREL 75 MG TAB PO SCH (08:10)
[2022-09-02] MEDS: ASPIRIN 81MG ENTERIC TABLET PO SCH (08:10)
[2022-09-02] MEDS: GABAPENTIN 300 MG CAP PO SCH ×3 (08:10→20:56)
[2022-09-02 14:00] VITALS: BP 110/57
[2022-09-02] MEDS: HEPARIN SOD (PORCINE) 5000UNITS/ML 1ML VIAL/SYRINGE SQ SCH ×2 (15:07→20:56)
[2022-09-02 18:00] VITALS: BP 125/63
[2022-09-02 21:48] VITALS: BP 124/62
[2022-09-03] MEDS: VANCOMYCIN HCL 1,000 MG, VIAL MATE ADAPTER 1 EACH in NS 250 ML IV SCH (00:38)
[2022-09-03 02:00] VITALS: BP 130/62
[2022-09-03] MEDS: HEPARIN SOD (PORCINE) 5000UNITS/ML 1ML VIAL/SYRINGE SQ SCH ×2 (05:22→14:00)
[2022-09-03 05:28] VITALS: BP 134/64
[2022-09-03 06:24] LABS: HEMATOCRIT 32.9 % (42.0-52.0); HEMOGLOBIN 10.3 g/dl (13.5-17.5); MEAN CORPUSCULAR HEMOGLOBIN 28.3 pg (27.0-33.0); MEAN CORPUSCULAR HGB CONC 31.3 g/dl (32.0-36.5); MEAN CORPUSCULAR VOLUME 90.4 fl (80.0-96.0); PLATELET COUNT, AUTOMATED 291 10^3/uL (150-450); RED BLOOD COUNT 3.64 10^6/uL (4.30-6.10); WHITE BLOOD COUNT 6.7 10^3/uL (4.0-10.0)
[2022-09-03 06:47] LABS: BLOOD UREA NITROGEN 14 MG/DL (9-23); CALCIUM LEVEL 8.6 MG/DL (8.3-10.6); CARBON DIOXIDE LEVEL 25 MMOL/L (20-31); CHLORIDE LEVEL 106 MMOL/L (98-107); CREATININE FOR GFR 0.82 MG/DL (0.70-1.30); GLOMERULAR FILTRATION RATE > 60.0 (>42); GLUCOSE, FASTING 161 MG/DL (74-106); POTASSIUM SERUM 4.4 MMOL/L (3.5-5.1); SODIUM LEVEL 138 MMOL/L (136-145)
[2022-09-03 08:23] VITALS: BP 134/64
[2022-09-03] MEDS: atenoloL 25 MG TAB PO SCH (08:23)
[2022-09-03] MEDS: GABAPENTIN 300 MG CAP PO SCH (08:23)
[2022-09-03] MEDS: CLOPIDOGREL 75 MG TAB PO SCH (08:23)
[2022-09-03] MEDS: DULoxetine 30MG CAPSULE (CYMBALTA) PO SCH (08:23)
[2022-09-03] MEDS: ASPIRIN 81MG ENTERIC TABLET PO SCH (08:23)
[2022-09-03] MEDS: INSULIN LISPRO (NovoLOG) PER UNIT SC SCH ×3 (08:24→12:22)
[2022-09-03] MEDS: ATORVASTATIN 20 MG TAB PO SCH (08:24)
[2022-09-03] MEDS: AMITRIPTYLINE 25MG TABLET PO SCH (08:24)
[2022-09-03] MEDS: ACETAMINOPH W/CODEINE #3 TAB UD PO PRN (08:24)
[2022-09-03] MEDS ORDERED: ATOR1TAB21 PO (09:09)
[2022-09-03] MEDS ORDERED: OXYC-517 PO (09:09)
[2022-09-03] MEDS ORDERED: ACET1TAB55 PO (09:09)
[2022-09-03] MEDS ORDERED: LINE1TAB6 PO (09:19)
[2022-09-03] MEDS ORDERED: LINEZOLID 600MG TABLET (ZYVOX) PO ONE (09:20)
[2022-09-03 10:00] VITALS: BP 119/57
[2022-09-03] MEDS ORDERED: AMOX875T2 PO (10:42)
[2022-09-03] MEDS ORDERED: KETO10TAB PO (10:48)
[2022-09-03] MEDS ORDERED: AUGMENTIN 875 MG TAB PO ONE (11:00)
[2022-09-03 14:00] VITALS: BP 124/60
== END 2022-09-03 14:41 | disposition home health service (06) | DRG 504 ==
LOC: M MSPAV 11:54
PROVIDERS: ADMIT Internal Medicine Nephrology; ATTEND Family Medicine
PROC: 0Y6Q0Z0 Detachment at Left 1st Toe, Complete, Open Approach (ICD-10-PCS; principal; 2022-08-31 13:40)
DX: T87.89 Other complications of amputation stump (principal); L03.116 Cellulitis of left lower limb; M86.172 Other acute osteomyelitis, left ankle and foot; E11.40 Type 2 diabetes mellitus with diabetic neuropathy, unspecified; I10 Essential (primary) hypertension; I25.10 Atherosclerotic heart disease of native coronary artery without angina pectoris; Z66 Do not resuscitate; B95.0 Streptococcus, group A, as the cause of diseases classified elsewhere; E11.621 Type 2 diabetes mellitus with foot ulcer; E11.51 Type 2 diabetes mellitus with diabetic peripheral angiopathy without gangrene; R51.9 Headache, unspecified; B95.61 Methicillin susceptible Staphylococcus aureus infection as the cause of diseases classified elsewhere; F12.10 Cannabis abuse, uncomplicated; L97.529 Non-pressure chronic ulcer of other part of left foot with unspecified severity; F32.A Depression, unspecified; B97.29 Other coronavirus as the cause of diseases classified elsewhere; I70.245 Atherosclerosis of native arteries of left leg with ulceration of other part of foot; F41.9 Anxiety disorder, unspecified; Z95.5 Presence of coronary angioplasty implant and graft; E11.69 Type 2 diabetes mellitus with other specified complication; I25.2 Old myocardial infarction; E78.2 Mixed hyperlipidemia; Z79.82 Long term (current) use of aspirin; Z79.84 Long term (current) use of oral hypoglycemic drugs; Z79.899 Other long term (current) drug therapy; Z79.02 Long term (current) use of antithrombotics/antiplatelets; Z88.8 Allergy status to other drugs, medicaments and biological substances

== ENCOUNTER 2022-09-03 14:42 | Outpatient (CLI) | payer MEDICARE ==
[~2022-09-03 14:42] MED LIST changes: +ACET1TAB55 PO; +AMOX875T2 PO; +CLOP75TA99 PO; +KETO10TAB PO; +LINE1TAB6 PO; +OXYC-517 PO
[2022-09-03] MEDS ORDERED: DALBAVANCIN 1,500 MG in D5W 250 ML IV ONE (16:00)
== END 2022-09-03 17:16 | disposition home or self-care (01) ==
LOC: M MSPAV 14:42 → M OPCLI4PV 14:42
PROVIDERS: ATTEND Family Medicine
DX: M86.9 Osteomyelitis, unspecified (principal); Z88.1 Allergy status to other antibiotic agents
CPT/HCPCS: 96365; J0875

== ENCOUNTER → 2023-05-16 | Outpatient (CLI) | payer MEDICARE ==
[~2023-05-16] MED LIST changes: -AMIT25TA17 PO; +AMIT25TA19 PO
[2023-05-16 10:29] LABS: BASO # 0.1 10^3/uL (0.0-0.2); BASO % 0.7 % (0.0-1.0); EOS # 0.5 10^3/uL (0.0-0.5); EOS % 5.6 % (0.0-3.0); HEMOGLOBIN 12.7 g/dl (13.5-17.5); LYMPH # 1.7 10^3/uL (1.5-5.0); MEAN CORPUSCULAR HEMOGLOBIN 29.7 pg (27.0-33.0); MEAN CORPUSCULAR HGB CONC 32.6 g/dl (32.0-36.5); MEAN CORPUSCULAR VOLUME 91.1 fl (80.0-96.0); MONO # 0.6 10^3/uL (0.0-0.8); MONO % 6.6 % (2.0-8.0); NEUTROPHILS # 6.1 10^3/uL (1.5-8.5); NEUTROPHILS % 66.9 % (36.0-66.0); PLATELET COUNT, AUTOMATED 226 10^3/uL (150-450); RED BLOOD COUNT 4.28 10^6/uL (4.30-6.10); WHITE BLOOD COUNT 9.1 10^3/uL (4.0-10.0)
[2023-05-16 10:53] LABS: HEMOGLOBIN A1c 9.6 % (4.0-6.0)
[2023-05-16 11:04] LABS: ALBUMIN 3.6 G/DL (3.2-5.2); ALKALINE PHOSPHATASE 69 U/L (46-116); ALT/SGPT 24 U/L (7.0-40); AST/SGOT 15 U/L (<34); BILIRUBIN,TOTAL 0.4 MG/DL (0.3-1.2); BLOOD UREA NITROGEN 28 MG/DL (9-23); CALCIUM LEVEL 9.7 MG/DL (8.3-10.6); CARBON DIOXIDE LEVEL 27 MMOL/L (20-31); CHLORIDE LEVEL 106 MMOL/L (98-107); CHOLESTEROL LEVEL 133 MG/DL (<200); CHOLESTEROL RISK RATIO 3.32 (<5); CREATININE FOR GFR 1.08 MG/DL (0.70-1.30); GLOMERULAR FILTRATION RATE > 60.0 (>42); GLUCOSE, FASTING 333 MG/DL (74-106); POTASSIUM SERUM 5.4 MMOL/L (3.5-5.1); SODIUM LEVEL 139 MMOL/L (136-145); TOTAL PROTEIN 6.2 G/DL (5.7-8.2); TRIGLYCERIDES LEVEL 200 MG/DL (<150)
== END ==
LOC: M LAB 09:42
PROVIDERS: ATTEND Family Medicine
DX: E11.40 Type 2 diabetes mellitus with diabetic neuropathy, unspecified (principal)

== ENCOUNTER → 2023-10-17 | Outpatient (CLI) | payer MEDICARE ==
[2023-10-17 11:21] LABS: HEMATOCRIT 38.9 % (42.0-52.0); HEMOGLOBIN 12.5 g/dl (13.5-17.5); MEAN CORPUSCULAR HEMOGLOBIN 29.2 pg (27.0-33.0); MEAN CORPUSCULAR HGB CONC 32.1 g/dl (32.0-36.5); MEAN CORPUSCULAR VOLUME 90.9 fl (80.0-96.0); PLATELET COUNT, AUTOMATED 213 10^3/uL (150-450); RED BLOOD COUNT 4.28 10^6/uL (4.30-6.10); WHITE BLOOD COUNT 9.3 10^3/uL (4.0-10.0)
[2023-10-17 11:30] LABS: INR 1.02; PARTIAL THROMBOPLASTIN TIME 26.8 SECONDS (24.8-34.2); PROTHROMBIN TIME 13.1 SECONDS (12.5-14.5)
[2023-10-17 11:37] LABS: BLOOD UREA NITROGEN 20 MG/DL (9-23); CALCIUM LEVEL 9.2 MG/DL (8.3-10.6); CARBON DIOXIDE LEVEL 27 MMOL/L (20-31); CHLORIDE LEVEL 106 MMOL/L (98-107); CREATININE FOR GFR 0.94 MG/DL (0.70-1.30); GLOMERULAR FILTRATION RATE > 60.0 (>42); GLUCOSE, FASTING 313 MG/DL (74-106); POTASSIUM SERUM 4.7 MMOL/L (3.5-5.1); SODIUM LEVEL 139 MMOL/L (136-145)
== END ==
LOC: M LAB 10:25
PROVIDERS: ATTEND Physician Assistant
DX: Z01.818 Encounter for other preprocedural examination (principal); Z79.01 Long term (current) use of anticoagulants

== ENCOUNTER → 2023-11-15 | Outpatient (REF) | payer MEDICARE | LOC: M LAB REF 16:44 | PROVIDERS: ATTEND Podiatrist Foot & Ankle Surgery | DX: L03.116 Cellulitis of left lower limb (principal) ==

== ENCOUNTER → 2024-01-17 | Outpatient (CLI) | payer MEDICARE ==
[2024-01-17 11:36] LABS: HEMATOCRIT 36.4 % (42.0-52.0); HEMOGLOBIN 12.1 g/dl (13.5-17.5); MEAN CORPUSCULAR HEMOGLOBIN 29.2 pg (27.0-33.0); MEAN CORPUSCULAR HGB CONC 33.2 g/dl (32.0-36.5); MEAN CORPUSCULAR VOLUME 87.9 fl (80.0-96.0); PLATELET COUNT, AUTOMATED 256 10^3/uL (150-450); RED BLOOD COUNT 4.14 10^6/uL (4.30-6.10); WHITE BLOOD COUNT 8.2 10^3/uL (4.0-10.0)
[2024-01-17 11:54] LABS: INR 1.05; PARTIAL THROMBOPLASTIN TIME 27.8 SECONDS (24.8-34.2); PROTHROMBIN TIME 13.4 SECONDS (12.5-14.5)
[2024-01-17 11:59] LABS: BLOOD UREA NITROGEN 29 MG/DL (9-23); CALCIUM LEVEL 9.9 MG/DL (8.3-10.6); CARBON DIOXIDE LEVEL 27 MMOL/L (20-31); CHLORIDE LEVEL 106 MMOL/L (98-107); CREATININE FOR GFR 1.14 MG/DL (0.70-1.30); GLOMERULAR FILTRATION RATE > 60.0 (>42); GLUCOSE, FASTING 330 MG/DL (74-106); POTASSIUM SERUM 4.8 MMOL/L (3.5-5.1); SODIUM LEVEL 137 MMOL/L (136-145)
== END ==
LOC: M LAB 10:25
PROVIDERS: ATTEND Physician Assistant
DX: Z01.818 Encounter for other preprocedural examination (principal); D69.8 Other specified hemorrhagic conditions

== ENCOUNTER → 2024-07-31 | Outpatient (POV) | payer MEDICARE ==
[~2024-07-31] VITALS: Ht 177.8 cm; Wt 102.3 kg
[~2024-07-31] MED LIST changes: +GABA-1172 PO; -GABA-282 PO; +GLIP-318 PO; +GLIP-320 PO; -GLIP10TA18 PO; -GLIP5TAB20 PO; -LEVO750T14 PO; +LEVO75TAB PO
[2024-07-31 13:35] VITALS: BP 112/68; O2SAT 99
== END ==
LOC: M IRPOV 15:15
PROVIDERS: ATTEND Radiology Diagnostic Radiology
DX: I70.235 Atherosclerosis of native arteries of right leg with ulceration of other part of foot (principal); L97.519 Non-pressure chronic ulcer of other part of right foot with unspecified severity; I25.2 Old myocardial infarction; Z89.412 Acquired absence of left great toe; Z79.82 Long term (current) use of aspirin; Z79.84 Long term (current) use of oral hypoglycemic drugs; Z79.899 Other long term (current) drug therapy; Z88.1 Allergy status to other antibiotic agents; Z95.828 Presence of other vascular implants and grafts

== ENCOUNTER → 2024-08-02 | Outpatient (CLI) | payer MEDICARE | LOC: M RAD 08:43 | PROVIDERS: ATTEND Podiatrist Foot & Ankle Surgery | DX: I73.89 Other specified peripheral vascular diseases (principal) ==

== ENCOUNTER 2024-09-04 09:31 | Inpatient (IN) | payer MEDICARE ==
[~2024-09-04] VITALS: Ht 175.3 cm; Wt 106.8 kg
[~2024-09-04 09:31] MED LIST changes: +AMITRIPTYLINE 25MG TABLET PO SCH; -FLOM0.4C39 PO; +TAMS-18 PO
[2024-09-04 10:43] LABS: BASO # 0.1 10^3/uL (0.0-0.2); BASO % 0.4 % (0.0-1.0); HEMATOCRIT 34.9 % (42.0-52.0); HEMOGLOBIN 11.5 g/dl (13.5-17.5); LYMPH # 0.8 10^3/uL (1.5-5.0); LYMPH % 3.9 % (24.0-44.0); MEAN CORPUSCULAR VOLUME 88.1 fl (80.0-96.0); MONO # 1.5 10^3/uL (0.0-0.8); NEUTROPHILS # 18.8 10^3/uL (1.5-8.5); NEUTROPHILS % 88.1 % (36.0-66.0); PLATELET COUNT, AUTOMATED 415 10^3/uL (150-450); RED BLOOD COUNT 3.96 10^6/uL (4.30-6.10); WHITE BLOOD COUNT 21.3 10^3/uL (4.0-10.0)
[2024-09-04] MEDS: ONDANSETRON 4MG 2ML VIAL IV ONE (10:46)
[2024-09-04] MEDS: NS (Normal Saline) 0.9% 1,000 ML IV SCH (10:46)
[2024-09-04 10:54] LABS: ERYTHROCYTE SEDIMENTATION RATE 86 mm/hr (0-20)
[2024-09-04 11:24] LABS: C REACTIVE PROTEIN QUANTITATIV 14.9 MG/DL (<1.0); CALCIUM LEVEL 8.9 MG/DL (8.3-10.6); CREATININE FOR GFR 0.99 MG/DL (0.70-1.30); GLOMERULAR FILTRATION RATE 80.9 (>42); POTASSIUM SERUM 5.4 MMOL/L (3.5-5.1)
[2024-09-04] MEDS: VANCOMYCIN HCL 2,000 MG, VIAL MATE ADAPTER 1 EACH in NS 500 ML IV ONE (11:47)
[2024-09-04] MEDS: HumuLIN R (REGULAR) INSULIN (NovoLIN R) **100U/ML** PER UNIT IV ONE (11:48)
[2024-09-04] MEDS ORDERED: VANCOMYCIN HCL 1,000 MG, VIAL MATE ADAPTER 1 EACH in NS 250 ML IV SCH (11:50)
[2024-09-04] MEDS ORDERED: CEFEPIME HCL 1 GM in DEXTROSE 5% (D5W) ADV/MINI-BAG 50 ML IV SCH (11:50)
[2024-09-04] MEDS ORDERED: GLUCAGON INJ 1MG VIAL SC PRN (12:05)
[2024-09-04] MEDS ORDERED: GLUCOSE 4 GM CHEW PO PRN (12:05)
[2024-09-04] MEDS ORDERED: DEXTROSE 50% 50ML SYRINGE IV PRN (12:05)
[2024-09-04 12:29] LABS: ACETONE/KETONE 0.34 MMOL/L (0.02-0.27)
[2024-09-04] MEDS ORDERED: NALOXONE INJ 0.4MG/1ML VIAL IV PRN (13:00)
[2024-09-04 13:10] LABS: HEMOGLOBIN A1c 11.9 % (4.0-6.0)
[2024-09-04] MEDS ORDERED: ATOR80TA59 PO (13:10)
[2024-09-04] MEDS ORDERED: CLOP75TA2 PO (13:11)
[2024-09-04] MEDS: LanTUS (INSULIN GLARGINE INJ) 1 UNITS/0.01 ML SC ONE (13:14)
[2024-09-04] MEDS: LACTOBACILLUS ACIDOPHILUS CAP (BACID) PO SCH (13:14)
[2024-09-04] MEDS: INSULIN LISPRO (NovoLOG) PER UNIT SC STA ×2 (13:15→15:38)
[2024-09-04] MEDS ORDERED: HOME MED LIST COMPLETE! XX SCH (13:15)
[2024-09-04 14:22] LABS: CALCIUM LEVEL 8.8 MG/DL (8.3-10.6); CREATININE FOR GFR 1.04 MG/DL (0.70-1.30); GLOMERULAR FILTRATION RATE 76.3 (>42); POTASSIUM SERUM 4.8 MMOL/L (3.5-5.1)
[2024-09-04] MEDS ORDERED: LanTUS (INSULIN GLARGINE INJ) 1 UNITS/0.01 ML SC ONE (14:25)
[2024-09-04] MEDS: LR 2,000 ML IV ONE (14:55)
[2024-09-04] MEDS: cefTRIAXone SOD 2 GM in DEXTROSE 5% (D5W) ADV/MINI-BAG 50 ML IV ONE (14:55)
[2024-09-04] MEDS: LR 1,000 ML IV ONE (15:17)
[2024-09-04 15:21] VITALS: BP 132/62; TEMP 98.1; O2SAT 92
[2024-09-04] MEDS: CALCIUM GLUCONATE 1,000 MG in DEXTROSE 5% (D5W) MINI-BAG PLU 100 ML IV ONE (15:33)
[2024-09-04] MEDS: PATIROMER SORBITEX CALCIUM 8.4 GM POWDER PACKET (VELTASSA) PO ONE (15:36)
[2024-09-04] MEDS: atenoloL 25 MG TAB PO ONE (15:37)
[2024-09-04] MEDS: CEFEPIME HCL 2 GM in DEXTROSE 5% (D5W) ADV/MINI-BAG 50 ML IV SCH (16:23)
[2024-09-04] MEDS ORDERED: INSULIN LISPRO (NovoLOG) PER UNIT SC SCH (17:30)
[2024-09-04] MEDS: INSULIN LISPRO (NovoLOG) PER UNIT SC SCH ×2 (17:30→20:29)
[2024-09-04] MEDS: LR 1,000 ML IV SCH ×2 (18:47→23:49)
[2024-09-04 19:35] LABS: CALCIUM LEVEL 8.8 MG/DL (8.3-10.6); CREATININE FOR GFR 1.05 MG/DL (0.70-1.30); GLOMERULAR FILTRATION RATE 75.4 (>42); POTASSIUM SERUM 4.3 MMOL/L (3.5-5.1)
[2024-09-04 19:45] VITALS: BP 127/65; TEMP 97.7; O2SAT 96
[2024-09-04] MEDS: PERCOCET 5MG/325MG TAB PO PRN (20:44)
[2024-09-04] MEDS: VANCOMYCIN HCL 1,000 MG, VIAL MATE ADAPTER 1 EACH in NS 250 ML IV SCH (20:44)
[2024-09-04] MEDS ORDERED: LanTUS (INSULIN GLARGINE INJ) 1 UNITS/0.01 ML SC SCH (21:00)
[2024-09-04] MEDS ORDERED: D5W 1,000 ML IV ONE (21:50)
[2024-09-04 21:57] LABS: CALCIUM LEVEL 8.6 MG/DL (8.3-10.6); CREATININE FOR GFR 1.02 MG/DL (0.70-1.30); GLOMERULAR FILTRATION RATE 78.1 (>42); POTASSIUM SERUM 4.3 MMOL/L (3.5-5.1)
[2024-09-05 03:43] VITALS: BP 145/71; TEMP 97; O2SAT 97
[2024-09-05 05:57] LABS: BASO # 0.1 10^3/uL (0.0-0.2); BASO % 0.3 % (0.0-1.0); EOS # 0.3 10^3/uL (0.0-0.5); EOS % 1.5 % (0.0-3.0); HEMATOCRIT 31.8 % (42.0-52.0); HEMOGLOBIN 10.5 g/dl (13.5-17.5); LYMPH # 1.7 10^3/uL (1.5-5.0); LYMPH % 9.9 % (24.0-44.0); MEAN CORPUSCULAR HEMOGLOBIN 29.2 pg (27.0-33.0); MEAN CORPUSCULAR VOLUME 88.6 fl (80.0-96.0); MONO # 1.1 10^3/uL (0.0-0.8); MONO % 6.5 % (2.0-8.0); NEUTROPHILS # 13.7 10^3/uL (1.5-8.5); NEUTROPHILS % 81.3 % (36.0-66.0); PLATELET COUNT, AUTOMATED 363 10^3/uL (150-450); RED BLOOD COUNT 3.59 10^6/uL (4.30-6.10); WHITE BLOOD COUNT 16.9 10^3/uL (4.0-10.0)
[2024-09-05 06:11] LABS: INR 1.06; PARTIAL THROMBOPLASTIN TIME 30.9 SECONDS (24.8-34.2); PROTHROMBIN TIME 14.1 SECONDS (12.5-14.5)
[2024-09-05 06:20] LABS: CALCIUM LEVEL 8.5 MG/DL (8.3-10.6); CHOLESTEROL RISK RATIO 3.97 (<5); CREATININE FOR GFR 1.14 MG/DL (0.70-1.30); GLOMERULAR FILTRATION RATE 68.3 (>42); HDL CHOLESTEROL 27.7 MG/DL (>40); LDL CHOLESTEROL 52.1 MG/DL (<100); NON-HDL-C 82.3 MG/DL; POTASSIUM SERUM 5.5 MMOL/L (3.5-5.1)
[2024-09-05] MEDS: AMITRIPTYLINE 25MG TABLET PO SCH (08:20)
[2024-09-05] MEDS: atenoloL 25 MG TAB PO SCH (08:20)
[2024-09-05] MEDS: DULoxetine 30MG CAPSULE (CYMBALTA) PO SCH (08:20)
[2024-09-05] MEDS: ATORVASTATIN 20 MG TAB PO SCH (08:20)
[2024-09-05] MEDS ORDERED: LanTUS (INSULIN GLARGINE INJ) 1 UNITS/0.01 ML SC SCH ×2 (09:00→21:00)
[2024-09-05] MEDS: fentaNYL 100 MCG/2 ML INJECTION IV PRN (10:44)
[2024-09-05] MEDS: MIDAZOLAM INJ 2MG/2ML VIAL IV PRN (10:45)
[2024-09-05] MEDS: NS (Normal Saline) 0.9% 1,000 ML IV SCH ×2 (10:45→12:15)
[2024-09-05] MEDS: HEPARIN 1,000UNITS/ML 10ML VIAL (FOR RADIOLOGY & DIALYSIS ONLY) IV PRN (11:05)
[2024-09-05] MEDS: ISOVUE-300 61% 100ML VIAL IV SCH (11:41)
[2024-09-05] MEDS: LIDOCAINE 1% MDV 20ML VIAL SC SCH (11:42)
[2024-09-05 12:55] VITALS: BP 130/74; TEMP 97.5; O2SAT 97
[2024-09-05] MEDS: VANCOMYCIN HCL 750 MG, VIAL MATE ADAPTER 1 EACH in NS 250 ML IV SCH (13:24)
[2024-09-05 13:25] VITALS: BP 127/67; TEMP 97.3; O2SAT 95
[2024-09-05 13:55] VITALS: BP 149/68; TEMP 97.2; O2SAT 97
[2024-09-05] MEDS: PATIROMER SORBITEX CALCIUM 8.4 GM POWDER PACKET (VELTASSA) PO ONE (16:47)
[2024-09-05] MEDS: CALCIUM GLUCONATE 1,000 MG in DEXTROSE 5% (D5W) MINI-BAG PLU 100 ML IV ONE (16:48)
[2024-09-05] MEDS: LanTUS (INSULIN GLARGINE INJ) 1 UNITS/0.01 ML SC ONE (16:48)
[2024-09-05 17:26] LABS: CALCIUM LEVEL 8.2 MG/DL (8.3-10.6); CREATININE FOR GFR 1.01 MG/DL (0.70-1.30); POTASSIUM SERUM 4.9 MMOL/L (3.5-5.1)
[2024-09-05] MEDS: INSULIN LISPRO (NovoLOG) PER UNIT SC SCH (17:51)
[2024-09-05 20:53] VITALS: BP 102/60; TEMP 97.5; O2SAT 97
[2024-09-06 05:02] VITALS: BP 141/96; TEMP 97.5; O2SAT 96
[2024-09-06 06:00] LABS: BASO # 0.1 10^3/uL (0.0-0.2); BASO % 0.4 % (0.0-1.0); EOS # 0.4 10^3/uL (0.0-0.5); EOS % 2.9 % (0.0-3.0); HEMATOCRIT 32.8 % (42.0-52.0); HEMOGLOBIN 10.6 g/dl (13.5-17.5); LYMPH # 1.5 10^3/uL (1.5-5.0); LYMPH % 11.4 % (24.0-44.0); MEAN CORPUSCULAR HGB CONC 32.3 g/dl (32.0-36.5); MEAN CORPUSCULAR VOLUME 89.6 fl (80.0-96.0); MONO # 0.8 10^3/uL (0.0-0.8); MONO % 5.8 % (2.0-8.0); NEUTROPHILS # 10.7 10^3/uL (1.5-8.5); NEUTROPHILS % 79.1 % (36.0-66.0); PLATELET COUNT, AUTOMATED 361 10^3/uL (150-450); RED BLOOD COUNT 3.66 10^6/uL (4.30-6.10); WHITE BLOOD COUNT 13.5 10^3/uL (4.0-10.0)
[2024-09-06 06:29] LABS: CALCIUM LEVEL 8.9 MG/DL (8.3-10.6); CREATININE FOR GFR 0.93 MG/DL (0.70-1.30); GLOMERULAR FILTRATION RATE 87.2 (>42); POTASSIUM SERUM 4.6 MMOL/L (3.5-5.1)
[2024-09-06] MEDS: LanTUS (INSULIN GLARGINE INJ) 1 UNITS/0.01 ML SC SCH (09:03)
[2024-09-06] MEDS: ONDANSETRON 4MG 2ML VIAL IV PRN (10:06)
[2024-09-06 11:08] VITALS: BP 135/92; TEMP 98.7; O2SAT 98
[2024-09-06] MEDS: LanTUS (INSULIN GLARGINE INJ) 1 UNITS/0.01 ML SC ONE (18:41)
[2024-09-06] MEDS: KETOROLAC 30 MG/ML 1ML VIAL IV ONE (18:46)
[2024-09-06] MEDS: PERCOCET 5MG/325MG TAB PO ONE (18:47)
[2024-09-06] MEDS ORDERED: SODIUM CHLORIDE 0.9% INJ 10 ML SYR IV PRN (18:50)
[2024-09-06 20:35] VITALS: BP 123/69; TEMP 96.8; O2SAT 96
[2024-09-07] MEDS: SODIUM CHLORIDE 0.9% INJ 10 ML SYR IV SCH (05:06)
[2024-09-07 05:40] VITALS: BP 186/96; TEMP 96.8; O2SAT 96
[2024-09-07 07:49] LABS: BASO # 0.1 10^3/uL (0.0-0.2); BASO % 0.3 % (0.0-1.0); EOS % 0.1 % (0.0-3.0); HEMATOCRIT 35.5 % (42.0-52.0); HEMOGLOBIN 11.5 g/dl (13.5-17.5); LYMPH # 0.6 10^3/uL (1.5-5.0); LYMPH % 3.7 % (24.0-44.0); MEAN CORPUSCULAR HGB CONC 32.4 g/dl (32.0-36.5); MEAN CORPUSCULAR VOLUME 89.6 fl (80.0-96.0); MONO # 0.7 10^3/uL (0.0-0.8); MONO % 4.1 % (2.0-8.0); NEUTROPHILS # 14.6 10^3/uL (1.5-8.5); NEUTROPHILS % 91.1 % (36.0-66.0); PLATELET COUNT, AUTOMATED 417 10^3/uL (150-450); RED BLOOD COUNT 3.96 10^6/uL (4.30-6.10)
[2024-09-07 08:12] LABS: CALCIUM LEVEL 8.7 MG/DL (8.3-10.6); CREATININE FOR GFR 1.07 MG/DL (0.70-1.30); GLOMERULAR FILTRATION RATE 73.7 (>42); POTASSIUM SERUM 5.1 MMOL/L (3.5-5.1)
[2024-09-07] MEDS: LanTUS (INSULIN GLARGINE INJ) 1 UNITS/0.01 ML SC SCH (09:08)
[2024-09-07] MEDS: PERCOCET 5MG/325MG TAB PO ONE (11:13)
[2024-09-07 12:00] VITALS: BP 135/67; TEMP 97.5
[2024-09-07] MEDS: LanTUS (INSULIN GLARGINE INJ) 1 UNITS/0.01 ML SC ONE (16:35)
[2024-09-07 20:06] VITALS: BP 156/76; TEMP 97; O2SAT 95
[2024-09-08 05:16] VITALS: BP 144/74; TEMP 97.1; O2SAT 94
[2024-09-08] MEDS: PERCOCET 5MG/325MG TAB PO ONE (07:03)
[2024-09-08 08:07] LABS: BASO # 0.1 10^3/uL (0.0-0.2); BASO % 0.4 % (0.0-1.0); EOS # 0.2 10^3/uL (0.0-0.5); HEMATOCRIT 32.3 % (42.0-52.0); HEMOGLOBIN 10.2 g/dl (13.5-17.5); LYMPH % 6.9 % (24.0-44.0); MEAN CORPUSCULAR HEMOGLOBIN 28.4 pg (27.0-33.0); MEAN CORPUSCULAR HGB CONC 31.6 g/dl (32.0-36.5); MONO # 0.7 10^3/uL (0.0-0.8); MONO % 5.1 % (2.0-8.0); NEUTROPHILS # 12.4 10^3/uL (1.5-8.5); NEUTROPHILS % 86.1 % (36.0-66.0); PLATELET COUNT, AUTOMATED 334 10^3/uL (150-450); RED BLOOD COUNT 3.59 10^6/uL (4.30-6.10); WHITE BLOOD COUNT 14.4 10^3/uL (4.0-10.0)
[2024-09-08 08:29] LABS: VANCOMYCIN LEVEL TROUGH 11.9 UG/ML (10.0-20.0)
[2024-09-08] MEDS: LanTUS (INSULIN GLARGINE INJ) 1 UNITS/0.01 ML SC SCH (08:34)
[2024-09-08 08:37] LABS: BLOOD UREA NITROGEN 25 MG/DL (9-23); CALCIUM LEVEL 7.5 MG/DL (8.3-10.6); CARBON DIOXIDE LEVEL 22 MMOL/L (20-31); CHLORIDE LEVEL 104 MMOL/L (98-107); CREATININE FOR GFR 0.86 MG/DL (0.70-1.30); GLOMERULAR FILTRATION RATE > 90.0 (>42); GLUCOSE, FASTING 270 MG/DL (74-106); POTASSIUM SERUM 4.7 MMOL/L (3.5-5.1); SODIUM LEVEL 137 MMOL/L (136-145)
[2024-09-08] MEDS: VANCOMYCIN HCL 1,000 MG, VIAL MATE ADAPTER 1 EACH in NS 250 ML IV SCH (09:23)
[2024-09-08 12:00] VITALS: BP 135/74; TEMP 97.3
[2024-09-08] MEDS: metroNIDAZOLE 500 MG in IV 1 EA IV SCH (18:10)
[2024-09-08 20:30] VITALS: BP 143/78; TEMP 98.2; O2SAT 94
[2024-09-09 04:00] VITALS: BP 162/83; TEMP 97.3; O2SAT 96
[2024-09-09 08:26] LABS: BASO # 0.1 10^3/uL (0.0-0.2); BASO % 0.4 % (0.0-1.0); EOS # 0.3 10^3/uL (0.0-0.5); HEMOGLOBIN 10.6 g/dl (13.5-17.5); LYMPH # 1.1 10^3/uL (1.5-5.0); LYMPH % 8.5 % (24.0-44.0); MEAN CORPUSCULAR HEMOGLOBIN 28.6 pg (27.0-33.0); MEAN CORPUSCULAR HGB CONC 32.1 g/dl (32.0-36.5); MEAN CORPUSCULAR VOLUME 89.2 fl (80.0-96.0); MONO # 0.8 10^3/uL (0.0-0.8); MONO % 5.9 % (2.0-8.0); NEUTROPHILS # 10.9 10^3/uL (1.5-8.5); NEUTROPHILS % 82.6 % (36.0-66.0); PLATELET COUNT, AUTOMATED 447 10^3/uL (150-450); WHITE BLOOD COUNT 13.2 10^3/uL (4.0-10.0)
[2024-09-09 08:44] LABS: BLOOD UREA NITROGEN 18 MG/DL (9-23); CALCIUM LEVEL 8.2 MG/DL (8.3-10.6); CARBON DIOXIDE LEVEL 25 MMOL/L (20-31); CHLORIDE LEVEL 106 MMOL/L (98-107); CREATININE FOR GFR 0.84 MG/DL (0.70-1.30); GLOMERULAR FILTRATION RATE > 90.0 (>42); GLUCOSE, FASTING 243 MG/DL (74-106); POTASSIUM SERUM 4.7 MMOL/L (3.5-5.1); SODIUM LEVEL 139 MMOL/L (136-145)
[2024-09-09] MEDS ORDERED: D5W/0.45% SODIUM CHLORIDE 1,000 ML IV SCH (10:20)
[2024-09-09] MEDS: ACETAMINOPHEN *IV* 1,000 MG in IV 1 EA IV ONE (11:14)
[2024-09-09] MEDS: MORPHINE 10 MG/ML 1ML VIAL IV ONE (11:15)
[2024-09-09 12:00] VITALS: BP 128/66; TEMP 97.2; O2SAT 94
[2024-09-09 20:01] VITALS: BP 154/78; TEMP 97.5; O2SAT 98
[2024-09-10] VITALS (7 sets, daily range): BP systolic 112–171; BP diastolic 56–131; TEMP 97–97.7; O2SAT 92–99
[2024-09-10] MEDS: NS 0.45% 1,000 ML IV SCH (05:15)
[2024-09-10 06:43] LABS: BASO # 0.1 10^3/uL (0.0-0.2); BASO % 0.6 % (0.0-1.0); EOS # 0.6 10^3/uL (0.0-0.5); EOS % 5.1 % (0.0-3.0); HEMATOCRIT 30.9 % (42.0-52.0); LYMPH # 1.4 10^3/uL (1.5-5.0); LYMPH % 11.2 % (24.0-44.0); MEAN CORPUSCULAR HEMOGLOBIN 29.1 pg (27.0-33.0); MEAN CORPUSCULAR HGB CONC 32.4 g/dl (32.0-36.5); MEAN CORPUSCULAR VOLUME 89.8 fl (80.0-96.0); MONO # 0.8 10^3/uL (0.0-0.8); MONO % 6.7 % (2.0-8.0); NEUTROPHILS # 9.1 10^3/uL (1.5-8.5); NEUTROPHILS % 75.7 % (36.0-66.0); PLATELET COUNT, AUTOMATED 403 10^3/uL (150-450); RED BLOOD COUNT 3.44 10^6/uL (4.30-6.10)
[2024-09-10] MEDS: NS (Normal Saline) 0.9% 1,000 ML IV SCH (06:55)
[2024-09-10 07:08] LABS: BLOOD UREA NITROGEN 18 MG/DL (9-23); CALCIUM LEVEL 7.8 MG/DL (8.3-10.6); CARBON DIOXIDE LEVEL 23 MMOL/L (20-31); CHLORIDE LEVEL 108 MMOL/L (98-107); CREATININE FOR GFR 0.83 MG/DL (0.70-1.30); GLOMERULAR FILTRATION RATE > 90.0 (>42); GLUCOSE, FASTING 209 MG/DL (74-106); POTASSIUM SERUM 4.6 MMOL/L (3.5-5.1); SODIUM LEVEL 140 MMOL/L (136-145)
[2024-09-10] MEDS ORDERED: dexmedeTOMIDine (4MCG/ML)200MCG/50ML BTL (PRECEDEX) As Ordered ONE (07:21)
[2024-09-10] MEDS ORDERED: propofoL 200 MG/20 ML VIAL As Ordered ONE (07:21)
[2024-09-10] MEDS ORDERED: fentaNYL 100 MCG/2 ML INJECTION As Ordered ONE (07:21)
[2024-09-10] MEDS ORDERED: MIDAZOLAM INJ 2MG/2ML VIAL As Ordered ONE (07:22)
[2024-09-10] MEDS ORDERED: KETAMINE HCL 200MG/20ML VIAL As Ordered ONE (07:22)
[2024-09-10] MEDS: HEPARIN 1,000UNITS/ML 10ML VIAL (FOR RADIOLOGY & DIALYSIS ONLY) IV PRN (08:57)
[2024-09-10] MEDS ORDERED: HEPARIN 1,000UNITS/ML 10ML VIAL (FOR RADIOLOGY & DIALYSIS ONLY) As Ordered ONE (10:21)
[2024-09-10] MEDS: LIDOCAINE 1% MDV 20ML VIAL SC SCH (10:48)
[2024-09-10] MEDS: ISOVUE-300 61% 100ML VIAL IV SCH (10:54)
[2024-09-10] MEDS ORDERED: ACETAMINOPHEN 325 MG TAB PO PRN (11:05)
[2024-09-10] MEDS ORDERED: NS (Normal Saline) 0.9% 1,000 ML IV SCH (11:05)
[2024-09-10] MEDS ORDERED: diphenhydrAMINE 50MG/ML VIAL As Ordered ONE (11:40)
[2024-09-10] MEDS: diphenhydrAMINE 50MG/ML VIAL IV STA (11:58)
[2024-09-10] MEDS: HALOPERIDOL LACTATE 5MG/ML VIAL IV STA (11:59)
[2024-09-10] MEDS: VANCOMYCIN HCL 1,000 MG, VIAL MATE ADAPTER 1 EACH in NS 250 ML IV SCH (13:36)
[2024-09-10] MEDS: metroNIDAZOLE 500 MG in IV 1 EA IV SCH (16:02)
[2024-09-10] MEDS ORDERED: MIRALAX *UNIT DOSE* 17GM PACKET PO PRN (19:20)
[2024-09-10] MEDS ORDERED: BISACODYL 10MG SUPP PR PRN (19:20)
[2024-09-10] MEDS: SENOKOT S TAB PO SCH (20:59)
[2024-09-10] MEDS: RIVAROXABAN 2.5MG TABLET (XARELTO) PO SCH (21:57)
[2024-09-11 05:50] LABS: BASO # 0.1 10^3/uL (0.0-0.2); BASO % 0.5 % (0.0-1.0); EOS # 0.8 10^3/uL (0.0-0.5); EOS % 5.5 % (0.0-3.0); HEMATOCRIT 33.9 % (42.0-52.0); HEMOGLOBIN 10.8 g/dl (13.5-17.5); MEAN CORPUSCULAR HEMOGLOBIN 28.4 pg (27.0-33.0); MEAN CORPUSCULAR HGB CONC 31.9 g/dl (32.0-36.5); MEAN CORPUSCULAR VOLUME 89.2 fl (80.0-96.0); MONO % 6.4 % (2.0-8.0); NEUTROPHILS # 11.2 10^3/uL (1.5-8.5); NEUTROPHILS % 73.6 % (36.0-66.0); PLATELET COUNT, AUTOMATED 492 10^3/uL (150-450); WHITE BLOOD COUNT 15.3 10^3/uL (4.0-10.0)
[2024-09-11 05:56] VITALS: BP 150/80; TEMP 97.3; O2SAT 97
[2024-09-11 06:21] LABS: BLOOD UREA NITROGEN 15 MG/DL (9-23); CALCIUM LEVEL 8.4 MG/DL (8.3-10.6); CARBON DIOXIDE LEVEL 23 MMOL/L (20-31); CHLORIDE LEVEL 106 MMOL/L (98-107); CREATININE FOR GFR 0.86 MG/DL (0.70-1.30); GLOMERULAR FILTRATION RATE > 90.0 (>42); GLUCOSE, FASTING 218 MG/DL (74-106); POTASSIUM SERUM 4.4 MMOL/L (3.5-5.1); SODIUM LEVEL 138 MMOL/L (136-145)
[2024-09-11] MEDS: ASPIRIN 81MG ENTERIC TABLET PO SCH (08:50)
[2024-09-11 12:00] VITALS: TEMP 97.3; O2SAT 97
[2024-09-11] MEDS: PERCOCET 5MG/325MG TAB PO PRN (13:58)
[2024-09-11 20:48] VITALS: BP 138/76; TEMP 97.3; O2SAT 96
[2024-09-12] VITALS (9 sets, daily range): BP systolic 95–181; BP diastolic 59–89; TEMP 97.2–97.5; O2SAT 93–98
[2024-09-12] MEDS: INSULIN LISPRO (NovoLOG) PER UNIT SC SCH (08:41)
[2024-09-12] MEDS: LanTUS (INSULIN GLARGINE INJ) 1 UNITS/0.01 ML SC SCH (09:00)
[2024-09-12] MEDS ORDERED: LIDOCAINE 2% 100MG/5ML SDV (FOR ANES.) As Ordered ONE (11:40)
[2024-09-12] MEDS ORDERED: ONDANSETRON 4MG 2ML VIAL IV PRN (12:05)
[2024-09-12] MEDS ORDERED: fentaNYL 100 MCG/2 ML INJECTION IV PRN (12:05)
[2024-09-12] MEDS: LIDOCAINE 1% SDV 30ML VIAL As Ordered ONE (12:08)
[2024-09-13] VITALS: BP 152/78; TEMP 97.2; O2SAT 97
[2024-09-13 05:19] VITALS: BP 151/78; TEMP 97.3; O2SAT 96
[2024-09-13 06:46] LABS: BASO # 0.1 10^3/uL (0.0-0.2); BASO % 0.4 % (0.0-1.0); EOS # 0.4 10^3/uL (0.0-0.5); EOS % 2.7 % (0.0-3.0); HEMATOCRIT 30.3 % (42.0-52.0); HEMOGLOBIN 9.9 g/dl (13.5-17.5); LYMPH # 1.5 10^3/uL (1.5-5.0); LYMPH % 9.8 % (24.0-44.0); MEAN CORPUSCULAR HEMOGLOBIN 29.2 pg (27.0-33.0); MEAN CORPUSCULAR HGB CONC 32.7 g/dl (32.0-36.5); MEAN CORPUSCULAR VOLUME 89.4 fl (80.0-96.0); MONO # 0.9 10^3/uL (0.0-0.8); MONO % 5.9 % (2.0-8.0); NEUTROPHILS # 12.6 10^3/uL (1.5-8.5); NEUTROPHILS % 80.1 % (36.0-66.0); PLATELET COUNT, AUTOMATED 402 10^3/uL (150-450); RED BLOOD COUNT 3.39 10^6/uL (4.30-6.10); WHITE BLOOD COUNT 15.7 10^3/uL (4.0-10.0)
[2024-09-13 07:15] LABS: BLOOD UREA NITROGEN 15 MG/DL (9-23); CALCIUM LEVEL 7.9 MG/DL (8.3-10.6); CARBON DIOXIDE LEVEL 26 MMOL/L (20-31); CHLORIDE LEVEL 106 MMOL/L (98-107); CREATININE FOR GFR 0.83 MG/DL (0.70-1.30); GLOMERULAR FILTRATION RATE > 90.0 (>42); GLUCOSE, FASTING 296 MG/DL (74-106); POTASSIUM SERUM 4.9 MMOL/L (3.5-5.1); SODIUM LEVEL 139 MMOL/L (136-145)
[2024-09-13] MEDS: CARBAMIDE PEROXIDE 6.5% OTIC SOLN 15ML AU SCH (10:57)
[2024-09-13 12:11] VITALS: BP 146/75; TEMP 97.1; O2SAT 99
[2024-09-13 19:25] VITALS: BP 147/74; TEMP 97.7; O2SAT 99
[2024-09-14 04:03] VITALS: BP 133/71; TEMP 97.3; O2SAT 97
[2024-09-14 06:07] LABS: BASO # 0.1 10^3/uL (0.0-0.2); BASO % 0.5 % (0.0-1.0); EOS # 0.8 10^3/uL (0.0-0.5); EOS % 5.8 % (0.0-3.0); HEMATOCRIT 34.6 % (42.0-52.0); LYMPH # 2.3 10^3/uL (1.5-5.0); LYMPH % 15.7 % (24.0-44.0); MEAN CORPUSCULAR HGB CONC 31.8 g/dl (32.0-36.5); MEAN CORPUSCULAR VOLUME 91.3 fl (80.0-96.0); MONO # 0.8 10^3/uL (0.0-0.8); MONO % 5.2 % (2.0-8.0); NEUTROPHILS # 10.4 10^3/uL (1.5-8.5); NEUTROPHILS % 71.6 % (36.0-66.0); PLATELET COUNT, AUTOMATED 439 10^3/uL (150-450); RED BLOOD COUNT 3.79 10^6/uL (4.30-6.10); WHITE BLOOD COUNT 14.5 10^3/uL (4.0-10.0)
[2024-09-14 06:38] LABS: BLOOD UREA NITROGEN 14 MG/DL (9-23); CALCIUM LEVEL 8.6 MG/DL (8.3-10.6); CARBON DIOXIDE LEVEL 29 MMOL/L (20-31); CHLORIDE LEVEL 105 MMOL/L (98-107); CREATININE FOR GFR 0.84 MG/DL (0.70-1.30); GLOMERULAR FILTRATION RATE > 90.0 (>42); GLUCOSE, FASTING 190 MG/DL (74-106); POTASSIUM SERUM 4.3 MMOL/L (3.5-5.1); SODIUM LEVEL 140 MMOL/L (136-145)
[2024-09-14 07:35] LABS: C REACTIVE PROTEIN QUANTITATIV 2.39 MG/DL (<1.0)
[2024-09-14 12:00] VITALS: BP 137/71; TEMP 97.7; O2SAT 96
[2024-09-14] MEDS: DOXYCYCLINE HYCLATE 100MG TABLET PO SCH (14:09)
[2024-09-14 19:51] VITALS: BP 164/91; TEMP 97.3; O2SAT 98
[2024-09-15 04:15] VITALS: BP 164/90; TEMP 97.3; O2SAT 97
[2024-09-15] MEDS: CEPHALEXIN 500 MG CAP PO SCH (08:56)
[2024-09-15] MEDS: PANTOPRAZOLE 40MG VIAL IV SCH (10:00)
[2024-09-15] MEDS: METOCLOPRAMIDE INJ 10MG/2ML VIAL IV SCH (10:00)
[2024-09-15 11:24] LABS: BASO # 0.1 10^3/uL (0.0-0.2); BASO % 0.4 % (0.0-1.0); EOS # 0.5 10^3/uL (0.0-0.5); EOS % 3.6 % (0.0-3.0); HEMATOCRIT 32.4 % (42.0-52.0); HEMOGLOBIN 10.3 g/dl (13.5-17.5); LYMPH # 1.8 10^3/uL (1.5-5.0); LYMPH % 14.1 % (24.0-44.0); MEAN CORPUSCULAR HEMOGLOBIN 28.7 pg (27.0-33.0); MEAN CORPUSCULAR HGB CONC 31.8 g/dl (32.0-36.5); MEAN CORPUSCULAR VOLUME 90.3 fl (80.0-96.0); MONO # 0.7 10^3/uL (0.0-0.8); MONO % 5.5 % (2.0-8.0); NEUTROPHILS # 9.8 10^3/uL (1.5-8.5); NEUTROPHILS % 75.2 % (36.0-66.0); PLATELET COUNT, AUTOMATED 436 10^3/uL (150-450); RED BLOOD COUNT 3.59 10^6/uL (4.30-6.10)
[2024-09-15 11:52] LABS: ALBUMIN 2.5 G/DL (3.2-5.2); ALKALINE PHOSPHATASE 108 U/L (40-129); ALT/SGPT 30 U/L (7.0-40); AST/SGOT 27 U/L (<34); BILIRUBIN,DIRECT 0.1 MG/DL (<0.4); BILIRUBIN,TOTAL 0.3 MG/DL (0.3-1.2); BLOOD UREA NITROGEN 12 MG/DL (9-23); CALCIUM LEVEL 8.3 MG/DL (8.3-10.6); CARBON DIOXIDE LEVEL 28 MMOL/L (20-31); CHLORIDE LEVEL 107 MMOL/L (98-107); CREATININE FOR GFR 0.86 MG/DL (0.70-1.30); GLOMERULAR FILTRATION RATE > 90.0 (>42); GLUCOSE, FASTING 214 MG/DL (74-106); POTASSIUM SERUM 4.5 MMOL/L (3.5-5.1); SODIUM LEVEL 140 MMOL/L (136-145); TOTAL PROTEIN 5.7 G/DL (5.7-8.2)
[2024-09-15 12:00] VITALS: BP 130/68; TEMP 96.4; O2SAT 96
[2024-09-15 19:26] VITALS: BP 128/59; TEMP 97.3; O2SAT 95
[2024-09-15] MEDS: RAMELTEON 8 MG TAB (ROZEREM) PO SCH (21:16)
[2024-09-16 04:09] VITALS: BP 152/81; TEMP 97.5; O2SAT 97
[2024-09-16 06:00] LABS: BASO # 0.1 10^3/uL (0.0-0.2); BASO % 0.8 % (0.0-1.0); EOS # 0.5 10^3/uL (0.0-0.5); EOS % 3.9 % (0.0-3.0); HEMATOCRIT 36.7 % (42.0-52.0); HEMOGLOBIN 11.6 g/dl (13.5-17.5); LYMPH # 2.2 10^3/uL (1.5-5.0); LYMPH % 18.7 % (24.0-44.0); MEAN CORPUSCULAR HEMOGLOBIN 28.8 pg (27.0-33.0); MEAN CORPUSCULAR HGB CONC 31.6 g/dl (32.0-36.5); MEAN CORPUSCULAR VOLUME 91.1 fl (80.0-96.0); MONO # 0.6 10^3/uL (0.0-0.8); MONO % 5.5 % (2.0-8.0); NEUTROPHILS # 8.1 10^3/uL (1.5-8.5); NEUTROPHILS % 69.8 % (36.0-66.0); PLATELET COUNT, AUTOMATED 426 10^3/uL (150-450); RED BLOOD COUNT 4.03 10^6/uL (4.30-6.10); WHITE BLOOD COUNT 11.6 10^3/uL (4.0-10.0)
[2024-09-16 06:24] LABS: BLOOD UREA NITROGEN 13 MG/DL (9-23); CARBON DIOXIDE LEVEL 27 MMOL/L (20-31); CHLORIDE LEVEL 107 MMOL/L (98-107); CREATININE FOR GFR 0.88 MG/DL (0.70-1.30); GLOMERULAR FILTRATION RATE > 90.0 (>42); GLUCOSE, FASTING 144 MG/DL (74-106); POTASSIUM SERUM 4.6 MMOL/L (3.5-5.1); SODIUM LEVEL 142 MMOL/L (136-145)
[2024-09-16] MEDS ORDERED: XARE2.5T PO (08:30)
[2024-09-16] MEDS ORDERED: DOCU8.6T PO (08:30)
[2024-09-16] MEDS ORDERED: RISATAB3 PO (08:30)
[2024-09-16] MEDS ORDERED: PERCOCET PO (08:30)
[2024-09-16] MEDS ORDERED: OMEP40CA5 PO (08:30)
[2024-09-16] MEDS ORDERED: METF850T4 PO (08:30)
[2024-09-16] MEDS ORDERED: CARBOT AU (08:30)
[2024-09-16] MEDS ORDERED: CEPH500C PO (08:30)
[2024-09-16 08:45] VITALS: BP 152/81
== END 2024-09-16 10:15 | disposition home or self-care (01) | DRG 854 ==
LOC: M ED 09:31 → M ED INP 11:46 → M MS5PR 15:03
PROVIDERS: ADMIT General Practice; ATTEND Internal Medicine Nephrology
PROC: B41FYZZ Fluoroscopy of Right Lower Extremity Arteries using Other Contrast (ICD-10-PCS; 2024-09-05)
PROC: 047R3DZ Dilation of Right Posterior Tibial Artery with Intraluminal Device, Percutaneous Approach (ICD-10-PCS; 2024-09-10)
PROC: 0Y6V0Z0 Detachment at Right 4th Toe, Complete, Open Approach (ICD-10-PCS; 2024-09-12)
PROC: 0Y6T0Z0 Detachment at Right 3rd Toe, Complete, Open Approach (ICD-10-PCS; principal; 2024-09-12 12:00)
DX: A41.9 Sepsis, unspecified organism (principal); E87.20 Acidosis, unspecified; E11.52 Type 2 diabetes mellitus with diabetic peripheral angiopathy with gangrene; L03.115 Cellulitis of right lower limb; M86.8X7 Other osteomyelitis, ankle and foot; I70.261 Atherosclerosis of native arteries of extremities with gangrene, right leg; E11.42 Type 2 diabetes mellitus with diabetic polyneuropathy; I25.10 Atherosclerotic heart disease of native coronary artery without angina pectoris; I25.2 Old myocardial infarction; E78.2 Mixed hyperlipidemia; Z89.412 Acquired absence of left great toe; Z95.820 Peripheral vascular angioplasty status with implants and grafts; E11.65 Type 2 diabetes mellitus with hyperglycemia; E87.5 Hyperkalemia; Z95.5 Presence of coronary angioplasty implant and graft; Z89.421 Acquired absence of other right toe(s); E11.69 Type 2 diabetes mellitus with other specified complication; I16.0 Hypertensive urgency; D64.9 Anemia, unspecified; E86.0 Dehydration; E87.8 Other disorders of electrolyte and fluid balance, not elsewhere classified; I10 Essential (primary) hypertension; G89.29 Other chronic pain; M54.9 Dorsalgia, unspecified; R11.2 Nausea with vomiting, unspecified; E11.43 Type 2 diabetes mellitus with diabetic autonomic (poly)neuropathy; K31.84 Gastroparesis; H61.23 Impacted cerumen, bilateral; Z79.82 Long term (current) use of aspirin; Z79.84 Long term (current) use of oral hypoglycemic drugs; Z79.899 Other long term (current) drug therapy; Z88.8 Allergy status to other drugs, medicaments and biological substances; Z98.1 Arthrodesis status